=== PATIENT | female | born 1955 | race Hispanic/Latino ===

== ENCOUNTER 2020-11-30 06:25 | Day surgery (SDC) | payer OTHER ==
--- NOTE | 2020-11-27 16:33 | EKG ---
Test Date: 2020-11-27 Test Time: 09:16:48 Hazardous Waste Remover: AIDA MEASUREMENT RESULTS: Intervals: Rate: 83 [place]: 154 QRSD: 78 QT: 364 QTc: 427 [place]: P: 74 [place]: 154 QRS: 2 T: 33 INTERPRETIVE STATEMENTS: Normal sinus rhythm Normal ECG Compared to ECG 02/23/2015 23:13:31 T-wave abnormality no longer present Electronically Signed On 11-27-20 16:32:[address]
[2020-11-30] MEDS ORDERED: NA CHLORIDE 0.9% 1,000 ML ONE (07:07)
[2020-11-30] MEDS ORDERED: ROCURONIUM 50 MG/5 ML VIAL IV ONE (07:29)
[2020-11-30] MEDS ORDERED: FENTANYL CITR 100 MCG/2 ML ONE (07:29)
[2020-11-30] MEDS ORDERED: MIDAZOLAM HCL 2 MG/2 ML INJ ONE (07:29)
[2020-11-30] MEDS ORDERED: LIDOCAINE 2% MPF 5 ML VIAL ONE (07:29)
[2020-11-30] MEDS ORDERED: dexAMETHasone 10 MG/ML VIAL ONE (07:29)
[2020-11-30] MEDS ORDERED: propofoL 200 MG/20 ML VIAL IV ONE (07:29)
[2020-11-30] MEDS ORDERED: ONDANSETRON 4 MG/2 ML VIAL ONE (07:30)
--- NOTE | 2020-11-30 08:07 | P.BOP ---
Preoperative diagnosis: chronic maxillary sinusitis, mucus recirculation Postoperative diagnosis: same Primary procedure: right maxillary antrostomy Wellness Ambassador: NONE,NONE Estimated blood loss: 5ml Specimen: right sinus Findings: very thick mucus recirculation Anesthesia: General Complications: None Implants: Xerogel Fluids & blood products: crystalloid 600ml Transferred to: Recovery Room Condition: Good
[2020-11-30] MEDS ORDERED: GLYCOPYRROLATE 0.2 MG/ML SYR ONE (08:15)
[2020-11-30] MEDS ORDERED: NEOSTIGMINE 1 MG/ML -5 ML ONE (08:15)
[2020-11-30] MEDS ORDERED: OXYMETAZOLINE HCL 0.05% 15ML NAS ONE (08:40)
[2020-11-30] MEDS ORDERED: NA CHLORIDE 0.9% 500 ML ONE (08:40)
[2020-11-30] MEDS ORDERED: MEPERIDINE HCL 25 MG/ML SYR ONE (08:50)
[2020-11-30] MEDS ORDERED: ACETAMINOPHEN 325 MG TABLET ONE (09:35)
[2020-11-30 09:45] VITALS: BP 147/56; TEMP 97; O2SAT 93
--- NOTE | 2020-11-30 19:32 | OP ---
Date of Procedure: 11/30/2020 Surgeon: Jacquelyn Christianson MD Preoperative Diagnosis: Chronic maxillary sinusitis, postnasal drainage with mucus recirculation. Postoperative Diagnoses: Chronic maxillary sinusitis, postnasal drainage with mucus recirculation. Procedure Performed: Nasal endoscopy with right maxillary antrostomy. Surgical Findings: Thick mucus noted to recirculate within the middle meatus which was white to clear in color after revision of the maxillary antrostomy. On the anterior superior edge of the antrostomy, there was an area of pulsation submucosally and additional resection was deferred due to concern for risk of brisk bleeding. Description Of Procedure: The patient was brought to the operating room. She was placed under general anesthesia via oral endotracheal tube. The head of bed was turned 90 degrees. The nasal hairs were trimmed and the nose was packed with Afrin-soaked pledgets. After removal, a 30-degree endoscope was used to perform a nasal endoscopy on the right side. The middle meatus was noted to have a previously created surgical antrostomy with thick white mucus recirculating around a tissue band. A curved suction was used to remove this mucus which was very thick like the consistency of rubber cement. After suctioning, a 70-degree endoscope was used to visualize the region. A-90 degree Blakesley was used to remove the mucosa between the natural and created ostium. Afrin-soaked pledgets were applied. After removal, the nasal cavity was thoroughly irrigated with saline and the area was re-examined. I had a small concern that the clot covered area may be obscuring the true natural ostium but on careful inspection, this anterior-superior portion of the antrostomy was noted to have submucosal pulsation suggesting a moderate arterial vessel underlying and due to this finding, the decision was made to forego further resection. The area was thoroughly suctioned and the middle meatus was packed with a Xerogel dissolvable sinus packing which was then saturated with saline. The nasopharynx was thoroughly suctioned. The procedure was concluded. All pledget counts were reported to me as correct. The patient was then returned to care of anesthesia for awakening extubation in the operating room. Disposition: The patient will be discharged home later today in the care of her family and is instructed to use salt water irrigations 3 to 4 times a day until followup visit. LAVERNE/KUSH Voice ID: [id number] Report ID: [id number] KO
== END 2020-11-30 09:30 | disposition home or self-care (01) ==
LOC: OR 06:25
PROVIDERS: ATTEND Otolaryngology
PROC: 099Q8ZZ Drainage of Right Maxillary Sinus, Via Natural or Artificial Opening Endoscopic (ICD-10-PCS; principal; 2020-11-30 07:30)
DX: J32.0 Chronic maxillary sinusitis (principal); R03.0 Elevated blood-pressure reading, without diagnosis of hypertension; F10.99 Alcohol use, unspecified with unspecified alcohol-induced disorder; Z20.822 Contact with and (suspected) exposure to COVID-19; Z53.09 Procedure and treatment not carried out because of other contraindication
CPT/HCPCS: 93005; 82947 ×2; 31256; U0002; J2704; J2250; J3010; J1100; J2175; J2710; J7040; J7030; J2405

== ENCOUNTER 2021-02-07 15:28 | Emergency (ER) | payer OTHER ==
--- OUTSIDE RECORDS SUMMARY | 2021-02-07 15:31 | XMS REPORT | Continuity of Care Document ---
:[address] [facility] t Address [address] [place] [address] Care Team Providers Name Role Phone Alcon Pérez MD Attending Clinician Problems This patient has no known problems. Allergies, Adverse Reactions, Alerts This patient has no known allergies or adverse reactions. Medications This patient has no known medications. Procedures This patient has no known procedures. Encounters Start End Encounter Admission Attending Care Care Encounter Source Date/Time Date/Time Type Type Clinicians Facility Department ID 2020-04-09 2020-04-09 Telephone WALDO Pérez [id number] 00:00:00 00:00:00 Jamie Mcrae [id number] Suni [id number] Kellee [id number] nal 092 Building Results This patient has no known results.
[2021-02-07] MEDS ORDERED: METOCLOPRAMIDE 10 MG/2mL INJ ONE (17:39)
[2021-02-07] MEDS ORDERED: MORPHINE 4 MG/ML SYR ONE (17:40)
[2021-02-07] MEDS ORDERED: LORazepam 2 MG/ML VIAL ONE (17:40)
[2021-02-07] MEDS ORDERED: NA CHLORIDE 0.9% 500 ML ONE ×2 (17:40→20:34)
[2021-02-07] MEDS ORDERED: DIPHENHYDRAMINE 50 MG/ML VIAL ONE (17:40)
--- NOTE | 2021-02-07 18:18 | RAD REPORT ---
EXAM DESCRIPTION: CT - Stone Protocol - 02/07/2021 5:40 pm CLINICAL HISTORY: ABD PAIN COMPARISON: Abdomen Pelvis Wo Contrast dated 02/06/2021 TECHNIQUE: Axial [address] imaging of the abdomen and pelvis was performed without IV contrast. No IV contrast was given because of allergy, abnormal renal function, patient refusal or physician re quest. No oral contrast administered. All CT scans are performed using dose optimization technique as appropriate and may include automated exposure control or mA/KV adjustment according to patient size. FINDINGS: No suspicious findings in the lung bases. Mild diffuse fatty infiltration of the liver noted with no focal lesion. Pronounced atrophy of the pa ncreatic parenchyma noted. No pancreatic mass lesions seen. Spleen is unremarkable. Cholecystectomy c lips are present. No biliary tree dilatation. Duodenal diverticulum is present. No hydronephrosis or suspicious renal mass. No significant adrenal finding. Isodense renal masses an d pyelonephritis cannot be excluded in the absence of IV contrast. Urinary bladder is fully contracte d. Uterus and ovaries show no acute or suspicious findings. A 2.6 centimeter persistent ovarian or pa raovarian low-density mass left adnexa again noted. No dilated bowel loops or bowel wall thickening. Left-sided colonic diverticulosis without diverticul itis. No free air, free fluid or inflammatory stranding. No hernia, mass or bulky lymphadenopathy. No suspicious bony findings. Right pelvis surgical change noted. Neurostimulator wires in place with battery pack in the left flank fatty tissues. IMPRESSION: Non-contrast enhanced CT abdomen and pelvis imaging show no acute or emergent finding. Nonacute findings detailed in the body of the report. Full assessment is limited is the absence of IV contrast.
[2021-02-07 19:09] LABS: Absolute Lymphocytes (CBC) 1.8 K/uL (0.7-4.9); Basophils % 0.4 % (0-1.3); Hematocrit 37.8 % (36.0-45.0); Lymphocytes % 25.4 % (15.3-44.8); MPV 8.6 fL (7.6-11.3); RBC Red Blood Cell Count 4.53 M/uL (3.86-4.86)
[2021-02-07 19:24] LABS: ALT/SGPT 26 U/L (12-78); AST/SGOT 19 U/L (15-37); Albumin 3.5 g/dL (3.4-5.0); Alkaline Phosphatase 112 U/L (45-117); BUN Blood Urea Nitrogen 16 mg/dL (7-18); Bicarbonate 25 mmol/L (21-32); Bilirubin Direct 0.2 mg/dL (0-0.2); Bilirubin Total 0.5 mg/dL (0.2-1.0); Glucose Level 106 mg/dL (74-106); Lipase 54 U/L (73-393); Potassium 3.6 mmol/L (3.5-5.1); Protein, Total 6.9 g/dL (6.4-8.2); Sodium Level 139 mmol/L (136-145)
--- NOTE | 2021-02-07 20:41 | EDPHYS ---
Physician Documentation [facility] Name: Tina Elizalde Age: 65 yrs Sex: Female : 1955 Arrival Date: 02/07/2021 Time: 15:31 Bed 15 Private MD: Wilfrido Miller ED Physician Tom Saravia HPI: 02/07 17:10 This 65 yrs old Female presents to ER via Wheelchair with complaints of Chest jmm Pain, Back Pain, Abdominal Pain, Diarrhea. 17:10 The patient presents with abdominal pain. Onset: The symptoms/episode began/occurred jmm gradually. The symptoms do not radiate. Associated signs and symptoms: Pertinent positives: diarrhea. The symptoms are described as achy. Modifying factors: The symptoms are alleviated by nothing, the symptoms are aggravated by nothing. This is a 65 year old female with a history of DM, HTN, pancreatitis, that presents to the ED with complaints of lower abdominal pain, bloody diarrhea. Sent by GI due to intractable pain. Symptoms have been chronic but worsened over the past week. Recent colonoscopy in December. . Historical: - Allergies: 16:00 TETRACYCLINES; jd3 16:00 Bactrim; jd3 16:00 Solu-Medrol; jd3 16:00 Iodine and Iodide Containing Products; jd3 - PMHx: 16:00 Diabetes - IDDM; Hypertension; Pancreatitis; heart problems; jd3 - PSHx: 16:00 Tonsillectomy; Cholecystectomy; back; jd3 - Immunization history:: Adult Immunizations up to date. - Social history:: Smoking status: Patient denies any tobacco usage or history of. ROS: 17:10 Constitutional: Negative for fever, chills, and weight loss, Cardiovascular: Negative jmm for chest pain, palpitations, and edema, Respiratory: Negative for shortness of breath, cough, wheezing, and pleuritic chest pain. 17:10 Abdomen/GI: Positive for abdominal pain. 17:10 All other systems are negative. Exam: 17:10 Head/Face: atraumatic. Eyes: EOMI, no conjunctival erythema appreciated ENT: Moist jmm Mucus Membranes Neck: Trachea midline, Supple Chest/axilla: Normal chest wall appearance and motion. Cardiovascular: Regular rate and rhythm. No edema appreciated Respiratory: Normal respirations, no respiratory distress appreciated 17:10 Back: Normal ROM Skin: General appearance color normal MS/ Extremity: Moves all extremities, no obvious deformities appreciated, no edema noted to the lower extremities Neuro: Awake and alert, normal gait Psych: Behavior is normal, Mood is normal, Patient is cooperative and pleasant 17:10 Constitutional: The patient appears alert, awake, anxious, uncomfortable. 17:10 Abdomen/GI: Inspection: abdomen appears normal, Bowel sounds: normal, Palpation: soft, moderate abdominal tenderness, in the suprapubic area, right lower quadrant and left lower quadrant. Vital Signs: 16:00 BP 120 / 91; Pulse 89; Resp 17 S; Temp 97.5(TE); Pulse Ox 98% on R/A; Weight 63.5 kg jd3 (R); Height 5 ft. 1 in. (154.94 cm) (R); Pain 9/10; 20:15 BP 140 / 67; Pulse 83; Resp 16; Pulse Ox 98% on R/A; jb4 20:45 BP 125 / 53; Pulse 83; Resp 18; Pulse Ox 97% on R/A; jb4 16:00 Body Mass Index 26.45 (63.50 kg, 154.94 cm) jd3 MDM: 17:10 Patient medically screened. [facility] 20:25 Data reviewed: vital signs, nurses notes. ED course: NARX SCORE = 110. [facility] 20:37 Counseling: I had a detailed discussion with the patient and/or guardian regarding: the [facility] historical points, exam findings, and any diagnostic results supporting the discharge/admit diagnosis, lab results, radiology results, the need for outpatient follow up, to return to the emergency department if symptoms worsen or persist or if there are any questions or concerns that arise at home. ED course: Pain relieved in the ED. Will follow up with Dr. Rousseau tomorrow for reevaluation. Patient is otherwise given strict return precautions. Patient/familty understood and agrees with the plan of care. . 02/07 17:12 Order name: Basic Metabolic Panel; Complete Time: 19:29 [facility] 02/07 17:12 Order name: CBC with Diff; Complete Time: :29 [facility] 02/07 17:12 Order name: Hepatic Function; Complete Time: :29 [facility] 02/07 17:12 Order name: Lipase; Complete Time: :29 [facility] 02/07 17:12 Order name: CT Stone Protocol; Complete Time: 18:19 [facility] 02/07 17:25 Order name: Troponin (emerg Dept Use Only); Complete Time: 19:33 [facility] 02/07 17:12 Order name: IV Saline Lock; Complete Time: 18:49 [facility] 02/07 17:12 Order name: Labs collected and sent; Complete Time: 18:49 [facility] 02/07 17:25 Order name: EKG - Nurse/Tech; Complete Time: 18:48 [facility] Administered Medications: 18:47 Drug: NS 0.9% 500 ml Route: IV; Rate: bolus; Site: right wrist; tr6 18:48 Drug: Ativan (LORazepam) 1 mg Route: IVP; Site: right wrist; tr6 18:48 Drug: diphenhydrAMINE 12.5 mg Route: IVP; Site: right wrist; tr6 18:48 Drug: Reglan (metoCLOPramide) 10 mg Route: IVP; Site: right wrist; tr6 18:49 Drug: morphine 4 mg Route: IVP; Site: right wrist; tr6 20:18 Drug: NS 0.9% 500 ml Route: IV; Rate: bolus; Site: right wrist; jb4 20:45 Follow up: Response: No adverse reaction; IV Status: Completed infusion; IV Intake: jb4 500ml Disposition: 02/07/21 20:40 Discharged to Home. Impression: Lower abdominal pain, unspecified. - Condition is Stable. - Discharge Instructions: Abdominal Pain, Adult. - Prescriptions for Zofran 4 mg Oral tablet - take 1 tablet by ORAL route 4 times per day; 20 tablet. Bentyl 20 mg Oral Tablet - take 2 tablet by ORAL route every 6 hours As needed; 40 tablet. Cipro 500 mg Oral Tablet - take 1 tablet by ORAL route every 12 hours for 10 days; 20 tablet. Flagyl 500 mg Oral Tablet - take 1 tablet by ORAL route every 6 hours for 10 days; 40 tablet. Tylenol- Codeine #3 300-30 mg Oral Tablet - take 1 tablet by ORAL route every 4-6 hours As needed; 12 tablet. - Medication Reconciliation Form, Thank You Letter, Antibiotic Education, Prescription Opioid Use form. - Follow up: Trey Rousseau MD; When: 1 - 2 days; Reason: Recheck today's complaints, Continuance of care, Re-evaluation by your physician. Signatures: Dispatcher [employer] EDMarcell Mosqueda PA PA jmm Bryson, James, RN RN jb4 Zaid Velarde RN RN jd3 Annmarie Traore RN RN tr6 Corrections: (The following items were deleted from the chart) 21:11 17:12 Urine Dipstick-Ancillary ordered. cristy munguia 21:13 20:40 02/07/2021 20:40 Discharged to Home. Impression: Lower abdominal pain, jb4 unspecified. Condition is Stable. Forms are Medication Reconciliation Form, Thank You Letter, Antibiotic Education, Prescription Opioid Use. Follow up: Trey Rousseau; When: 1 - 2 days; Reason: Recheck today's complaints, Continuance of care, Re-evaluation by your physician. cristy
--- NOTE | 2021-02-07 20:41 | ER ---
Nurse's Notes [facility] Name: Tina Elizalde Age: 65 yrs Sex: Female : 1955 Arrival Date: 02/07/2021 Time: 15:31 Bed 15 Private MD: Wilfrido Miller Diagnosis: Lower abdominal pain, unspecified Presentation: 02/07 15:57 Chief complaint: Patient states: "I am having some chest pain and diarrhea and nausea jd3 and vomiting.". Coronavirus screen: At this time, the client does not indicate any symptoms associated with coronavirus-19. Ebola Screen: Patient negative for fever greater than or equal to 101.5 degrees Fahrenheit, and additional compatible Ebola Virus Disease symptoms. Initial Sepsis Screen: Does the patient meet any 2 criteria? No. Patient's initial sepsis screen is negative. Does the patient have a suspected source of infection? No. Patient's initial sepsis screen is negative. Risk Assessment: Do you want to hurt yourself or someone else? Patient reports no desire to harm self or others. Onset of symptoms was February 07, 2021. 15:57 Method Of Arrival: Wheelchair jd3 15:57 Acuity: ALETHEA 2 jd3 Historical: - Allergies: 16:00 TETRACYCLINES; jd3 16:00 Bactrim; jd3 16:00 Solu-Medrol; jd3 16:00 Iodine and Iodide Containing Products; jd3 - PMHx: 16:00 Diabetes - IDDM; Hypertension; Pancreatitis; heart problems; jd3 - PSHx: 16:00 Tonsillectomy; Cholecystectomy; back; jd3 - Immunization history:: Adult Immunizations up to date. - Social history:: Smoking status: Patient denies any tobacco usage or history of. Screenin:57 Abuse screen: Denies threats or abuse. Denies injuries from another. Nutritional tr6 screening: No deficits noted. Tuberculosis screening: No symptoms or risk factors identified. Fall Risk None identified. Assessment: 16:54 General: Appears distressed, uncomfortable, Behavior is crying. Pain: Complains of pain tr6 in c/o "lower abdominal pain radiating to pelvis and down b/l legs". Pain: Neuro: No deficits noted. Cardiovascular: No deficits noted. Respiratory: No deficits noted. GI: Abdomen is distended, Reports bloody stool. : No deficits noted. EENT: No deficits noted. Derm: No deficits noted. Musculoskeletal: No deficits noted. 17:36 Reassessment: pt transferred to AR via wheelchair. tr6 20:00 Reassessment: Patient appears in no apparent distress at this time. Patient and/or jb4 family updated on plan of care and expected duration. Pain level reassessed. Patient is alert, oriented x 3, equal unlabored respirations, skin warm/dry/pink. 21:00 Reassessment: Patient appears in no apparent distress at this time. Patient and/or jb4 family updated on plan of care and expected duration. Pain level reassessed. Patient is alert, oriented x 3, equal unlabored respirations, skin warm/dry/pink. Vital Signs: 16:00 BP 120 / 91; Pulse 89; Resp 17 S; Temp 97.5(TE); Pulse Ox 98% on R/A; Weight 63.5 kg j (R); Height 5 ft. 1 in. (154.94 cm) (R); Pain 9/10; 20:15 BP 140 / 67; Pulse 83; Resp 16; Pulse Ox 98% on R/A; jb4 20:45 BP 125 / 53; Pulse 83; Resp 18; Pulse Ox 97% on R/A; jb4 16:00 Body Mass Index 26.45 (63.50 kg, 154.94 cm) [facility] ED Course: 15:31 Patient arrived in ED. mr 15:31 Wilfrido Miller MD is Private Physician. mr 15:57 Triage completed. jd3 16:00 Arm band placed on. jd3 16:01 EKG completed in triage. Results shown to MD. jd3 16:48 Annmarie Traore, RN is Primary Nurse. tr6 16:49 Marcell Mcneil PA is PHCP. [facility] 16:49 Tom Saravia MD is Attending Physician. [facility] 16:57 Patient has correct armband on for positive identification. Bed in low position. Call tr6 light in reach. Side rails up X 1. city auditor on. Pulse ox on. NIBP on. Door closed. Noise minimized. Visitors limited. Lights dimmed. Moved to private room. Warm blanket given. Diet: Patient is NPO. 16:57 No provider procedures requiring assistance completed. Patient maintains SpO2 tr6 saturation greater than 95% on room air. 17:40 CT Stone Protocol In Process Unspecified. EDMS 18:48 EKG done, by ED staff, reviewed by Marcell ROBERTS. mh5 18:49 Inserted saline lock: 22 gauge in right wrist, using aseptic technique. tr6 20:40 Trey Rousseau MD is Referral Physician. jmm 21:12 IV discontinued, intact, bleeding controlled, No redness/swelling at site. Pressure jb4 dressing applied. Administered Medications: 18:47 Drug: NS 0.9% 500 ml Route: IV; Rate: bolus; Site: right wrist; tr6 18:48 Drug: Ativan (LORazepam) 1 mg Route: IVP; Site: right wrist; tr6 18:48 Drug: diphenhydrAMINE 12.5 mg Route: IVP; Site: right wrist; tr6 18:48 Drug: Reglan (metoCLOPramide) 10 mg Route: IVP; Site: right wrist; tr6 18:49 Drug: morphine 4 mg Route: IVP; Site: right wrist; tr6 20:18 Drug: NS 0.9% 500 ml Route: IV; Rate: bolus; Site: right wrist; jb4 20:45 Follow up: Response: No adverse reaction; IV Status: Completed infusion; IV Intake: jb4 500ml Intake: 20:45 IV: 500ml; Total: 500ml. jb4 Outcome: 20:40 Discharge ordered by . jmm 21:12 Discharged to home via wheelchair, with family. jb4 21:12 Condition: stable 21:12 Discharge instructions given to patient, family, Instructed on discharge instructions, follow up and referral plans. medication usage, Demonstrated understanding of instructions, follow-up care, medications, Prescriptions given X 5 21:13 Patient left the ED. jb4 Signatures: Dispatcher [employer] EDMS Marcell Mcneil PA PA jmm Rivera, Mary mr Bryson, James RN RN Rachel Gandhi Zaid Hernandez RN RN jd3 Annmarie Traore RN RN tr6
[2021-02-07 21:33] VITALS: TEMP 97.5
[2021-02-07 21:36] VITALS: BP 125/53; O2SAT 97
--- NOTE | 2021-02-08 15:57 | EKG ---
Test Date: 2021-02-07 Test Time: 18:58:09 Wind Up Operator: MAI MEASUREMENT RESULTS: Intervals: Rate: 85 HI: 182 QRSD: 76 QT: 376 QTc: 447 [place]: P: 70 HI: 182 QRS: -1 T: 13 INTERPRETIVE STATEMENTS: Normal sinus rhythm Possible Anterior infarct, age undetermined Abnormal ECG Compared to ECG 02/07/2021 16:05:25 No significant changes Electronically Signed On 02-08-21 15:56:[address]
--- NOTE | 2021-02-08 15:58 | EKG ---
Test Date: 2021-02-07 Test Time: 16:05:25 Web Applications Developer: HUANG MEASUREMENT RESULTS: Intervals: Rate: 85 DC: 164 QRSD: 74 QT: 370 QTc: 440 [place]: P: 77 DC: 164 QRS: -1 T: 35 INTERPRETIVE STATEMENTS: Normal sinus rhythm Possible Anterior infarct, age undetermined Abnormal ECG Compared to ECG 11/27/2020 09:16:48 Myocardial infarct finding now present Electronically Signed On 02-08-21 15:56:[address]
== END 2021-02-07 21:13 | disposition home or self-care (01) ==
LOC: ER 15:28
DX: R10.30 Lower abdominal pain, unspecified (principal); E11.9 Type 2 diabetes mellitus without complications; I10 Essential (primary) hypertension; Z88.1 Allergy status to other antibiotic agents; Z88.8 Allergy status to other drugs, medicaments and biological substances; Z91.048 Other nonmedicinal substance allergy status
CPT/HCPCS: 93005 ×2; 85025; 80048; 36415; 80076; 84484; 83690; 76377; 74176; J2765; J1200; J7040 ×2

== ENCOUNTER 2022-02-19 06:28 | Day surgery (SDC) | payer OTHER ==
[2022-02-18 09:39] LABS: Absolute Lymphocytes (CBC) 1.8 K/uL (0.7-4.9); Hematocrit 35.2 % (36.0-45.0); Lymphocytes % 26.1 % (15.3-44.8); MCV 84.5 fL (80-100); MPV 8.2 fL (7.6-11.3); RBC Red Blood Cell Count 4.17 M/uL (3.86-4.86)
--- NOTE | 2022-02-18 09:54 | RAD REPORT ---
EXAM DESCRIPTION: RAD - Chest Pa And Lat (2 Views) - 02/18/2022 9:34 am CLINICAL HISTORY: Pre op pending mass removal COMPARISON: Portable 02/22/2015 TECHNIQUE: Frontal and lateral views of the chest were obtained. FINDINGS: The lungs are clear of an acute process. Interstitial pattern is not substantially differe nt from prior imaging. Heart size is normal and central vasculature is within normal limits. No pl eural effusion or pneumothorax seen. No acute bony finding noted. No aortic abnormality. IMPRESSION: No acute cardiopulmonary process. No significant change from comparison study.
[2022-02-18 10:03] LABS: Potassium 3.8 mmol/L (3.5-5.1)
[2022-02-18 10:07] LABS: SARS-CoV-2 Antigen Rapid Res Negative (Negative)
--- NOTE | 2022-02-18 12:46 | EKG ---
Test Date: 2022-02-18 Test Time: 09:08:05 Sewing Supervisor: AIDA MEASUREMENT RESULTS: Intervals: Rate: 79 [place]: 162 QRSD: 78 QT: 368 QTc: 421 [place]: P: 47 [place]: 162 QRS: 4 T: 13 INTERPRETIVE STATEMENTS: Normal sinus rhythm Normal ECG Compared to ECG 02/07/2021 18:58:09 Myocardial infarct finding no longer present Electronically Signed On 02-18-22 12:46:21 CDT by Demarco Carter
[2022-02-19] MEDS ORDERED: NA CHLORIDE 0.9% 1,000 ML ONE (06:55)
[2022-02-19] MEDS ORDERED: FENTANYL CITR 100 MCG/2 ML ONE (07:12)
[2022-02-19] MEDS ORDERED: LIDOCAINE 1% MPF 5 ML VIAL ONE (07:12)
[2022-02-19] MEDS ORDERED: propofoL 200 MG/20 ML VIAL IV ONE (07:12)
[2022-02-19] MEDS ORDERED: ONDANSETRON 4 MG/2 ML VIAL ONE ×2 (07:38→09:48)
[2022-02-19] MEDS ORDERED: ONDANSETRON 4 MG/2 ML VIAL IV ONE (07:40)
[2022-02-19] MEDS: CEFAZOLIN SODIUM 1 GM/VIAL ONE ×2 (08:10→08:35)
[2022-02-19] MEDS ORDERED: NS 0.9% VIAL 10 ML ONE ×2 (08:16→08:44)
[2022-02-19] MEDS ORDERED: KETOROLAC 30 MG/ML INJ ONE (08:31)
[2022-02-19] MEDS ORDERED: EPHEDRINE SULF 50 MG/ML VIAL ONE (08:44)
--- NOTE | 2022-02-19 09:23 | P.BOP ---
Preoperative diagnosis: Right buttock deep tender subQ mass Postoperative diagnosis: same Primary procedure: Excisional biopsy Right buttock deep tender subQ mass 4x4cm Estimated blood loss: <10cc Specimen: mass Findings: mass Anesthesia: General Complications: None Drain(s): RYAN drain Transferred to: Recovery Room Condition: Good
[2022-02-19] MEDS: MORPHINE 4 MG/ML SYR ONE ×4 (09:35→09:56)
[2022-02-19] MEDS: PROMETHAZINE INJ 25 MG/ML AMP ONE ×2 (10:01→10:08)
[2022-02-19 12:23] VITALS: BP 172/76; TEMP 98; O2SAT 99
--- NOTE | 2022-02-19 13:05 | OP ---
Date of Procedure: 02/19/2022 Surgeon: Livan Logan MD Preoperative Diagnosis: Right buttock deep tender subcutaneous mass. Postoperative Diagnosis: Right buttock deep tender subcutaneous mass. Procedure: Excisional biopsy right buttock deep tender subcutaneous mass 4 x 4 cm. Estimated Blood Loss: Less than 10 mL. Finding: Mass. Anesthesia: General plus local. Indication: This is the case of a 66-year-old patient, who comes to us with a tender right buttock m ass. The area is getting bigger. She wants that excised. The benefits, alternatives, and risks of excision fully explained, which include, but not limited to infection, bleeding, damage to adjacent s tructures, anesthesia complication, DC, even . She also understands this may not relieve any sy mptoms. She might need more than one surgical intervention. She understood and signed a consent. Procedure In Detail: The patient was brought to the operating room, placed in supine position. Anes thesia was done without complication. The patient was placed in lateral decubitus position with prop er protection. The area of concern was marked previously by me and the patient in the holding room. So, after prepping that area, we made an incision right in that region. We left the local anestheti c for the end since we do not want to just disturb the anatomy. Once incision was made, we noticed t he deep mass inside. We have to go deep at least 2 to 3 cm deep and then we found this mass near the muscle on the buttock region. The mass had to be completely excised leaving a cavity behind. The a danielito was irrigated. Hemostasis was obtained. This is promptly seroma because of the location and the size of it, so I proceeded to leave a RYAN drain in that area exiting through another site, secured th at in place with 3-0 nylon. The area was irrigated. Then, we proceeded to close this in layers; bryan p layers with 3-0 chromic and 3-0 chromic and then stitched outside with 3-0 nylon and sterile dressi ngs on top. Hemostasis and irrigation were obtained before closure, also local anesthetic. The carson ent tolerated the procedure well. The patient was sent to recovery in stable condition. DARIO/KUSH Voice ID: [id number] Report ID: [id number]
--- NOTE | 2022-02-19 13:05 | DS ---
Date of Discharge: 02/19/2022 Diagnosis: Right buttock tender subcutaneous mass. Procedure: Excisional biopsy of right buttock deep tender subcutaneous mass. Disposition: Home. Activity: As tolerated. No heavy lifting. Plan: Follow up in my office in 1 week. Call for appointment at [phone]. The patient J P drain and record the output every 24 hours. Medications: See orders. DARIO/KUSH Voice ID: [id number] Report ID: [id number]
== END 2022-02-19 11:17 | disposition home or self-care (01) ==
LOC: OR 06:28
PROVIDERS: ATTEND Surgery
PROC: 0JB90ZZ Excision of Buttock Subcutaneous Tissue and Fascia, Open Approach (ICD-10-PCS; principal; 2022-02-19 08:30)
DX: D17.1 Benign lipomatous neoplasm of skin and subcutaneous tissue of trunk (principal); Z20.822 Contact with and (suspected) exposure to COVID-19
CPT/HCPCS: 93005; 85025; 80048; 36415; 82947 ×2; 88304; 71046; 87811; 11404; J2704; J2550; J3010; J7030; J2405 ×3; J0690; 88305

== ENCOUNTER 2023-11-30 11:06 | Emergency (ER) | payer OTHER ==
--- OUTSIDE RECORDS SUMMARY | 2023-11-30 11:10 | XMS REPORT | Continuity of Care Document ---
Author Name Unknown Address [address] [facility] [address] [place] [address] [facility] thconnect Address [address] [facility] [address] [place] [address] Care Team Providers Care Install And Repair Technician Name Role Phone Wilfrido Miller Primary Care Physician [phone] SHERRI LOPEZ Attending Clinician Unavailable Lab, Ang - Db Attending Clinician Unavailable Sherri Lopez MD Attending Clinician [phone] TRINI TRIMBLE Attending Clinician Unavailable Geovani CULLEN, Renee Attending Clinician [phone] DO MALONE Attending Clinician Unavailable DO MALONE Attending Clinician Unavailable [email or web address]_Kadiyala_S Attending Clinician Unavaila ble Doctor Unassigned, Eleele Attending Clinician U RENEE Camarena Attending Clinician Unavailable SANYA Attending Clinician Unavailable JAMIE PÉREZ Attending Clinician Unavail able JAMIE PÉREZ Attending Clinician Unavail able GERARDO KAT Attending Clinician Unavailable MONICA LEON Attending Clinician Unavailable Therapy, Adc Covid Infusion Attending Clinician Unavailable Monica Leon MD Attending Clinician [phone] Jamie Pérez MD Attending Clinician [phone] ERIKA GREY Attending Clinician Unavaila miguel Pob, [facility] Main Attending Clinician Unavailmiles mishra Rai, MD, Erika Rascon Attending Clinician + [phone] OLIVIA STEVENS Attending Clinician Unavailable RHEA CRUZ Attending Clinician Unavailab cade JEFFRIES, ENTER NAME IN NOTES Attending Clinician U MARISOL Aviles Attending Clinician Unavailable Demarco Carter Attending Clinician Unavailable MIREYA WEAVER Attending Clinician Unavail able CLARICE JENKINS Attending Clinician Unavailable TAMMIE LOPEZ Attending Clinician Unavail able JORDYN SAMPSON Attending Clinician Unavailab AZAEL Shelton Attending Clinician Unavailable JENNIFER DIGGS Attending Clinician Unavailable SUPRIYA MICHEL Attending Clinician Unavailable KACI PARRISH Attending Clinician Unavailable LEAH COLUNGA Attending Clinician Unavailable ARIANA DIAZ Attending Clinician Unavail able TAYA BONILLA Attending Clinician Unavailab TRINI Chapman Admitting Clinician Unavailable GC_GCBZW_Kadiyala_S Admitting Clinician Unavaila miguel SEGUNDO Admitting Clinician Unavailable OLIVIA STEVENS Admitting Clinician Unavailable Demarco Carter Admitting Clinician Unavailable MIREYA WEAVER Admitting Clinician Unavail able JORDYN SAMPSON Admitting Clinician Unavailab SUPRIYA Jean Admitting Clinician Unavailable JOE CHI Admitting Clinician Unavailable UMM COLMENARESURRABColin Admitting Clinician Unavailable Payers Payer Name Policy Type Policy Number Effective Date Expirati on Date Source Problems Condition Name Condition Details Condition Category Status Onset Date Resolution Date Last Treatment Date Treating Clinician Comments Source No known active problems No known active problems Disease [facility] Allergies, Adverse Reactions, Alerts Allergy Name Allergy Type Status Severity Reaction(s) Onset Date Inactive Date Treating Clinician Comments Source Tetracyc line Propensi ty to adverse reaction s Active Unknown - See comments 04-11 00:00: 00 Gets pancreati tis [facility] DECONGES T DRUG Active Palpitations 04-11 00:00: 00 [facility] ETODOLAC DRUG INGREDI Active Swelling 04-11 00:00: 00 [facility] SOLU-MED ROL MIX-O- AL DRUG Active Palpitations 04-11 00:00: 00 [facility] TETRACYC LINE DRUG INGREDI Active Unknown-Cmnt 04-11 00:00: 00 [facility] Deconges t Propensi ty to adverse reaction s Active Palpitations 04-11 00:00: 00 [facility] Etodolac Propensi ty to adverse reaction s Active Swelling 04-11 00:00: 00 [facility] Solu-Med rol Mix-O-Vi al Propensi ty to adverse reaction s Active Palpitations 04-11 00:00: 00 [facility] NO KNOWN ALLERGIE S Drug Class Active [facility] Social History Social Habit Start Date Stop Date Quantity Comments Source [facility] of Social function 2023-07-22 00:00:00 2023-07-22 00:00:00 [facility] Exposure to SARS-CoV-2 (event) 2022-04-06 00:00:00 2022-04-16 10:38:00 Not sure [facility] Sex Assigned At 1955 00:00:00 1955 00:00:00 [facility] Smoking Status Start Date Stop Date Source Tobacco smoking consumption unknown [facility] Medications Ordered Medication Name Filled Medication Name Start Date Stop Date Current Medication? Ordering Clinician Indication Dosage Frequency Signature (SIG) Comments Components Source empaglifloz in (JARDIANCE) 25 mg Tab tablet 11-29 00:00: 00 Yes [id number] 25mg Take 1 tablet by mouth in the morning. [facility] metformin ER 750 mg 24 hr tablet 11-29 00:00: 00 Yes [id number] 750mg Take 1 tablet by mouth in the morning and 1 tablet in the evening. [facility] metoprolol succinate XL 25 mg 24 hr tablet 11-17 00:00: 00 Yes Take 1 tablet every day by oral route. [facility] METFORMIN ER 750 mg 24 hr tablet 10-07 00:00: 00 11-29 00:00 :00 No [id number] 750mg TAKE 1 TABLET BY MOUTH DAILY WITH BREAKFAST [facility] empaglifloz in (JARDIANCE) 25 mg Tab 2022-08 00:00: 00 11-29 00:00 :00 No [id number] 25mg Take 1 tablet by mouth in the morning. [facility] empaglifloz in (JARDIANCE) 10 mg 2022-08 00:00: 00 07-22 00:00 :00 No [id number] 10mg TAKE 1 TABLET BY MOUTH IN THE MORNING [facility] pantoprazol e 40 mg EC tablet 01-20 08:51: 48 Yes 40mg Take 1 tablet by mouth in the morning and 1 tablet in the evening. [facility] ranolazine 500 mg 12 hr tablet 01-20 08:51: 48 Yes ranolazine ER 500 mg tablet,ext ended release,12 hr TAKE 1 TABLET BY MOUTH TWICE DAILY [facility] metformin ER 750 mg 24 hr tablet 01-20 00:00: 00 10-07 00:00 :00 No [id number] 750mg Take 1 tablet by mouth daily with breakfast. [facility] empaglifloz in 10 mg 01-20 00:00: 00 07-06 00:00 :00 No [id number] 10mg Take 1 tablet by mouth in the morning. [facility] cyclobenzap rine 10 mg tablet 511 00:00: 00 Yes [facility] pantoprazol e 40 mg EC tablet 04-16 10:58: 15 Yes 40mg Take 40 mg by mouth 2 (two) times daily. [facility] pravastatin 40 mg tablet 04-16 10:58: 15 Yes 40mg Take 40 mg by mouth at bedtime. [facility] diphenhydrA MINE 50 mg capsule 04-16 10:58: 15 Yes 50mg Take 50 mg by mouth at bedtime. [facility] metformin ER 750 mg 24 hr tablet 04-16 00:00: 00 01-20 00:00 :00 No [id number] 750mg Take 1 tablet by mouth daily with breakfast. [facility] busPIRone 5 mg tablet 12-20 00:00: 00 Yes 5mg Take 5 mg by mouth. [facility] pantoprazol e 40 mg EC tablet 03-02 14:51: 48 Yes 40mg Take 40 mg by mouth 2 (two) times daily. [facility] pravastatin 40 mg tablet 03-02 14:51: 48 Yes 40mg Take 40 mg by mouth at bedtime. [facility] diphenhydrA MINE 50 mg capsule 03-02 14:51: 48 Yes 50mg Take 50 mg by mouth at bedtime. [facility] pantoprazol e 40 mg EC tablet 03-02 09:51: 48 Yes 40mg Take 40 mg by mouth 2 (two) times daily. [facility] pravastatin 40 mg tablet 03-02 09:51: 48 Yes 40mg Take 40 mg by mouth at bedtime. [facility] diphenhydrA MINE 50 mg capsule 03-02 09:51: 48 Yes 50mg Take 50 mg by mouth at bedtime. [facility] famotidine 40 mg tablet 4-22 00:00: 00 Yes 40mg Take 40 mg by mouth daily. [facility] cetirizine 10 mg tablet 3-13 00:00: 00 Yes 10mg Take 10 mg by mouth. [facility] escitalopra m oxalate 20 mg tablet 09-27 00:00: 00 Yes 10mg Take 10 mg by mouth at bedtime. [facility] metFORMIN 500 mg tablet 2018-08 00:00: 00 04-16 00:00 :00 No 500mg Take 500 mg by mouth 2 (two) times daily. [facility] Vital Signs Vital Name Observation Time Observation Value Comments S niesha Systolic blood pressure 2023-11-30 14:35:00 129 mm[Hg] [facility] Diastolic blood pressure 2023-11-30 14:35:00 81 mm[Hg] [facility] Heart rate 2023-11-30 14:35:00 81 [facility] 2023-11-30 14:35:00 154.9 cm [facility] Body weight 2023-11-30 14:35:00 61.054 kg [facility] BMI 2023-11-30 14:35:00 25.43 kg/m2 [facility] Oxygen saturation in Arterial blood by Pulse oximetry 2023-11-30 14:35:00 98 /min [facility] Systolic blood pressure 2023-07-22 15:21:00 139 mm[Hg] [facility] Diastolic blood pressure 2023-07-22 15:21:00 63 mm[Hg] [facility] Heart rate 2023-07-22 15:21:00 85 /min Unive [facility] Body height 2023-07-22 15:21:00 154.9 cm [facility] Body weight 2023-07-22 15:21:00 60.51 kg [facility] BMI 2023-07-22 15:21:00 25.21 kg/m2 [facility] Oxygen saturation in Arterial blood by Pulse oximetry 2023-07-22 15:21:00 97 /min [facility] Systolic blood pressure 2023-01-20 13:38:00 153 mm[Hg] [facility] Diastolic blood pressure 2023-01-20 13:38:00 78 mm[Hg] [facility] Heart rate 2023-01-20 13:38:00 80 /min [facility] 2023-01-20 13:38:00 154.9 cm [facility] weight 2023-01-20 13:38:00 64.819 kg [facility] BMI 2023-01-20 13:38:00 27.00 kg/m2 [facility] Systolic blood pressure 2022-04-16 16:03:00 144 mm[Hg] [facility] Diastolic blood pressure 2022-04-16 16:03:00 77 mm[Hg] [facility] Heart rate 2022-04-16 16:02:00 65 /min [facility] Body height 2022-04-16 16:02:00 154.9 cm Univ [facility] Body weight 2022-04-16 16:02:00 61.1 kg Univ [facility] BMI 2022-04-16 16:02:00 25.45 kg/m2 [facility] Oxygen saturation in Arterial blood by Pulse oximetry 2022-04-16 16:02:00 96 /min [facility] Systolic blood pressure 2021-04-11 22:12:00 144 mm[Hg] [facility] Diastolic blood pressure 2021-04-11 22:12:00 54 mm[Hg] [facility] Heart rate 2021-04-11 22:12:00 95 /min Unive [facility] Body temperature 2021-04-11 22:12:00 36.28 Sammie [facility] Respiratory rate 2021-04-11 22:12:00 20 /min [facility] Oxygen saturation in Arterial blood by Pulse oximetry 2021-04-11 22:12:00 97 /min [facility] Body height 2021-04-11 20:49:00 154.9 cm [facility] Body weight 2021-04-11 20:49:00 67.132 kg Univ [facility] BMI 2021-04-11 20:49:00 27.96 kg/m2 [facility] BMI 2020-03-02 14:51:00 27.85 kg/m2 [facility] Oxygen saturation in Arterial blood by Pulse oximetry 2020-03-02 14:51:00 97 /min [facility] Systolic blood pressure 2020-03-02 14:51:00 125 mm[Hg] [facility] Diastolic blood pressure 2020-03-02 14:51:00 64 mm[Hg] [facility] Heart rate 2020-03-02 14:51:00 84 /min Unive [facility] Respiratory rate 2020-03-02 14:51:00 18 /min [facility] Body height 2020-03-02 14:51:00 154.9 cm [facility] Body weight 2020-03-02 14:51:00 66.86 kg [facility] Systolic blood pressure 2019-12-20 15:11:00 131 mm[Hg] [facility] Diastolic blood pressure 2019-12-20 15:11:00 65 mm[Hg] [facility] Heart rate 2019-12-20 15:11:00 78 /min Unive [facility] Body temperature 2019-12-20 15:11:00 36.61 Sammie [facility] Respiratory rate 2019-12-20 15:11:00 16 /min [facility] Body height 2019-12-20 15:11:00 154.9 cm [facility] Body weight 2019-12-20 15:11:00 65.091 kg [facility] BMI 2019-12-20 15:11:00 27.11 kg/m2 [facility] Procedures Procedure Date / Time Performed Performing Clinician Source POCT HEMOGLOBIN A1C TEST 2023-11-30 14:37:00 Juan Jose Lopez [facility] POCT HEMOGLOBIN A1C TEST 2023-07-22 15:32:00 Do Malone [facility] DME/SUPPLY JUSTIFICATION 2023-02-03 05:01:00 Doc tor Unassigned, Eleele [facility] POCT HEMOGLOBIN A1C TEST 2023-01-20 13:48:00 Estiven Stringer [facility] PATIENT FINANCIAL POLICY 2023-01-20 13:25:25 Doctor Unassigned, Eleele [facility] POCT HEMOGLOBIN A1C TEST 2022-04-16 16:04:00 Estiven Stringer [facility] ASSIGNMENT OF BENEFITS 2022-04-16 15:38:44 Docto r Unassigned, Eleele [facility] REFERRAL- REQUEST/RESPONSE 2022-02-07 05:01:00 Doctor Unassigned, Eleele [facility] CONSENT/REFUSAL FOR DIAGNOSIS AND TREATMENT 2021-04-11 05:01:00 Doctor Unassigned, Eleele [facility] CALCIUM 2019-12-20 16:20:00 Jamie Pérez [facility] CREATINE KINASE 2019-12-20 16:20:00 Jamie Péerz [facility] MAGNESIUM 2019-12-20 16:20:00 Jamie Pérez [facility] VITAMIN B12, LEVEL 2019-12-20 16:20:00 Jamie Pérez [facility] REFERRAL- REQUEST/RESPONSE 2019-10-14 06:01:00 Doctor Unassigned, Eleele [facility] Plan of Care Planned Activity Planned Date Details Comments Source Encounters Start Date/Time End Date/Time Encounter Type Admission Type Attending [facility] Care Facility Care Department Encounter ID Source 2023-11-30 11:30:00 2023-11-30 11:45:00 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 Worker Visit Lab, Ang - Db Sherri Lopez [facility] 1.2.840.114 350.1.13.10 4.2.7.2.686 [id number] [facility] 2023-11-30 11:30:00 2023-11-30 11:30:00 Outpatient R SHERRI LOPEZ [facility] [id number] [facility] 2023-11-30 10:00:00 2023-11-30 10:28:54 Office Visit Sherri Lopez [facility] 1.2.840.114 350.1.13.10 4.2.7.2.686 [id number] [facility] 2023-11-18 23:29:00 2023-11-19 19:15:00 observatio n alexa [facility] [id number] [facility] [id number] 2023-11-18 23:29:00 2023-11-19 19:15:00 Inpatient ER TRINI TRIMBLE [facility] [id number] [facility] 2023-10-06 00:00:00 2023-10-06 00:00:00 Refill Geovani [facility] [id number] 350.1.13.10 4.2.7.2.686 [id number] [facility] 2023-07-22 09:30:00 2023-07-22 09:58:24 Outpatient R FAISAL LEI [facility] [id number] [facility] 2023-07-22 09:30:00 2023-07-22 09:58:24 Office Visit Faisal [facility] 1.2.840.114 350.1.13.10 4.2.7.2.686 [id number] [facility] 2023-07-06 00:00:00 2023-07-06 00:00:00 Telephone Geovani [facility] 1.2.840.114 350.1.13.10 4.2.7.2.686 [id number] [facility] 2023-06-13 00:00:00 2023-06-13 00:00:00 Outpatient GC_GCBZW_Ka diyala_S PRIV [facility] [id number] [facility] 2023-02-06 00:00:00 2023-02-06 00:00:00 Telephone Geovani [facility] ANTELMO?[facility] 1.2840.114 350.1.13.10 4.2.7.2.686 [id number] [facility] 2023-02-03 00:00:00 2023-02-03 00:00:00 Orders Only Doctor Unassigned, Eleele [facility] 1.2840.114 350.1.13.10 4.2.7.2.686 [id number] [facility] 2023-02-02 00:00:00 2023-02-02 00:00:00 Telephone Faisal Do [facility] ANTELMO?[facility] 1.2840.114 350.1.13.10 4.2.7.2.686 [id number] [facility] 2023-01-27 00:00:00 2023-01-27 00:00:00 Telephone Stringer [facility] ANTELMO?[facility] 1.840.114 350.1.13.10 4.2.7.2.686 [id number] [facility] 2023-01-27 00:00:00 2023-01-27 00:00:00 Telephone Geovani [facility] ANTELMO?[facility] 1.840.114 350.1.13.10 4.2.7.2.686 [id number] [facility] 2023-01-20 09:30:00 2023-01-20 09:45:00 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 Worker Visit Lab, Tato Stringer [facility] 1.2840.114 350.1.13.10 4.2.7.2.686 [id number] [facility] 2023-01-20 08:30:00 2023-01-20 09:21:40 Outpatient R STRINGER, [facility] [id number] [facility] 2023-01-20 08:30:00 2023-01-20 09:21:40 Office Visit Geovani [facility] ANTELMO?[facility] 1.2.840.114 350.1.13.10 4.2.7.2.686 [id number] [facility] 2023-01-20 00:00:00 2023-01-20 00:00:00 Orders Only Doctor Unassigned, Eleele [facility] 1.2.840.114 350.1.13.10 4.2.7.2.686 [id number] [facility] 2023-01-10 00:00:00 2023-01-10 00:00:00 Refill Geovani [facility] ANTELMO?[facility] 1.2.840.114 350.1.13.10 4.2.7.2.686 [id number] [facility] 2022-10-21 10:00:00 2022-10-21 10:00:00 Outpatient Lissy GEOVANI [facility] [id number] [facility] 2022-09-26 00:00:00 2022-09-26 00:00:00 Outpatient FER[place]ON[place] [id number] [facility] 2022-08-25 00:00:00 2022-08-25 00:00:00 Outpatient FERGUSON_JO HN [facility] [id number] [facility] 2022-07-15 09:00:00 2022-07-15 09:00:00 Outpatient JAMIE GREENE HOWARD [facility] [id number] [facility] 2022-07-01 09:00:00 2022-07-01 09:00:00 Outpatient JAMIE GREENE HOWARD [facility] [id number] [facility] 2022-04-16 10:30:00 2022-04-16 11:54:55 Outpatient R GEOVANI [facility] [id number] [facility] 2022-04-16 10:30:00 2022-04-16 11:54:55 Office Visit [facility] 1.2.840.114 350.1.13.10 4.2.7.2.686 [id number] [facility] 2022-04-16 00:00:00 2022-04-16 00:00:00 Orders Only Doctor Unassigned, Eleele [facility] 1.2.840.114 350.1.13.10 4.2.7.2.686 [id number] [facility] 2022-02-07 00:00:00 2022-02-07 00:00:00 Telephone Geovani [facility] 1.2.840.114 350.1.13.10 4.2.7.2.686 [id number] [facility] 2022-02-07 00:00:00 2022-02-07 00:00:00 Orders Only Doctor Unassigned, Eleele [facility] 1.2.840.114 350.1.13.10 4.2.7.2.686 [id number] [facility] 2021-10-22 10:29:00 2021-10-22 10:29:00 Outpatient CHOCO [facility] [id number] [facility] 2021-04-11 15:30:00 2021-04-11 15:30:00 Outpatient MONICA PIZANO [facility] [id number] [facility] 2021-04-11 14:16:53 2021-04-11 15:16:53 Nurse Visit Therapy, Adc Covid Infusion Monica Leon A [facility] 1.114 350.1.13.10 4.2.7.2.686 [id number] [facility] 2021-04-11 00:00:00 2021-04-11 00:00:00 Orders Only Doctor Unassigned, Eleele [facility] 1.20.114 350.1.13.10 4.2.7.2.686 [id number] [facility] 2020-05-29 09:20:00 2020-05-29 09:20:00 Outpatient JAMIE GREENE HOWARD [facility] [id number] [facility] 2020-05-07 09:20:00 2020-05-07 09:20:00 Outpatient JAMIE GREENE HOWARD [facility] [id number] [facility] 2020-04-24 10:40:00 2020-04-24 10:40:00 Outpatient JAMIE GREENE HOWARD [facility] [id number] [facility] 2020-04-09 00:00:00 2020-04-09 00:00:00 [facility] 1.84.114 350.1.13.10 4.2.7.2.686 [id number] 2020-04-09 00:00:00 2020-04-09 00:00:00 Telephone Jamie Pérez [facility] 1..114 350.1.13.10 4.2.7.2.686 [id number] [facility] 2020-03-02 09:32:12 2020-03-02 12:45:11 Office Visit Jamie Pérez [facility] 1.84.114 350.1.13.10 4.2.7.2.686 [id number] [facility] 2020-03-02 09:40:00 2020-03-02 09:40:00 Outpatient JAMIE GREENE SILVERIOJAMIE [facility] [id number] [facility] 2020-02-27 14:00:00 2020-02-27 14:00:00 Outpatient ERIKA Yuan RAI [facility] [id number] [facility] 2020-02-24 10:00:00 2020-02-24 10:00:00 Outpatient PEMA Yuan RAIHANT [facility] [id number] [facility] 2019-12-20 11:36:00 2019-12-20 11:51:00 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 Worker Visit Pob, Adc Lab Main Jamie [facility] 1.84.114 350.1.13.10 4.2.7.2.686 [id number] [facility] 2019-12-20 09:58:25 2019-12-20 10:38:25 Office Visit Jamie Pérez [facility] Building 1.114 350.1.13.10 4.2.7.2.686 [id number] [facility] 2019-12-20 10:00:00 2019-12-20 10:00:00 Outpatient JAMIE GREENEOCHEJAMIE [facility] [id number] [facility] 2019-12-13 00:00:00 2019-12-13 00:00:00 Telephone Erika Grey [facility] 1.114 350.1.13.10 4.2.7.2.686 [id number] [facility] 2019-10-14 00:00:00 2019-10-14 00:00:00 Orders Only Doctor Unassigned, Eleele [facility] 1.114 350.1.13.10 4.2.7.2.686 [id number] [facility] 2018-12-09 12:44:00 2018-12-09 12:44:00 Outpatient GERARDO ARANDA [facility] [id number] [facility] 2016-08-05 10:40:00 2016-08-05 10:40:00 Outpatient GERARDO ARANDA [facility] [id number] [facility] 2016-07-25 11:33:00 2016-07-25 11:33:00 Outpatient GERARDO ARANDA [facility] [id number] [facility] 2014-10-09 15:42:00 2014-10-11 13:40:00 Inpatient ER GLENROY STEVENSMIE [facility] [id number] [facility] 2014-05-24 12:14:00 2014-05-24 12:14:00 Outpatient GERARDO ARANDA [facility] [id number] [facility] 2014-05-18 09:53:00 2014-05-18 13:01:00 Emergency ER RHEA CRUZ [facility] [id number] [facility] 2014-01-05 13:12:00 2014-01-06 15:05:00 Inpatient ER OLIVIA STEVENS [facility] [id number] [facility] 2013-11-14 09:23:00 2013-11-14 09:23:00 Outpatient COLLETTE SÁNCHEZ [facility] [id number] [facility] 2013-10-14 10:03:00 2013-10-14 10:03:00 Outpatient GERARDO ARANDA [facility] [id number] [facility] 2013-08-31 09:59:00 2013-08-31 09:59:00 Outpatient GERARDO ARANDA [facility] [id number] [facility] 2013-02-21 10:59:00 2013-02-21 10:59:00 Outpatient MARISOL LACEY [facility] [id number] [facility] 2012-08-16 11:40:00 2012-08-21 14:23:00 Inpatient Demarco Chacon [facility] [id number] [facility] 2012-03-11 09:02:00 2012-03-11 09:02:00 Outpatient LITA LACEYRY [facility] [id number] [facility] 2011-07-14 04:51:00 2011-07-14 06:30:00 Emergency ER RHEA CRUZ [facility] [id number] [facility] 2010-11-21 08:15:00 2010-11-21 08:15:00 Outpatient CHOCO JUAN MARISOL [facility] [id number] [facility] 2010-11-01 10:46:00 2010-11-01 14:05:00 Emergency ER RHEA CRUZ [facility] [id number] [facility] 2009-05-25 12:15:00 2009-05-28 12:53:00 Inpatient BRITANY KRAFTBRITTANY [facility] [id number] [facility] 2008-06-27 13:39:00 2008-06-27 13:39:00 Outpatient GERARDO ARANDA [facility] [id number] [facility] 2007-09-09 15:14:00 2007-09-09 17:00:00 Emergency ER GREGORY CLARICE [facility] [id number] [facility] 2007-09-01 09:32:00 2007-09-01 09:32:00 Outpatient TAMMIE CAMILO [facility] [id number] [facility] 2007-08-20 13:59:00 2007-08-22 14:44:00 Inpatient JORDYN BEARD [facility] [id number] [facility] 2006-12-30 10:32:00 2006-12-30 10:32:00 Outpatient TAMMIE CAMILO [facility] [id number] [facility] 2006-09-22 10:45:00 2006-09-22 10:45:00 Outpatient GERARDO ARANDA [facility] [id number] [facility] 2006-06-01 14:23:00 2006-06-01 14:23:00 Outpatient GERARDO ARANDA [facility] [id number] [facility] 2005-07-25 08:00:00 2005-07-25 08:00:00 Outpatient UMM REYNOLDSGENET [facility] [id number] [facility] 2004-12-20 09:06:00 2004-12-20 09:06:00 Outpatient CHOCO COLMENARES AZAEL [facility] [id number] [facility] 2004-11-26 15:46:00 2004-11-26 15:46:00 Outpatient UMM REYNOLDSGENET [facility] [id number] [facility] 2004-09-06 09:51:00 2004-09-06 13:00:00 Emergency ER RHEA CRUZ [facility] [id number] [facility] 2004-04-23 13:17:00 2004-04-23 18:40:00 Emergency ER JENNIFER DIGGS [facility] [id number] [facility] 2004-01-30 20:06:00 2004-01-31 13:50:00 Inpatient ER SUPRIYA MICHEL [facility] [id number] [facility] 2003-09-04 02:05:00 2003-09-05 16:40:00 Inpatient ER KACI PARRISH [facility] [id number] [facility] 2001-02-05 07:00:00 2001-02-05 07:00:00 Outpatient EL LEAH COLUNGA [facility] [id number] [facility] 2001-01-04 00:09:00 2001-01-04 03:30:00 Emergency ER ARIANA DIAZ [facility] [id number] [facility] 2000-12-13 21:04:00 2000-12-19 12:15:00 Inpatient ER AZAEL COLMENARES [facility] [id number] [facility] 1999-12-07 20:32:00 1999-12-07 22:55:00 Emergency ER TAYA BONILLA [facility] [id number] [facility] Results Test Description Test Time Test Comments Results Result Co mments Source [facility] Hemoglobin A1C [id number] 14:37:00* Test Item Value Reference Range Interpretation Comme [facility] POCT HBA1C (test code = 4548-4) 7.7 % 4-6 A Lab Interpretation (test cod e = 54170-8) Abnormal [facility] HEMOGLOBIN A1C [id number] 15:33:00* Test Item Value Reference Range Interpretation Comme [facility] POCT HBA1C (test code = 4548-4) 7.9 % 4-6 A Lab Interpretation (test cod e = 97571-1) Abnormal [facility] HEMOGLOBIN A1C [id number] 15:33:00* Test Item Value Reference Range Interpretation Comme [facility] POCT HBA1C (test code = 4548-4) 7.9 % 4-6 A Lab Interpretation (test cod e = 84373-7) Abnormal [facility] HEMOGLOBIN A1C [id number] 13:48:00* Test Item Value Reference Range Interpretation Comme [facility] POCT HBA1C (test code = 4548-4) 9.1 % 4-6 A Lab Interpretation (test cod e = 18015-5) Abnormal [facility] HEMOGLOBIN A1C [id number] 13:48:00* Test Item Value Reference Range Interpretation Comme nts POCT HBA1C (test code = 4548-4) 9.1 % 4-6 A Lab Interpretation (test cod e = 97625-5) Abnormal [facility] HEMOGLOBIN A1C [id number] 16:04:00* Test Item Value Reference Range Interpretation Comme nts POCT HBA1C (test code = 4548-4) 6.4 % 4-6 A Lab Interpretation (test cod e = 17155-2) Abnormal [facility] HEMOGLOBIN A1C [id number] 16:04:00* Test Item Value Reference Range Interpretation Comme [facility] POCT HBA1C (test code = 4548-4) 6.4 % 4-6 A Lab Interpretation (test cod e = 74484-1) [facility] [id number] 22:17:00* Test Item Value Reference Range Interpretation Comme nts VIT B12 (test code = 3044862585) 589 pg/mL 240-930 WAYLON (test code = WAYLON) Biotin has been reported to cause a positive bias, interpret results relative to patient's use of biotin. Lab Interpretation (test code = 62049-0) [facility], [id number] 22:17:00* Test Item Value Reference Range Interpretation Comme nts VIT B12 (test code = 4058321228) 589 pg/mL 240-930 WAYLON (test code = WAYLON) Biotin has been reported to cause a positive bias, interpret results relative to patient's use of biotin. Lab Interpretation (test code = 92026-2) [facility] 18:50:00* Test Item Value Reference Range Interpretation Comme nts CALCIUM (test code = 9429422313) 10.4 mg/dL 8.6-10.6 Lab Interpretation (test cod e = 67530-4) [facility] 18:50:00* Test Item Value Reference Range Interpretation Comme nts MAGNESIUM (test code = 2465394827) 1.9 mg/dL 1.7-2.4 Lab Interpretation (test cod e = 38585-8) [facility] 18:50:00* Test Item Value Reference Range Interpretation Comme nts CALCIUM (test code = 4392954785) 10.4 mg/dL 8.6-10.6 Lab Interpretation (test cod e = 88848-7) [facility] 18:50:00* Test Item Value Reference Range Interpretation Comme nts MAGNESIUM (test code = 6591554031) 1.9 mg/dL 1.7-2.4 Lab Interpretation (test cod e = 17101-2) [facility] [id number] 18:49:00* Test Item Value Reference Range Interpretation Comme nts CK (test code = 8245644676) 34 U/L 33-194 Lab Interpretation (test cod e = 39171-4) [facility] [id number] 18:49:00* Test Item Value Reference Range Interpretation Comme nts CK (test code = 5497243907) 34 U/L 33-194 Lab Interpretation (test cod e = 01638-7) Normal [facility] Notes Date/Time Note Provider Source 2023-11-30 11:30:00 nPv221qiF5BaAMrpl+gu NW+/cMKSbmDYaoEo+rgFBx xa20ESrIfrASufdFlu3m988162-57-08N20:30:00F ormatting of this note is different from the original.Images from the original note were not included.Venipuncture collection performed by clean technique on the left hand. Total of 3 attempts were made. Slight pressure and a bandage/dressing were applied to the site(s). The patient experienced no complications. The following specimens were processed according to instructions and sent to [facility] laboratories per lab order on 11/30/2023:LT BLUESST 1REDLAV 1PPTDK GREEN (LiHep)DK GREEN (SodH)GRAYDK BLUE (K2)DK BLUE (S)ACDBlood CultureNIPT/NTDPatient has been identified by and name and was provided with cup, antiseptic towelette, and clean catch instructions. 1 urine specimen(s) sent.Unpreserved 1Urine CultureAptima tubeOther urine 73206-0Dyxhc DfbbLK2211-26-21Z73:48:23Nurse NoteTXT1.2.840.225190.1.13.104.2.7.2.73964 9|[id number] for patient ndnp01129-0Emvsu NoteLNNARRATIVEFormatted C-CDA narrative text[address] [id number] IFNSBFXHLRZPHODS9671-61-41N22:48:231.2.840 .905047.1.72.3.15|1.2.840.373529.1.13.104. 2.7.2.727879_[id number] [facility] 2023-10-07 10:14:37 g88e4PPPFv4PAAhUzwS0 SlW0QIjvqN//PvU43RtIl9 X6S/DX6CL19l4q9OOvLX5n5084-52-79E28:14:37F ormatting of this note might be different from the original.BAIRON 07/22/2023NOV 4continue metformin at current dose.Lizzy Valdivia MA 10/07/2023 10:21 AM 79711-2Ybtbvhwai encounter FrpaIP9761-23-21G49:21:55Telephone encounter NoteTXT1.2.840.111114.1.13.104.2.7.2.15159 9|[id number] for patient efot88064-3NxfqVNUJPQPAVHZVgewdzkbo C-CDA narrative text[id number] FSRECZAYJQGQZROT8454-23-54Z40:21:551.2.840 .582332.1.72.3.15|1.2.840.558792.1.13.104. 2.7.2.727879_[id number] [facility]"
[2023-11-30] MEDS ORDERED: MORPHINE 4 MG/ML SYR ONE (11:28)
[2023-11-30] MEDS ORDERED: ONDANSETRON 4 MG/2 ML VIAL ONE (11:56)
[2023-11-30 12:07] LABS: Absolute Basophils 0.1 K/uL (0-0.5); Absolute Eosinophils 0.1 K/uL (0-0.5); Absolute Lymphocytes (CBC) 2.7 K/uL (0.7-4.9); Absolute Monocytes 0.5 K/uL (0.1-1.3); Basophils % 0.8 % (0-1.3); Hematocrit 38.9 % (36.0-45.0); Hemoglobin 12.4 g/dL (12.0-15.0); Lymphocytes % 31.8 % (15.3-44.8); MCH 26.3 pg (27.0-35.0); MCHC 31.8 g/dL (32.0-36.0); MCV 82.8 fL (80-100); MPV 8.3 fL (7.6-11.3); Monocytes % 6.6 % (3.3-12.3); Neutrophils % 59.8 % (41.7-73.7); Nucleated Red Blood Cells % 0.1 % (0-0); Platelets 365 thou/uL (152-406); Red Cell Distribution Width 15.4 % (12.1-15.2)
--- NOTE | 2023-11-30 12:13 | RAD REPORT ---
EXAM DESCRIPTION: Mirella Single View11/30/2023 11:42 am CLINICAL HISTORY: Chest pain COMPARISON: 2021 FINDINGS: The lungs appear clear of acute infiltrate. The heart is normal size. Neurostimulator dev ice in place IMPRESSION: No acute abnormalities displayed
[2023-11-30 12:21] LABS: Anion Gap 9.1 mEq/L (5.0-15.0); Potassium 4.1 mEq/L (3.5-5.1); Troponin High Sensitivity 3.1 pg/mL (<58.9)
--- NOTE | 2023-11-30 12:34 | ER ---
Nurse's Notes [facility] Name: Tina Elizalde Age: 68 yrs Sex: Female : 1955 Arrival Date: 11/30/2023 Time: 11:06 Bed 3 Private MD: Diagnosis: Chest pain, unspecified Presentation: 11/29 11:12 Chief complaint: Patient states: CP that radiates into back and L arm for 2 days. ll1 Coronavirus screen: Client denies travel out of the [place] in the last 14 days. At this time, the client does not indicate any symptoms associated with coronavirus-19. Ebola Screen: Patient denies travel to an Ebola-affected area in the 21 days before illness onset. Initial Sepsis Screen: Does the patient meet any 2 criteria? No. Patient's initial sepsis screen is negative. Does the patient have a suspected source of infection? No. Patient's initial sepsis screen is negative. Risk Assessment: Do you want to hurt yourself or someone else? Patient reports no desire to harm self or others. Onset of symptoms was November 29, 2023. 11:12 Method Of Arrival: Wheelchair ll1 11:12 Acuity: ALETHEA 3 ll1 Triage Assessment: 11:13 General: Appears uncomfortable, Behavior is calm, cooperative, appropriate for age. ll1 Pain: Complains of pain in chest Pain radiates to back and left arm. Cardiovascular: Reports chest pain. Historical: - Allergies: 11:12 Bactrim; ll1 11:12 Iodine and Iodide Containing Products; ll1 11:12 Solu-Medrol; ll1 11:12 TETRACYCLINES; ll1 - PMHx: 11:12 Diabetes - IDDM; heart problems; Hypertension; Pancreatitis; ll1 - Immunization history:: Adult Immunizations up to date. - Infectious Disease History:: Denies. - Social history:: Smoking status: Patient denies any tobacco usage or history of. Screenin:33 [facility] ED Fall Risk Assessment (Adult) History of falling in the last 3 months, ld1 including since admission No falls in past 3 months (0 pts). Abuse screen: Denies threats or abuse. Denies injuries from another. Nutritional screening: No deficits noted. Tuberculosis screening: No symptoms or risk factors identified. Assessment: 11:15 Reassessment: Patient and/or family updated on plan of care and expected duration. Pain rs5 level reassessed. Patient is alert, oriented x 3, equal unlabored respirations, skin warm/dry/pink. 12:33 General: Appears in no apparent distress. comfortable, Behavior is calm, cooperative, ld1 appropriate for age. Pain: Complains of pain in back, chest and abdomen Pain does not radiate. Pain currently is 8 out of 10 on a pain scale. Quality of pain is described as throbbing, Pain began gradually, Is continuous. Neuro: Level of Consciousness is awake, alert, obeys commands, Oriented to person, place, time, situation. Cardiovascular: Capillary refill < 3 seconds Patient's skin is warm and dry. Respiratory: Airway is patent Respiratory effort is even, unlabored. GI: Abdomen is flat, non-distended. : No signs and/or symptoms were reported regarding the genitourinary system. Vital Signs: 11:12 BP 132 / 66; Pulse 77; Resp 15; Temp 97.8; Pulse Ox 97% on R/A; Weight 60.78 kg; Height ll1 5 ft. 1 in. ; Pain 10/10; 12:32 BP 138 / 55; Pulse 72; Resp 18; Pulse Ox 97% on R/A; ld1 11:12 Body Mass Index 25.32 (60.78 kg, 154.94 cm) ll1 11:12 Pain Scale: Adult ll1 ED Course: 11:07 Patient arrived in ED. im 11:07 Hector Cote MD is Attending Physician. ec2 11:12 Arm band placed on Patient placed in an exam room, on a stretcher. ll1 11:13 Triage completed. ll1 11:44 XRAY Chest (1 view) In Process Unspecified. EDMS 11:50 Inserted saline lock: 20 gauge in left upper arm, using aseptic technique. Blood nj1 collected. Ultrasound guided. Catheter tip well visualized within vasculature during placement. 12:01 Christiano Chang, EDUARDO is Primary Nurse. rs5 12:33 Patient has correct armband on for positive identification. Placed in gown. Bed in low ld1 position. Call light in reach. Side rails up X2. Pulse ox on. NIBP on. Door closed. Noise minimized. Warm blanket given. 12:33 No provider procedures requiring assistance completed. Oxygen administration via nasal ld1 cannula. 12:47 IV discontinued, intact, bleeding controlled, No redness/swelling at site. ld1 Administered Medications: 11:50 Drug: morphine IVP or IV 4 mg IVP once over 4 mins Route: IVP; Infused Over: 4 mins; rs5 Site: left antecubital; 12:05 Follow up: Response: No adverse reaction rs5 12:02 Drug: Ondansetron IVP 4 mg IVP once; over 2 minutes Route: IVP; Site: left antecubital; rs5 12:05 Follow up: Response: No adverse reaction rs5 Medication: 12:47 VIS not applicable for this client. ld1 Outcome: 12:33 Discharge ordered by . ec2 12:47 Discharged to home via wheelchair, with family, ld1 12:47 Condition: stable 12:47 Discharge instructions given to patient, family, Instructed on discharge instructions, follow up and referral plans. Demonstrated understanding of instructions, follow-up care, 12:47 Patient left the ED. ld1 Signatures: Dispatcher [employer] Davi Chester RN RN ll1 Shirin Schmid RN RN ld1 Christiano Chang RN RN rs5 Lila Maher RN RN nj1 Kristin Bowens Edwin, MD MD ec2
--- NOTE | 2023-11-30 12:34 | EDPHYS ---
Physician Documentation [facility] Name: Tina Elizalde Age: 68 yrs Sex: Female : 1955 Arrival Date: 11/30/2023 Time: 11:06 Bed 3 Private MD: ED Physician Hector Cote HPI: 11/29 11:16 This 68 yrs old Female presents to ER via Wheelchair with complaints of Chest ec2 Pain, Back Pain. 11:16 Patient arrives today for evaluation of left-sided chest pain. Patient reports she been ec2 having constant pain since yesterday. Patient reports that the pain is worse with movement in the area. Patient reports no difficulty breathing, states that she is also having back pain. Has been seen for this in the past, was told that she has a strained muscle. 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 Patient reports otherwise no new concerns. She reports that she has also been prescribed muscle relaxer which improved her pain prior to arrival.. Historical: - Allergies: 11:12 Bactrim; ll1 11:12 Iodine and Iodide Containing Products; ll1 11:12 Solu-Medrol; ll1 11:12 TETRACYCLINES; ll1 - PMHx: 11:12 Diabetes - IDDM; heart problems; Hypertension; Pancreatitis; ll1 - Immunization history:: Adult Immunizations up to date. - Infectious Disease History:: Denies. - Social history:: Smoking status: Patient denies any tobacco usage or history of. ROS: 11:16 Constitutional: as per hpi ec2 Exam: 11:16 Constitutional: GEN: NAD Head: atraumatic Eyes: EOMI Ears: External ears are ec2 normal. CV: regular rate LUNGS: no respiratory distress ABD: non-distended SKIN: no evidence of rashes MSK: no evidence of trauma, reproducible chest wall TTP, no deformities or crepitus. NEURO: moves all extremities equally Vital Signs: 11:12 BP 132 / 66; Pulse 77; Resp 15; Temp 97.8; Pulse Ox 97% on R/A; Weight 60.78 kg; Height ll1 5 ft. 1 in. ; Pain 10/10; 12:32 BP 138 / 55; Pulse 72; Resp 18; Pulse Ox 97% on R/A; ld1 11:12 Body Mass Index 25.32 (60.78 kg, 154.94 cm) ll1 11:12 Pain Scale: Adult ll1 MDM: 11:16 Data reviewed: vital signs. ED course: Patient arrives today for fevers or chest pain. ec2 Examination remarkable for reproducible chest wall TTP with no deformities or crepitus. Will obtain lab work, EKG, chest x-ray and give the patient morphine for pain control. Considering ACS, doubt PE or dissection additionally considering costochondritis.. 11:17 Patient medically screened. ec2 11:24 ED course: EKG independently reviewed and interpreted by me, shows normal sinus rhythm, ec2 rate of 74, no acute ST segment elevations, nonconcerning intervals.. 12:15 ED course: CBC is reassuring. Chest x-ray shows no acute intrathoracic process. . ec2 12:24 ED course: Lab work including metabolic profile and troponin are within normal ranges. ec2 Given the duration of symptoms ongoing for 1 day, will defer repeat troponin. Suspect muscle skeletal pain causing her symptoms and will have her follow-up primary care doctor. Return precautions given.. 11/29 11:08 Order name: Basic Metabolic Panel; Complete Time: 12:24 ec2 11/29 11:08 Order name: CBC with Diff; Complete Time: 12:15 ec2 11/29 11:08 Order name: NT PRO-BNP; Complete Time: 12:24 ec2 11/29 11:08 Order name: Troponin HS; Complete Time: 12:24 ec2 11/29 11:08 Order name: XRAY Chest (1 view); Complete Time: 12:15 ec2 11/29 11:08 Order name: EKG; Complete Time: 11:08 ec2 11/29 11:08 Order name: Cardiac monitoring; Complete Time: 11:26 ec2 11/29 11:08 Order name: EKG - Nurse/Tech; Complete Time: 11:26 ec2 11/29 11:08 Order name: IV Saline Lock; Complete Time: 12:25 ec2 11/29 11:08 Order name: Labs collected and sent; Complete Time: 12:25 ec2 11/29 11:08 Order name: O2 Per Protocol; Complete Time: 11:13 ec2 11/29 11:08 Order name: O2 Sat Monitoring; Complete Time: 11:13 ec2 Administered Medications: 11:50 Drug: morphine IVP or IV 4 mg IVP once over 4 mins Route: IVP; Infused Over: 4 mins; rs5 Site: left antecubital; 12:05 Follow up: Response: No adverse reaction rs5 12:02 Drug: Ondansetron IVP 4 mg IVP once; over 2 minutes Route: IVP; Site: left antecubital; rs5 12:05 Follow up: Response: No adverse reaction rs5 Disposition Summary: 11/30/23 12:33 Discharge Ordered Notes: Location: Home ec2 Problem: an ongoing problem ec2 Symptoms: have improved ec2 Condition: Stable ec2 Diagnosis - Chest pain, unspecified ec2 Followup: ec2 - With: Private Physician - When: - Reason: Re-evaluation by your physician Discharge Instructions: - Discharge Summary Sheet ec2 - Costochondritis, Usvw-xr-Dmzu ec2 Forms: - Medication Reconciliation Form ec2 - Thank You Letter ec2 - Antibiotic Education ec2 - Prescription Opioid Use ec2 - Patient Portal Instructions ec2 - Leadership Thank You Letter ec2 Signatures: Dispatcher [employer] Davi Chester RN RN ll1 Shirin Schmid RN RN ld1 Christiano Chang RN RN rs5 Hector Cote MD MD ec2 Corrections: (The following items were deleted from the chart) 11:17 11:16 Patient arrives today for evaluation of left-sided chest pain. Patient reports ec2 she been having constant pain since yesterday. Patient reports that the pain is worse with movement in the area. Patient reports no difficulty breathing, states that she is also having back pain. Has been seen for this in the past, was told that she has a strained muscle. 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 Patient reports otherwise no new concerns.. ec2
[2023-11-30 14:02] VITALS: BP 138/55; TEMP 97.8; O2SAT 97
== END 2023-11-30 12:47 | disposition home or self-care (01) ==
LOC: ER 11:06
DX: R07.9 Chest pain, unspecified (principal); I10 Essential (primary) hypertension; E11.9 Type 2 diabetes mellitus without complications; Z88.1 Allergy status to other antibiotic agents; Z88.8 Allergy status to other drugs, medicaments and biological substances; Z91.048 Other nonmedicinal substance allergy status
CPT/HCPCS: 93005; 85025; 80048; 36415; 84484; 83880; 71045; 96375; 96374; 99285; J2405

== ENCOUNTER 2024-02-19 16:26 | Emergency (ER) | payer OTHER ==
--- OUTSIDE RECORDS SUMMARY | 2024-02-19 16:31 | XMS REPORT | Continuity of Care Document ---
Author Name Unknown Address [address] [facility] [address] [place] [address] [facility] thconnect Address [address] [facility] [address] [place] [address] Care Team Providers Care Paraplanner Name Role Phone Wilfrido Miller Primary Care Physician SHERRI LOPEZ Attending Clinician Unavailable GERARDO KAT Attending Clinician Unavailable MOE WILLIAMSON Attending Clinician Unavailable MOE WILLIAMSON Attending Clinician Unavailable Sherri Lopez MD Attending Clinician Jamie Pérez MD Attending Clinician JAMIE PÉREZ Attending Clinician Unavail able JAMIE PÉREZ Attending Clinician Unavail able Lab, Ang - Db Attending Clinician Unavailable ATILIO, NAFEESA Attending Clinician Unavailable Renee Olivo MD Attending Clinician [phone] FAISAL, LEI Attending Clinician Unavailable FAISALDO Vázquez Attending Clinician Unavailable [email or web address]_S Attending Clinician Unavaila ble Doctor Unassigned, [place] Attending Clinician U RENEE Camarena Attending Clinician Unavailable SANYA Attending Clinician Unavailable MONICA LEON Attending Clinician Unavailable Therapy, [facility] Attending Clinician Unavailable Monica Leon MD Attending Clinician [phone] ERIKA GREY Attending Clinician Unavaila pepito Pob, [facility] Attending Clinician UnavailErika chavez Rai, MD Attending Clinician [phone] OLIVIA STEVENS Attending Clinician Unavailable RHEA CRUZ Attending Clinician Unavailab le OTHER, ENTER NAME IN NOTES Attending Clinician U MARISOL Aviles Attending Clinician Unavailable Demarco Carter Attending Clinician Unavailable MIREYA WEAVER Attending Clinician Unavail able CLARICE JENKINS Attending Clinician Unavailable TAMMIE LOPEZ Attending Clinician UnavailJORDYN Fan Attending Clinician Unavailab AZAEL Shelton Attending Clinician Unavailable JENNIFER DIGGS Attending Clinician Unavailable SUPRIYA MICHEL Attending Clinician Unavailable KACI PARRISH Attending Clinician Unavailable LEAH COLUNGA Attending Clinician Unavailable ARIANA DIAZ Attending Clinician Unavail able TAYA BONILLA Attending Clinician Unavailab TRINI Chapman Admitting Clinician Unavailable [email or web address]_S Admitting Clinician Unavaila pepito SEGUNDO Admitting Clinician Unavailable OLIVIA STEVENS Admitting Clinician Unavailable Demarco Carter Admitting Clinician Unavailable MIREYA WEAVER Admitting Clinician Unavail able JORDYN SAMPSON Admitting Clinician Unavailab SUPRIYA Jean Admitting Clinician Unavailable JOE CHI Admitting Clinician Unavailable AZAEL COLMENARES Admitting Clinician Unavailable Payers Payer Name Policy Type Policy Number Effective Date Expirati on Date Source MEDICARE PART A \\T\\ B [id number] 2005 00:00:00 [place] [id number] 2018 00:00:00 Problems Condition Name Condition Details Condition Category Status Onset Date Resolution Date Last Treatment Date Treating Clinician Comments Source Swollen abdomen Swollen Abdomen Problem Active 02-06 00:00: 00 [facility] Pelvic mass Pelvic Mass Problem Active 02-06 00:00: 00 [facility] Pelvic swelling Pelvic Swelling Problem Active 02-06 00:00: 00 [facility] Mass of abdominal cavity structure Mass of Abdominal Cavity Structure Problem Active 02-06 00:00: 00 [facility] Pelvic and perineal pain Pelvic and Perineal Pain Problem Active 02-06 00:00: 00 [facility] Subacute and chronic vaginitis Subacute and Chronic Vaginitis Problem Active 02-06 00:00: 00 [facility] No known active problems No known active problems Disease [facility] Allergies, Adverse Reactions, Alerts Allergy Name Allergy Type Status Severity Reaction(s) Onset Date Inactive Date Treating Clinician Comments Source Solu-Med rol Mix-O-Vi al Propensi ty to adverse reaction s Active Palpitations 04-11 00:00: 00 [facility] Tetracyc line Propensi ty to adverse reaction s Active Unknown - See comments 04-11 00:00: 00 Gets pancreati tis [facility] DECONGES T DRUG Active Palpitations 8 00:00: 00 [facility] ETODOLAC DRUG INGREDI Active Swelling 8 00:00: 00 [facility] SOLU-MED ROL MIX-O- AL DRUG Active Palpitations 8 00:00: 00 [facility] TETRACYC LINE DRUG INGREDI Active Unknown-Cmnt 8 00:00: 00 [facility] Deconges t Propensi ty to adverse reaction s Active Palpitations 0 8 00:00: 00 [facility] Etodolac Propensi ty to adverse reaction s Active Swelling 04-11 00:00: 00 [facility] Solu-med rol (Pf) Allergy to substanc e Active [facility] Tetracyc line Allergy to substanc e Active [facility] NO KNOWN ALLERGIE S Drug Class Active [facility] Bactrim Ds Allergy to substanc e Active [facility] Epinephr ine Allergy to substanc e Active [facility] IODINE Allergy to substanc e Active Hives [facility] Piroxica m Allergy to substanc e Active [facility] Social History Social Habit Start Date Stop Date Quantity Comments Source [facility] Tobacco use and exposure 2023-12-11 00:00:00 2023-12-11 00:00:00 Smokeless tobacco non-user [facility] History of Social function 2023-07-22 00:00:00 2023-07-22 00:00:00 [facility] Exposure to SARS-CoV-2 (event) 2022-04-06 00:00:00 2022-04-16 10:38:00 Not sure [facility] Sex assigned at 1955 00:00:00 1955 00:00:00 [facility] Smoking Status Start Date Stop Date Source Never smoked tobacco [facility] Tobacco smoking consumption unknown [facility] Medications Ordered Medication Name Filled Medication Name Start Date Stop Date Current Medication? Ordering Clinician Indication Dosage Frequency Signature (SIG) Comments Components Source Blood-Gluco se Meter (ACCU-CHEK GUIDE GLUCOSE METER) [facility] 02-08 00:00: 00 Yes [id number] Use as directed [facility] lancets 33 gauge [facility] 02-08 00:00: 00 Yes [id number] Use as directed [facility] blood sugar diagnostic (ACCU-CHEK GUIDE TEST STRIPS) strip 02-08 00:00: 00 Yes [id number] Use as directed [facility] empaglifloz in (JARDIANCE) 25 mg Tab tablet 4-15 00:00: 00 Yes [id number] 25mg Take 1 tablet by mouth in the morning. [facility] empaglifloz in (JARDIANCE) 10 mg 2022-08 00:00: 00 07-22 00:00 :00 No [id number] 10mg TAKE 1 TABLET BY MOUTH IN THE MORNING [facility] pantoprazol e 40 mg EC tablet 01-20 08:51: 48 Yes 40mg Take 1 tablet by mouth in the morning and 1 tablet in the evening. [facility] empaglifloz in 10 mg 01-20 00:00: 00 07-06 00:00 :00 No [id number] 10mg Take 1 tablet by mouth in the morning. [facility] pantoprazol e 40 mg EC tablet 04-16 10:58: 15 Yes 40mg Take 40 mg by mouth 2 (two) times daily. [facility] diphenhydrA MINE 50 mg capsule 04-16 10:58: 15 Yes 50mg Take 50 mg by mouth at bedtime. [facility] pantoprazol e 40 mg EC tablet 03-02 14:51: 48 12-10 00:00 :00 No 40mg Take 1 tablet by mouth in the morning and 1 tablet in the evening. [facility] diphenhydrA MINE 50 mg capsule 03-02 14:51: 48 12-10 00:00 :00 No 50mg Take 1 capsule by mouth at bedtime. [facility] pantoprazol e 40 mg EC tablet 03-02 09:51: 48 Yes 40mg Take 40 mg by mouth 2 (two) times daily. [facility] diphenhydrA MINE 50 mg capsule 03-02 09:51: 48 Yes 50mg Take 50 mg by mouth at bedtime. [facility] famotidine 40 mg tablet 22 00:00: 00 Yes 40mg Take 1 tablet by mouth in the morning and 1 tablet in the evening. [facility] cetirizine 10 mg tablet 3-13 00:00: 00 Yes 10mg Take 1 tablet by mouth. [facility] metFORMIN 500 mg tablet 2018-08 00:00: 00 04-16 00:00 :00 No 500mg Take 500 mg by mouth 2 (two) times daily. [facility] buspirone 5 mg tablet TAKE 1 TABLET BY MOUTH EVERY MORNING AND 1 TABLET BY MOUTH EVERY EVENING buspirone 5 mg tablet TAKE 1 TABLET BY MOUTH EVERY MORNING AND 1 TABLET BY MOUTH EVERY EVENING No buspirone 5 mg tablet TAKE 1 TABLET BY MOUTH EVERY MORNING AND 1 TABLET BY MOUTH EVERY EVENING [facility] cetirizine 10 mg capsule Take by oral route. cetirizine 10 mg capsule Take by oral route. No cetirizine 10 mg capsule Take by oral route. [facility] cyclobenzap rine 10 mg tablet-TENS unit-TENS unit electrode pads cyclobenzap rine 10 mg tablet-TENS unit-TENS unit electrode pads No cyclobenza bridget 10 mg tablet-TEN S unit-TENS unit electrode pads [facility] Diflucan 150 mg tablet Take 1 tablet every 72 hours by oral route for 3 days. Diflucan 150 mg tablet Take 1 tablet every 72 hours by oral route for 3 days. No 1 Diflucan 150 mg tablet Take 1 tablet every 72 hours by oral route for 3 days. [facility] escitalopra m 20 mg tablet escitalopra m 20 mg tablet No escitalopr am 20 mg tablet [facility] famotidine 20 mg tablet TAKE 2 TABLETS BY MOUTH DAILY famotidine 20 mg tablet TAKE 2 TABLETS BY MOUTH DAILY No famotidine 20 mg tablet TAKE 2 TABLETS BY MOUTH DAILY [facility] Jardiance 25 mg tablet TAKE 1 TABLET BY MOUTH IN THE MORNING Jardiance 25 mg tablet TAKE 1 TABLET BY MOUTH IN THE MORNING No Jardiance 25 mg tablet TAKE 1 TABLET BY MOUTH IN THE MORNING [facility] metformin ER 750 mg tablet,exte nded release 24 hr TAKE 1 TABLET BY MOUTH IN THE MORNING AND IN THE EVENING metformin ER 750 mg tablet,exte nded release 24 hr TAKE 1 TABLET BY MOUTH IN THE MORNING AND IN THE EVENING No metformin ER 750 mg tablet,ext ended release 24 hr TAKE 1 TABLET BY MOUTH IN THE MORNING AND IN THE EVENING [facility] metoprolol succinate ER 25 mg tablet,exte nded release 24 hr TAKE 1 TABLET BY MOUTH EVERY DAY metoprolol succinate ER 25 mg tablet,exte nded release 24 hr TAKE 1 TABLET BY MOUTH EVERY DAY No metoprolol succinate ER 25 mg tablet,ext ended release 24 hr TAKE 1 TABLET BY MOUTH EVERY DAY [facility] nystatin 100,000 unit/gram topical cream APPLY TO THE AFFECTED AREA(S) BY TOPICAL ROUTE 2 TIMES PER DAY nystatin 100,000 unit/gram topical cream APPLY TO THE AFFECTED AREA(S) BY TOPICAL ROUTE 2 TIMES PER DAY No nystatin 100,000 unit/gram topical cream APPLY TO THE AFFECTED AREA(S) BY TOPICAL ROUTE 2 TIMES PER DAY [facility] omeprazole 40 mg capsule,del ayed release TAKE 1 CAPSULE BY MOUTH IN THE MORNING omeprazole 40 mg capsule,del ayed release TAKE 1 CAPSULE BY MOUTH IN THE MORNING No omeprazole 40 mg capsule,de layed release TAKE 1 CAPSULE BY MOUTH IN THE MORNING [facility] pravastatin 40 mg tablet TAKE 1 TABLET BY MOUTH EVERY DAY pravastatin 40 mg tablet TAKE 1 TABLET BY MOUTH EVERY DAY No pravastati n 40 mg tablet TAKE 1 TABLET BY MOUTH EVERY DAY [facility] ranolazine ER 500 mg tablet,exte nded release,12 hr TAKE 1 TABLET BY MOUTH TWICE DAILY ranolazine ER 500 mg tablet,exte nded release,12 hr TAKE 1 TABLET BY MOUTH TWICE DAILY No ranolazine ER 500 mg tablet,ext ended release,12 hr TAKE 1 TABLET BY MOUTH TWICE DAILY [facility] Vital Signs Vital Name Observation Time Observation Value Comments S ource Body Weight 2024-02-08 00:00:00 134.4 [lb_av] [facility] BP Systolic 2024-02-08 00:00:00 122 mm[Hg] [facility] BP Diastolic 2024-02-08 00:00:00 59 mm[Hg] [facility] Systolic blood pressure 2023-12-11 13:06:00 132 mm[Hg] [place] [facility] Diastolic blood pressure 2023-12-11 13:06:00 65 mm[Hg] [facility] Heart rate 2023-12-11 13:06:00 83 /min [facility] Respiratory rate 2023-12-11 13:06:00 18 /min [facility] Body height 2023-12-11 13:06:00 154.9 cm [facility] Body weight 2023-12-11 13:06:00 59.693 kg [facility] BMI 2023-12-11 13:06:00 24.87 kg/m2 [facility] Systolic blood pressure 2023-11-30 14:35:00 129 mm[Hg] [facility] Diastolic blood pressure 2023-11-30 14:35:00 81 mm[Hg] [facility] Heart rate 2023-11-30 14:35:00 81 /min [facility] Body height 2023-11-30 14:35:00 154.9 cm [facility] Body weight 2023-11-30 14:35:00 61.054 kg [facility] BMI 2023-11-30 14:35:00 25.43 kg/m2 [facility] Oxygen saturation in Arterial blood by Pulse oximetry 2023-11-30 14:35:00 98 /min [facility] Systolic blood pressure 2023-07-22 15:21:00 139 mm[Hg] [facility] Diastolic blood pressure 2023-07-22 15:21:00 63 mm[Hg] [facility] Heart rate 2023-07-22 15:21:00 85 /min [facility] Body height 2023-07-22 15:21:00 154.9 cm [facility] Body weight 2023-07-22 15:21:00 60.51 kg [facility] BMI 2023-07-22 15:21:00 25.21 kg/m2 [facility] saturation in Arterial blood by Pulse oximetry 2023-07-22 15:21:00 97 /min [facility] Systolic blood pressure 2023-01-20 13:38:00 153 mm[Hg] [facility] Diastolic blood pressure 2023-01-20 13:38:00 78 mm[Hg] [facility] Heart rate 2023-01-20 13:38:00 80 /min [facility] Body height 2023-01-20 13:38:00 154.9 cm [facility] Body weight 2023-01-20 13:38:00 64.819 kg [facility] BMI 2023-01-20 13:38:00 27.00 kg/m2 [facility] Systolic blood pressure 2022-04-16 16:03:00 144 mm[Hg] [facility] Diastolic blood pressure 2022-04-16 16:03:00 77 mm[Hg] [facility] Heart rate 2022-04-16 16:02:00 65 /min Un[facility] Body height 2022-04-16 16:02:00 154.9 cm [facility] Body weight 2022-04-16 16:02:00 61.1 kg [facility] BMI 2022-04-16 16:02:00 25.45 kg/m2 [facility] Oxygen saturation in Arterial blood by Pulse oximetry 2022-04-16 16:02:00 96 /min [facility] Systolic blood pressure 2021-04-11 22:12:00 144 mm[Hg] [facility] Diastolic blood pressure 2021-04-11 22:12:00 54 mm[Hg] [facility] Heart rate 2021-04-11 22:12:00 95 /[facility] Body temperature 2021-04-11 22:12:00 36.28 Sammie [facility] Respiratory rate 2021-04-11 22:12:00 20 /min [facility] Oxygen saturation in Arterial blood by Pulse oximetry 2021-04-11 22:12:00 97 /min [facility] Body height 2021-04-11 20:49:00 154.9 cm [facility] Body weight 2021-04-11 20:49:00 67.132 kg [facility] BMI 2021-04-11 20:49:00 27.96 kg/m2 [facility] BMI 2020-03-02 14:51:00 27.85 kg/m2 [facility] Oxygen saturation in Arterial blood by Pulse oximetry 2020-03-02 14:51:00 97 /min [facility] Systolic blood pressure 2020-03-02 14:51:00 125 mm[Hg] [facility] Diastolic blood pressure 2020-03-02 14:51:00 64 mm[Hg] [place] [facility] Heart rate 2020-03-02 14:51:00 84 /min Un[facility] Respiratory rate 2020-03-02 14:51:00 18 /min [facility] Body height 2020-03-02 14:51:00 154.9 cm [facility] Body weight 2020-03-02 14:51:00 66.86 kg [facility] Systolic blood pressure 2019-12-20 15:11:00 131 mm[Hg] [place] [facility] Diastolic blood pressure 2019-12-20 15:11:00 65 mm[Hg] [place] [facility] Heart rate 2019-12-20 15:11:00 78 /min [facility] Body temperature 2019-12-20 15:11:00 36.61 Sammie [facility] Respiratory rate 2019-12-20 15:11:00 16 /min [facility] Body height 2019-12-20 15:11:00 154.9 cm [facility] Body weight 2019-12-20 15:11:00 65.091 kg [facility] BMI 2019-12-20 15:11:00 27.11 kg/m2 [facility] Procedures Procedure Date / Time Performed Performing Clinician Source XR SPINE THORACIC 3 VW 2023-12-11 14:28:01 Grady Pérez [facility] POCT HEMOGLOBIN A1C TEST 2023-11-30 14:37:00 Juan Jose Lopez [facility] POCT HEMOGLOBIN A1C TEST 2023-07-22 15:32:00 Do Malone [facility] DME/SUPPLY JUSTIFICATION 2023-02-03 05:01:00 Erick huerta Unassigned, [place] [facility] POCT HEMOGLOBIN A1C TEST 2023-01-20 13:48:00 Estiven Olivo [facility] PATIENT FINANCIAL POLICY 2023-01-20 13:25:25 Doctor Unassigned, [place] [facility] POCT HEMOGLOBIN A1C TEST 2022-04-16 16:04:00 Estiven Olivo [facility] ASSIGNMENT OF BENEFITS 2022-04-16 15:38:44 Docto r Unassigned, [place] [facility] REFERRAL- REQUEST/RESPONSE 2022-02-07 05:01:00 Doctor Unassigned, [place] [facility] CONSENT/REFUSAL FOR DIAGNOSIS AND TREATMENT 2021-04-11 05:01:00 Doctor Unassigned, [place] [facility] CALCIUM 2019-12-20 16:20:00 Jamie Pérez [facility] CREATINE KINASE 2019-12-20 16:20:00 Jamie Pérez ne [facility] MAGNESIUM 2019-12-20 16:20:00 Jamie Pérez [facility] VITAMIN B12, LEVEL 2019-12-20 16:20:00 Jamie Pérez [facility] REFERRAL- REQUEST/RESPONSE 2019-10-14 06:01:00 Doctor Unassigned, [place] [facility] Encounters Start Date/Time End Date/Time Encounter Type Admission Type Attending [facility] Care Facility Care Department Encounter ID Source 2024-02-17 11:08:00 2024-02-17 11:08:00 Outpatient [facility] [id number] [facility] 2024-02-10 09:30:00 2024-02-10 09:30:00 Outpatient [place] [id number] [facility] 2024-02-06 00:00:00 2024-02-09 14:54:04 Telephone Sherri Lopez [facility] [id number] [id number] [id number] [facility] 2024-02-08 00:00:00 2024-02-08 00:00:00 ALEJANDRA Thakur: [address], [facility] [address], [place] [address] , Ph. Count includes the [facility] - [email or web address]_La lisa Edwards* [id number] [facility] 2023-12-02 00:00:00 2024-01-02 18:04:39 Patient Secure Msg Sherri Lopez [facility] [id number] 350.1.13.10 4.2.7.2.686 [id number] [facility] 2023-12-11 09:12:47 2023-12-11 23:59:00 Hospital Encounter [facility] 1.114 350.1.13.10 4.2.7.2.686 [id number] [facility] 2023-12-11 08:20:00 2023-12-11 11:50:39 Outpatient Lissy SILVERIO [place] [id number] [facility] 2023-12-11 08:20:00 2023-12-11 11:50:39 [facility] 1.114 350.1.13.10 4.2.7.2.686 [id number] [facility] 2023-12-11 00:00:00 2023-12-11 00:00:00 Telephone Jamie Pérez [facility] 1.84.114 350.1.13.10 4.2.7.2.686 [id number] [facility] 2023-12-02 10:10:00 2023-12-02 10:10:00 Outpatient DANELLE GERARDO KAT [facility] [id number] [facility] 2023-11-30 11:30:00 2023-11-30 11:45:00 Flare Man Visit Lab, Sherri Victor [facility] 1.84.114 350.1.13.10 4.2.7.2.686 [id number] [facility] 2023-11-30 11:30:00 2023-11-30 11:30:00 Outpatient R SHERRI LOPEZ [place] [id number] [facility] 2023-11-30 10:00:00 2023-11-30 10:28:54 Office Visit Sher[facility]as[facility] [id number] 350.1.13.10 4.2.7.2.686 [id number] [facility] 2023-11-18 23:29:00 2023-11-19 19:15:[address] [facility] [id number] [facility] [id number] 2023-11-18 23:29:00 2023-11-19 19:15:00 Inpatient ER ATILIO LENAROSMERY [facility] MED [id number] [facility] 2023-10-06 00:00:00 2023-10-06 00:00:00 Refill [facility]ani [facility] [id number] 350.1.13.10 4.2.7.2.686 [id number] [facility] 2023-07-22 09:30:00 2023-07-22 09:58:24 Outpatient R DO MALONE YU [place] [id number] [facility] 2023-07-22 09:30:00 2023-07-22 09:58:24 Office Visit Do Malone [facility] [id number] 350.1.13.10 4.2.7.2.686 [id number] [facility] 2023-07-06 00:00:00 2023-07-06 00:00:00 Telephone Geovani [facility] [id number] 350.1.13.10 4.2.7.2.686 [id number] [facility] 2023-06-13 00:00:00 2023-06-13 00:00:00 Outpatient GC_GCBZW_Ka diyala_S [facility] [id number] [facility] 2023-02-06 00:00:00 2023-02-06 00:00:00 Telephone Olivo [facility] [id number] 350.1.13.10 4.2.7.2.686 [id number] [facility] 2023-02-03 00:00:00 2023-02-03 00:00:00 Orders Only Doctor Unassigned, [place] [facility] [id number] 350.1.13.10 4.2.7.2.686 [id number] [facility] 2023-02-02 00:00:00 2023-02-02 00:00:00 Telephone Do Malone [facility] [id number] 350.1.13.10 4.2.7.2.686 [id number] [facility] 2023-01-27 00:00:00 2023-01-27 00:00:00 [facility] 1.2840.114 350.1.13.10 4.2.7.2.686 [id number] [facility] 2023-01-27 00:00:00 2023-01-27 00:00:00 Telephone Geovani [facility]ELMO?[facility] [id number] 350.1.13.10 4.2.7.2.686 [id number] [facility] 2023-01-20 09:30:00 2023-01-20 09:45:00 Flare Man Visit Lab, Ang - Db Geovani [facility] 1..840.114 350.1.13.10 4.2.7.2.686 [id number] [facility] 2023-01-20 08:30:00 2023-01-20 09:21:40 Outpatient R GEOVANI [facility] [id number] [facility] 2023-01-20 08:30:00 2023-01-20 09:21:40 Office Visit Geovani [facility] [id number] 350.1.13.10 4.2.7.2.686 [id number] [facility] 2023-01-20 00:00:00 2023-01-20 00:00:00 Orders Only Doctor Unassigned, [place] [facility] 1..840.114 350.1.13.10 4.2.7.2.686 [id number] [id number] [facility] 2023-01-10 00:00:00 2023-01-10 00:00:00 Refill [facility] [place] 1..840.114 350.1.13.10 4.2.7.2.686 [id number] [facility] 2022-10-21 10:00:00 2022-10-21 10:00:00 Outpatient R [facility] [id number] [facility] 2022-09-26 00:00:00 2022-09-26 00:00:00 Outpatient FERGUSON_NIKOLAS MCDOWELL [facility] [id number] Kathe [facility] 2022-08-25 00:00:00 2022-08-25 00:00:00 Outpatient FERGUSON_JO HN MEHOP [facility] [id number] Osmanysierra tucsonlissy [facility] 2022-07-15 09:00:00 2022-07-15 09:00:00 Outpatient JAMIE GREENE [facility] [place] [id number] [facility] 2022-07-01 09:00:00 2022-07-01 09:00:00 Outpatient JAMIE GREENE [facility] [place] [id number] [facility] 2022-04-16 10:30:00 2022-04-16 11:54:55 Outpatient R [facility]OVANI [facility] [id number] [facility] 2022-04-16 10:30:00 2022-04-16 11:54:55 Office Visit [facility] [place] 1..840.114 350.1.13.10 4.2.7.2.686 [id number] [facility] 2022-04-16 00:00:00 2022-04-16 00:00:00 Orders Only Doctor Unassigned, [place] [address].840.114 350.1.13.10 4.2.7.2.686 [id number] [facility] 2022-02-07 00:00:00 2022-02-07 00:00:00 Telephone [facility] [place] [place] [address]..840.114 350.1.13.10 4.2.7.2.686 [id number] [facility] 2022-02-07 00:00:00 2022-02-07 00:00:00 Orders Only Doctor Unassigned, [place] [address]..840.114 350.1.13.10 4.2.7.2.686 [id number] [id number] [facility] 2021-10-22 10:29:00 2021-10-22 10:29:00 Outpatient GERARDO ARANDA [facility] [id number] [facility] 2021-04-11 15:30:00 2021-04-11 15:30:00 Outpatient MONICA [place] [id number] [facility] 2021-04-11 14:16:53 2021-04-11 15:16:53 Nurse Visit Therapy, Adc Covid [facility] 1.840.114 350.1.13.10 4.2.7.2.686 [id number] [facility] 2021-04-11 00:00:00 2021-04-11 00:00:00 Orders Only Doctor Unassigned, [place] [facility] 1.840.114 350.1.13.10 4.2.7.2.686 [id number] [id number] [facility] 2020-05-29 09:20:00 2020-05-29 09:20:00 Outpatient JAMIE GREEEN [facility] [place] [id number] [facility] 2020-05-07 09:20:00 2020-05-07 09:20:00 Outpatient JAMIE GREENE [facility] [place] [id number] [facility] 2020-04-24 10:40:00 2020-04-24 10:40:00 Outpatient JAMIE [facility] [place] [id number] [facility] 2020-04-09 00:00:00 2020-04-09 00:00:00 Telephone Jamie Pérez [facility] 1.840.114 350.1.13.10 4.2.7.2.686 [id number] [facility] 2020-04-09 00:00:00 2020-04-09 00:00:00 Telephone Jamie Pérez [facility] 1.2.840.114 350.1.13.10 4.2.7.2.686 [id number] 2020-03-02 09:32:12 2020-03-02 12:45:11 Office Visit Jamie [facility]rez [facility] 1.2.840.114 350.1.13.10 4.2.7.2.686 [id number] [facility] 2020-03-02 09:40:00 2020-03-02 09:40:00 Outpatient Lissy JAMIE PÉREZ [facility] [place] [id number] [facility] 2020-02-27 14:00:00 2020-02-27 14:00:00 Outpatient [facility] [id number] [facility] 2020-02-24 10:00:00 2020-02-24 10:00:00 Outpatient PEMA [facility] [id number] [facility] 2019-12-20 11:36:00 2019-12-20 11:51:00 Flare Man Visit Michaela, [facility] Jamie Pérez [facility] 1.2.840.114 350.1.13.10 4.2.7.2.686 [id number] [facility] 2019-12-20 09:58:25 2019-12-20 10:38:25 Office Visit Jamie Pérez [facility] 1.2.840.114 350.1.13.10 4.2.7.2.686 [id number] [facility] 2019-12-20 10:00:00 2019-12-20 10:00:00 Outpatient Lissy JAMIE PÉREZ [facility] [place] [id number] [facility] 2019-12-13 00:00:00 2019-12-13 00:00:00 Telephone Erika Grey [facility] 1.2.840.114 350.1.13.10 4.2.7.2.686 [id number] [facility] 2019-10-14 00:00:00 2019-10-14 00:00:00 Orders Only Doctor Unassigned, [place] [facility] 1.2.840.114 350.1.13.10 4.2.7.2.686 [id number] [facility] 2018-12-09 12:44:00 2018-12-09 12:44:00 Outpatient CHOCO NORTHGERARDO WELLS [facility] [id number] [facility] 2016-08-05 10:40:00 2016-08-05 10:40:00 Outpatient CHOCO KATGERARDO [facility] [id number] [facility] 2016-07-25 11:33:00 2016-07-25 11:33:00 Outpatient CHOCO KATGERARDO [facility] [id number] [facility] 2014-10-09 15:42:00 2014-10-11 13:40:00 Inpatient ER OLIVIA STEVENS [facility] MED [id number] [facility] 2014-05-24 12:14:00 2014-05-24 12:14:00 Outpatient CHOCO KATGERARDO [facility] [id number] [facility] 2014-05-18 09:53:00 2014-05-18 13:01:00 Emergency ER RHEA CRUZ [facility] [id number] [facility] 2014-01-05 13:12:00 2014-01-06 15:05:00 Inpatient ER OLIVIA STEVENS [facility] MED [id number] [facility] 2013-11-14 09:23:00 2013-11-14 09:23:00 Outpatient COLLETTE SÁNCHEZ [facility] [id number] [facility] 2013-10-14 10:03:00 2013-10-14 10:03:00 Outpatient GERARDO ARANDA [facility] [id number] [facility] 2013-08-31 09:59:00 2013-08-31 09:59:00 Outpatient GERARDO ARANDA [facility] [id number] [facility] 2013-02-21 10:59:00 2013-02-21 10:59:00 Outpatient MARISOL LACEY [facility] [id number] [facility] 2012-08-16 11:40:00 2012-08-21 14:23:00 Inpatient CHOCO Demarco Carter [facility] MED [id number] [facility] 2012-03-11 09:02:00 2012-03-11 09:02:00 Outpatient MARISOL LACEY [facility] [id number] [facility] 2011-07-14 04:51:00 2011-07-14 06:30:00 Emergency ER RHEA CRUZ [facility] [id number] [facility] 2010-11-21 08:15:00 2010-11-21 08:15:00 Outpatient MARISOL LACEY [facility] [id number] [facility] 2010-11-01 10:46:00 2010-11-01 14:05:00 Emergency ER RHEA CRUZ [facility] [id number] [facility] 2009-05-25 12:15:00 2009-05-28 12:53:00 Inpatient MIREYA KRAFT [facility] MED [id number] [facility] 2008-06-27 13:39:00 2008-06-27 13:39:00 Outpatient EGRARDO ARANDA [facility] [id number] [facility] 2007-09-09 15:14:00 2007-09-09 17:00:00 Emergency ER CLARICE JENKINS [facility] [id number] [facility] 2007-09-01 09:32:00 2007-09-01 09:32:00 Outpatient TAMMIE CAMILO [facility] [id number] [facility] 2007-08-20 13:59:00 2007-08-22 14:44:00 Inpatient JORDYN BEARD [facility] [id number] [facility] 2006-12-30 10:32:00 2006-12-30 10:32:00 Outpatient TAMMIE CAMILO [facility] [id number] [facility] 2006-09-22 10:45:00 2006-09-22 10:45:00 Outpatient GERARDO ARANDA [facility] [id number] [facility] 2006-06-01 14:23:00 2006-06-01 14:23:00 Outpatient GERARDO ARANDA [facility] [id number] [facility] 2005-07-25 08:00:00 2005-07-25 08:00:00 Outpatient CHOCO ROSSTrudy AZAEL [facility] [id number] [facility] 2004-12-20 09:06:00 2004-12-20 09:06:00 Outpatient CHOCO AZAEL COLMENARES [facility] [id number] [facility] 2004-11-26 15:46:00 2004-11-26 15:46:00 Outpatient CHOCO NEELYAZAEL PERDOMO [facility] [id number] [facility] 2004-09-06 09:51:00 2004-09-06 13:00:00 Emergency ER RHEA CRUZ [facility] [id number] [facility] 2004-04-23 13:17:00 2004-04-23 18:40:00 Emergency ER JENNIFER DIGGS [facility] [id number] [facility] 2004-01-30 20:06:00 2004-01-31 13:50:00 Inpatient ER SUPRIYA MICHEL [facility] [id number] [facility] 2003-09-04 02:05:00 2003-09-05 16:40:00 Inpatient ER KACI PARRISH [facility] [id number] [facility] 2001-02-05 07:00:00 2001-02-05 07:00:00 Outpatient LEAH CARLSON [facility] [id number] [facility] 2001-01-04 00:09:00 2001-01-04 03:30:00 Emergency ER ARIANA DIAZ [facility] [id number] [facility] 2000-12-13 21:04:00 2000-12-19 12:15:00 Inpatient ER AZAEL COLMENARES [facility] [id number] [facility] 1999-12-07 20:32:00 1999-12-07 22:55:00 Emergency ER TAYA BONILLA [facility] [id number] [facility] Results Test Description Test Time Test Comments Results Resul t Comments Source XR THORACIC SPINE 3 VW 2023-12-11 18:45:31 EXAM: XR THORACIC SPINE 3 VW HISTORY: Pain look for compression. COMPARISON: None. [facility] Hemoglobin A1C [id number] 14:37:00* Test Item Value Reference Range Interpretation Comme [facility] POCT HBA1C (test code = 4548-4) 7.7 % 4-6 A Lab Interpretation (test cod e = 59281-4) Abnormal [facility] HEMOGLOBIN A1C [id number] 15:33:00* Test Item Value Reference Range Interpretation Comme [facility] POCT HBA1C (test code = 4548-4) 7.9 % 4-6 A Lab Interpretation (test cod e = 55166-8) Abnormal [facility] HEMOGLOBIN A1C [id number] 15:33:00* Test Item Value Reference Range Interpretation Comme nts POCT HBA1C (test code = 4548-4) 7.9 % 4-6 A Lab Interpretation (test cod e = 86322-5) Abnormal [facility] HEMOGLOBIN A1C [id number] 13:48:00* Test Item Value Reference Range Interpretation Comme nts POCT HBA1C (test code = 4548-4) 9.1 % 4-6 A Lab Interpretation (test cod e = 15183-2) Abnormal [facility] HEMOGLOBIN A1C [id number] 13:48:00* Test Item Value Reference Range Interpretation Comme nts POCT HBA1C (test code = 4548-4) 9.1 % 4-6 A Lab Interpretation (test cod e = 04955-2) Abnormal [facility] HEMOGLOBIN A1C [id number] 16:04:00* Test Item Value Reference Range Interpretation Comme nts POCT HBA1C (test code = 4548-4) 6.4 % 4-6 A Lab Interpretation (test cod e = 44573-0) Abnormal [facility] HEMOGLOBIN A1C [id number] 16:04:00* Test Item Value Reference Range Interpretation Comme nts POCT HBA1C (test code = 4548-4) 6.4 % 4-6 A Lab Interpretation (test cod e = 32687-3) [facility] [id number] 22:17:00* Test Item Value Reference Range Interpretation Comme nts VIT B12 (test code = 7182665559) 589 pg/mL 240-930 WAYLON (test code = WAYLON) Biotin has been reported to cause a positive bias, interpret results relative to patient's use of biotin. Lab Interpretation (test code = 00016-1) Normal [facility] B[facility], [id number] 22:17:00* Test Item Value Reference Range Interpretation Comme nts VIT B12 (test code = 7373186002) 589 pg/mL 240-930 WAYLON (test code = WAYLON) Biotin has been reported to cause a positive bias, interpret results relative to patient's use of biotin. Lab Interpretation (test code = 35780-9) [facility]2020-05-05 18:50:00* Test Item Value Reference Range Interpretation Comme nts CALCIUM (test code = 6879978044) 10.4 mg/dL 8.6-10.6 Lab Interpretation (test cod e = 21368-4) [facility]2020-05-05 18:50:00* Test Item Value Reference Range Interpretation Comme nts MAGNESIUM (test code = 8709990599) 1.9 mg/dL 1.7-2.4 Lab Interpretation (test cod e = 70107-9) [facility] 18:50:00* Test Item Value Reference Range Interpretation Comme nts CALCIUM (test code = 6469671327) 10.4 mg/dL 8.6-10.6 Lab Interpretation (test cod e = 01632-2) [facility] 18:50:00* Test Item Value Reference Range Interpretation Comme nts MAGNESIUM (test code = 0524781076) 1.9 mg/dL 1.7-2.4 Lab Interpretation (test cod e = 31085-7) Normal [facility] [id number] 18:49:00* Test Item Value Reference Range Interpretation Comme nts CK (test code = 3267832519) 34 U/L 33-194 Lab Interpretation (test cod e = 81752-6) [facility] JKEQHI3843[facility]-37 18:49:00* Test Item Value Reference Range Interpretation Comme nts CK (test code = 1060011257) 34 U/L 33-194 Lab Interpretation (test cod e = 71332-4) Normal [facility] Notes Date/Time Note Provider Source 2024-02-09 14:53:32 2412-13-46H78:53:32 Keshia Leon ProfessorDivision of Endocrinology 35512-4Frvacduzm encounter MsacDW5515-05-88Q82:54:04Telephone encounter NoteTXT1.2.840.131670.1.13.104.2.7.2 .867273|[id number] for patient lwrd81356-5MzcpQVAORSKMIPKPmakwrnmw C-CDA narrative textUT[address] Adams [id number] GSMMGYVQCYFBVCOFGIJHAS1770-87-62W72: 54:041.2.840.067328.1.72.3.15|1.2.84 0.025880.1.13.104.2.7.2.727879_21311 [id number] [facility] 2024-02-09 14:22:10 8806-55-68D52:22:10 Called to speak with patient. She confirms that she is currently using:- Glucocard Expression- Strips- LancetsWill send message to provider for new prescription and we may send to [facility] for assistance. 86577-5Ykbtxggdl encounter TupsZO0307-57-11Q99:26:56Telephone encounter NoteTXT1.2.840.408406.1.13.104.2.7.2 .202730|1309771809ZSUsqddcgqc for patient ikkq01384-0QjhjTBXICGQAUUTJzfsvcogc C-CDA narrative pttp201215251Kkyhwzo Gutierrez RNUT[address] [id number] MRFDVDJJZELDTAWZIWATUL2300-11-38E75: 26:561.2.840.144694.1.72.3.15|1.2.84 0.799748.1.13.104.2.7.2.727879_21310 [id number] Lizzy Amezcua RN [facility] 2024-02-06 16:43:09 9950-23-40W97:43:09 Tina Wells is a 68 year old femalePts current diabetic supplier is no longer in business, pt is asking for assistance with finding a new supplier because she is currently out of her diabetic supplies now.Please call pt back at [phone]. 44651-9Xxhsztogn encounter MlaxII4433-07-15S51:45:42Telephone encounter NoteTXT1.2.840.299690.1.13.104.2.7.2 .908950|4256830722WQOxbjhrmfw for patient xiup33333-7QzxwYUZJYNSLPFZXbwpddvkz C-CDA narrative dfuz601810534Ysvsvgi M [id number] JLVLUGEOODTZLZWYOTEGYR2696-17-21E36: 45:421.2.840.927466.1.72.3.15|1.2.84 0.737260.1.13.104.2.7.2.727879_21291 [id number] Blanca Gaitan [facility] 2023-12-11 11:44:28 6294-90-38A99:44:28 Pt came by [place] [facility] [place] provider request, stated she was unable to get [facility] records office was closed until Thursday, records placed in provider's box 50614-1Kntqgxrbm encounter NuinLL1230-16-36K22:46:43Telephone encounter NoteTXT1.2.840.829275.1.13.104.2.7.2 .533087|[id number] for patient zoqv78805-5JcfcZNEGKQXHWANAugdlhcjt C-CDA narrative dmxb238195812Wneogdx [id number] DWERPNXEPBTOYUTAPINCTS4444-50-09I46: 46:431.2.840.961484.1.72.3.15|1.2.84 0.223316.1.13.104.2.7.2.727879_20845 [id number] Alison Betancourt [facility] 2023-11-30 11:30:00 3200-32-94J31:30:00 Images from the original note were not included.Venipuncture collection performed by clean technique on the left hand. Total of 3 attempts were made. Slight pressure and a bandage/dressing were applied to the site(s). The patient experienced no complications. The following specimens were processed according to instructions and sent to [facility] laboratories per lab order on 11/30/2023:LT BLUESST 1REDLAV 1PPTDK GREEN (LiHep)DK GREEN (SodH)GRAYDK BLUE (K2)DK BLUE (S)ACDBlood CultureNIPT/NTDPatient has been identified by and name and was provided with cup, antiseptic towelette, and clean catch instructions. 1 urine specimen(s) sent.Unpreserved 1Urine CultureAptima tubeOther urine 73799-1Qwmsy GycqDT8115-06-87T28:48:23Nurse NoteTXT1.2.840.675679.1.13.104.2.7.2 .716369|[id number] for patient soob57999-6Kxeru NoteLNNARRATIVEFormatted C-CDA narrative text[address] Kxje[id number] QBPWCHCYTUFUUEAXKMUGIE4407-26-92B32: 48:231.2.840.367469.1.72.3.15|1.2.84 0.551405.1.13.104.2.7.2.727879_20744 [id number] [facility] 2023-10-07 10:14:37 7107-95-31R82:14:37 BAIRON 07/22/2023NOV 4continue metformin at current dose.Lizzy Valdivia MA 10/07/2023 10:21 AM 63563-5Ltvxfbmda encounter BitdON6656-63-93L39:21:55Telephone encounter NoteTXT1.2.840.226692.1.13.104.2.7.2 .835401|8930557388CKStpsxvgri for patient fywq85357-9IyqbNULZCKLFIVYCzqcgbfnf C-CDA narrative textUT[address] JcetWjple[id number] QACAOSBXFOSJIXOFKINCIG6057-51-50T29: 21:551.2.840.377784.1.72.3.15|1.2.84 0.738628.1.13.104.2.7.2.727879_20304 44036 [facility]"
--- NOTE | 2024-02-19 18:03 | RAD REPORT ---
EXAM DESCRIPTION: Mirella Single View02/19/2024 5:53 pm CLINICAL HISTORY: Chest pain COMPARISON: November 2023 FINDINGS: The lungs appear clear of acute infiltrate. The heart is normal size IMPRESSION: No acute abnormalities displayed
[2024-02-19] MEDS ORDERED: ONDANSETRON 4 MG/2 ML VIAL ONE ×2 (18:53→21:04)
[2024-02-19] MEDS ORDERED: MORPHINE 4 MG/ML SYR ONE (18:53)
[2024-02-19 19:08] LABS: Absolute Eosinophils 0.1 K/uL (0-0.5); Absolute Lymphocytes (CBC) 2.2 K/uL (0.7-4.9); Absolute Monocytes 0.5 K/uL (0.1-1.3); Absolute Neutrophil 4.1 K/uL (1.8-8.0); Basophils % 0.4 % (0-1.3); Eosinophils % 1.3 % (0-4.4); Hematocrit 37.4 % (36.0-45.0); Hemoglobin 11.8 g/dL (12.0-15.0); Lymphocytes % 31.7 % (15.3-44.8); MCH 26.5 pg (27.0-35.0); MCHC 31.5 g/dL (32.0-36.0); MCV 83.9 fL (80-100); MPV 8.4 fL (7.6-11.3); Monocytes % 7.7 % (3.3-12.3); Neutrophils % 58.9 % (41.7-73.7); Platelets 307 thou/uL (152-406); RBC Red Blood Cell Count 4.46 M/uL (3.86-4.86); Red Cell Distribution Width 15.1 % (12.1-15.2)
[2024-02-19 19:09] LABS: PT Prothrombin Time 11.1 SECONDS (9.4-12.5); Protime INR 1.01
[2024-02-19 19:27] LABS: ALT/SGPT 16 U/L (13-56); Albumin 3.5 g/dL (3.4-5.0); Albumin/Globulin Ratio 1.2 (1.1-1.8); Alkaline Phosphatase 88 U/L (45-117); BUN Blood Urea Nitrogen 20 mg/dL (7-18); Bicarbonate 26 mEq/L (21-32); Bilirubin Direct 0.2 mg/dL (0-0.2); Bilirubin Indirect, Calculated 0.3 mg/dL (0.2-0.8); Bilirubin Total 0.5 mg/dL (0.2-1.0); Glomerular Filtration Rate 87 ml/min (=/>90); Glucose Level 99 mg/dL (74-106); Magnesium 1.6 mg/dL (1.6-2.4); NT PRO-BNP 144 pg/mL (<125); Protein, Total 6.5 g/dL (6.4-8.2); Sodium Level 138 mEq/L (136-145)
[2024-02-19 19:28] LABS: AST/SGOT < 10 U/L (15-37)
[2024-02-19] MEDS ORDERED: DIPHENHYDRAMINE 50 MG/ML VIAL ONE (19:42)
[2024-02-19] MEDS ORDERED: FAMOTIDINE 20 MG/2 ML VIAL IV ONE (19:42)
--- NOTE | 2024-02-19 20:13 | RAD REPORT ---
EXAM DESCRIPTION: CT - Angio Aorta For Dissection - 02/19/2024 7:54 pm CLINICAL HISTORY: . Chest and abd pain COMPARISON: 2020 CT abdomen TECHNIQUE: Computed tomography angiography of the chest, abdomen pelvis were obtained. 100 cc Isovue 370 was administered intravenously. Coronal and sagittal reconstruction were performed. MIP 3D reconstruction was performed All CT scans are performed using dose optimization technique as appropriate and may include automated exposure control or mA/KV adjustment according to patient size. FINDINGS: An aortic dissection is not seen. An aortic aneurysm is not displayed. Mild narrowing of the celiac artery. SMA and VAZQUEZ are patent Small duodenal diverticulum A lung consolidation is not present. A pericardial effusion is not seen. A pleural effusion is not no robin. The liver,spleen, pancreas,adrenals and kidneys demonstrate no significant abnormality. There no evidence diverticulitis. Normal appendix. Neurostimulator device in place No adnexal mass Ankylosing spondylitis sacroiliac joints. Right pelvic screw Small umbilical hernia IMPRESSION: Negative for an aortic dissection.
[2024-02-19] MEDS ORDERED: NA CHLORIDE 0.9% 500 ML ONE (21:12)
[2024-02-19] MEDS ORDERED: KETOROLAC 30 MG/ML INJ ONE (21:25)
[2024-02-20 00:38] LABS: Specific Gravity > 1.030 (1.005-1.030); Sqamous Epithelial <5 /HPF (None Seen); Urine Bacteria None Seen /HPF (<20); Urine Bilirubin NEGATIVE (Negative); Urine Blood Negative (Negative); Urine Clarity Clear (Clear); Urine Color Yellow (Yellow); Urine Culture Reflex Order NOT NEEDED; Urine Glucose 4+ (Over) (Negative); Urine Ketones 1+ (Negative); Urine Micro Reflex YN NO BILL MICROSCOPIC; Urine Mucus 1+ /HPF (None Seen); Urine Nitrite NEGATIVE (Negative); Urine Protein TRACE (Negative); Urine RBC <5 /HPF (None Seen); Urine Urobilinogen Normal (Normal); Urine WBC <5 /HPF (<5); Urine pH 5.5 (5.0-7.0)
[2024-02-20] MEDS ORDERED: HYDROMORPHONE HCL 2 MG/ML inj ONE (00:45)
[2024-02-20] MEDS ORDERED: METOCLOPRAMIDE 10 MG/2mL INJ ONE (00:52)
--- NOTE | 2024-02-20 01:37 | ER ---
Nurse's Notes [facility] Name: Tina Elizalde Age: 68 yrs Sex: Female : 1955 Arrival Date: 02/19/2024 Time: 16:26 Bed 16 Private MD: Diagnosis: Chest pain, unspecified;Lower abdominal pain, unspecified;Nausea with vomiting, unspecified Presentation: 02/18 16:40 Chief complaint: Patient states: CP, abdominal pain with nausea for 2 weeks. Went to [address] machine is broke, so she came here. Coronavirus screen: Client denies travel out of the [place] in the last 14 days. At this time, the client does not indicate any symptoms associated with coronavirus-19. Ebola Screen: Patient denies travel to an Ebola-affected area in the 21 days before illness onset. Initial Sepsis Screen: Does the patient meet any 2 criteria? No. Patient's initial sepsis screen is negative. Does the patient have a suspected source of infection? No. Patient's initial sepsis screen is negative. Risk Assessment: Do you want to hurt yourself or someone else? Patient reports no desire to harm self or others. Onset of symptoms was February 05, 2024. 16:40 Method Of Arrival: Ambulatory [facility] 16:40 Acuity: ALETHEA 3 [facility] Triage Assessment: 16:40 General: Appears uncomfortable, ill, Behavior is calm, cooperative, appropriate for [facility] age. General: Reports feeling ill for fatigue for. Pain: Complains of pain in chest and abdomen Quality of pain is described as aching. Cardiovascular: Reports chest pain, nausea. GI: Reports lower abdominal pain, upper abdominal pain, nausea. Historical: - Allergies: 16:38 Iodine and Iodide Containing Products; ll1 16:38 Bactrim; ll1 16:38 TETRACYCLINES; ll1 16:38 Solu-Medrol; ll1 18:53 artificial sweetners; cm10 - PMHx: 16:38 Diabetes - IDDM; heart problems; Hypertension; Pancreatitis; MVP (Pancreatitis); ll1 - PSHx: 16:38 R SI joint (Pancreatitis); C5-C6 fused, L4-L5 fused, stimulator R hip (Pancreatitis); ll1 - Immunization history:: Adult Immunizations up to date. - Infectious Disease History:: Denies. - Social history:: Smoking status: Patient denies any tobacco usage or history of. Screenin:[facility] ED Fall Risk Assessment (Adult) History of falling in the last 3 months, cm10 including since admission No falls in past 3 months (0 pts) Confusion or Disorientation No (0 pts) Intoxicated or Sedated No (0 pts) Impaired Gait No (0 pts) Mobility Assist Device Used No (0 pt) Altered Elimination No (0 pt) Score/Fall Risk Level 0 - 2 = Low Risk Oriented to surroundings, Maintained a safe environment, Hourly rounding (assess needs \T\ fall precautionary measures) done. Abuse screen: Denies threats or abuse. Denies injuries from another. Nutritional screening: No deficits noted. Tuberculosis screening: No symptoms or risk factors identified. Assessment: 19:04 General: Appears in no apparent distress. comfortable, Behavior is calm, cooperative. jb4 Pain: Complains of pain in chest. Pain: Pain does not radiate. Pain currently is 9 out of 10 on a pain scale. Quality of pain is described as dull. Neuro: Level of Consciousness is awake, alert, obeys commands, Oriented to person, place, time, situation. Cardiovascular: Patient's skin is warm and dry. Respiratory: Airway is patent Respiratory effort is even, unlabored, Respiratory pattern is regular, symmetrical. GI: Reports lower abdominal pain. Derm: Skin is intact, Skin is pink, warm \T\ dry. Musculoskeletal: Circulation, motion, and sensation intact. Range of motion: intact in all extremities. 20:00 Reassessment: Patient appears in no apparent distress at this time. Patient and/or jb4 family updated on plan of care and expected duration. Pain level reassessed. Patient is alert, oriented x 3, equal unlabored respirations, skin warm/dry/pink. 21:00 Reassessment: Patient appears in no apparent distress at this time. Patient and/or jb4 family updated on plan of care and expected duration. Pain level reassessed. Patient is alert, oriented x 3, equal unlabored respirations, skin warm/dry/pink. 22:00 Reassessment: Patient appears in no apparent distress at this time. Patient and/or jb4 family updated on plan of care and expected duration. Pain level reassessed. Patient is alert, oriented x 3, equal unlabored respirations, skin warm/dry/pink. 23:00 Reassessment: Patient appears in no apparent distress at this time. Patient and/or jb4 family updated on plan of care and expected duration. Pain level reassessed. Patient is alert, oriented x 3, equal unlabored respirations, skin warm/dry/pink. 02/19 00:00 Reassessment: Patient appears in no apparent distress at this time. Patient and/or jb4 family updated on plan of care and expected duration. Pain level reassessed. Patient is alert, oriented x 3, equal unlabored respirations, skin warm/dry/pink. 02:50 Reassessment: Patient appears in no apparent distress at this time. Patient and/or jb4 family updated on plan of care and expected duration. Pain level reassessed. Patient is alert, oriented x 3, equal unlabored respirations, skin warm/dry/pink. Patient states feeling better. Vital Signs: 02/18 16:40 BP 162 / 62; Pulse 78; Resp 17; Temp 97.6; Pulse Ox 97% on R/A; Weight 59.87 kg; Height ll1 5 ft. 1 in. ; Pain 8/10; 19:30 BP 153 / 59; Pulse 73; Resp 16; Pulse Ox 97% on R/A; jb4 21:15 BP 148 / 60; Pulse 70; Resp 16; Pulse Ox 95% on R/A; jb4 22:30 BP 131 / 62; Pulse 68; Resp 16; Pulse Ox 96% on R/A; jb4 23:30 BP 150 / 69; Pulse 69; Resp 16; Pulse Ox 95% on R/A; jb4 02/19 00:30 BP 145 / 64; Pulse 71; Resp 17; Pulse Ox 97% ; jb4 02/18 16:40 Body Mass Index 24.94 (59.87 kg, 154.94 cm) ll1 02/18 16:40 Pain Scale: Adult ll1 ED Course: 02/18 16:28 Patient arrived in ED. mg5 16:29 Kaiden Hope PA is PHCP. cp 16:29 Michoacano Negrete MD is Attending Physician. cp 16:36 Arm band placed on right wrist. EKG completed in triage. Results shown to MD. ll1 16:41 Triage completed. ll1 17:55 XRAY Chest (1 view) In Process Unspecified. EDMS 18:29 Langhorst, Mohini, RN is Primary Nurse. al5 18:50 Basic Metabolic Panel Sent. cm10 18:50 CBC with Diff Sent. cm10 18:50 LFT's Sent. cm10 18:51 Magnesium Sent. cm10 18:51 NT PRO-BNP Sent. cm10 18:51 PT-INR Sent. cm10 18:51 Troponin HS Sent. cm10 18:51 Accessed ,peripheral vein via ultrasound, utilizing static ultrasound technique Blood cm10 collected. Clean \T\ dry. Dressing intact. Good blood return. Flushes easily. 20G right upper arm. Missed attempt(s): 20 gauge in right antecubital area. Bleeding controlled, band aid applied, catheter tip intact. 18:52 Patient has correct armband on for positive identification. Placed in gown. Bed in low cm10 position. Call light in reach. Side rails up X2. Provided Education on: ER process and procedures.. Client placed on continuous cardiac and pulse oximetry monitoring. NIBP monitoring applied. classroom monitor on. Door closed. Warm blanket given. Pillow given. 19:04 No provider procedures requiring assistance completed. O2 via RA. jb4 19:54 CT Aorta for Dissection In Process Unspecified. EDMS 21:29 Ezequiel Mendoza, RN is Primary Nurse. jb4 07 02:50 IV discontinued, intact, bleeding controlled, No redness/swelling at site. Pressure jb4 dressing applied. Administered Medications: 02/18 19:02 Drug: morphine IVP or IV 4 mg IVP once over 4 mins Route: IVP; Infused Over: 4 mins; al5 Site: left antecubital; 19:02 Drug: Ondansetron IVP 4 mg IVP once; over 2 minutes Route: IVP; Site: left antecubital; al5 19:48 Drug: Famotidine IVP 20 mg IVP once; dilute with 10 mL 0.9% NaCl; give over 2 minutes jb4 Route: IVP; Site: left antecubital; 19:48 Drug: diphenhydrAMINE IVP 25 mg IVP once Route: IVP; Site: left antecubital; jb4 21:10 Drug: Ondansetron IVP 4 mg IVP once; over 2 minutes Route: IVP; Site: left antecubital; jb4 21:24 CANCELLED (Physician Discretion): morphineor iv 4 mg IVP once over 4 mins cp 21:29 Drug: NS 0.9% IV 500 ml IV at 500 ml/hr continuous Route: IV; Rate: 500 ml/hr; Site: jb4 left antecubital; 21:29 Drug: Ketorolac IVP 15 mg IVP once Route: IVP; Site: left antecubital; jb4 02/19 00:48 Drug: HYDROmorphone IVP 1 mg IVP once Route: IVP; Site: left antecubital; jb4 01:00 Drug: metoCLOPramide IVP 10 mg IVP once; over 1 to 2 minutes Route: IVP; Site: left jb4 antecubital; Medication: 02/18 18:52 VIS not applicable for this client. cm10 Outcome: 02/19 01:36 Discharge ordered by MD. cp 02:50 Discharged to home ambulatory, jb4 02:50 Condition: stable 02:50 Discharge instructions given to patient, family, Instructed on discharge instructions, follow up and referral plans. medication usage, Demonstrated understanding of instructions, follow-up care, medications, Prescriptions given X 1, 02:51 Patient left the ED. jb4 Signatures: Dispatcher [employer] EDMS Kaiden Hope PA PA cp Ezequiel Mendoza RN RN jb4 Davi Chairez RN RN ll1 Perri Logan RN RN cm10 Siria Oliva mg5 Mohini Chávez RN RN al5
--- NOTE | 2024-02-20 01:37 | EDPHYS ---
Physician Documentation [facility] Name: Tina Elizalde Age: 68 yrs Sex: Female : 1955 Arrival Date: 02/19/2024 Time: 16:26 Bed 16 Private MD: ED Physician Michoacano Negrete HPI: 02/18 16:40 This 68 yrs old Female presents to ER via Ambulatory with complaints of Chest cp Pain. 16:40 The patient or guardian reports chest pain that is located primarily in the anterior cp chest wall. Onset: today. The patient presents with abdominal pain in the lower abdomen. Onset: The symptoms/episode began/occurred 2 week(s) ago. 16:40 The pain does not radiate. Associated signs and symptoms: Pertinent positives: nausea cp and vomiting, Pertinent negatives: diarrhea, fever, hematuria, vomiting blood. Historical: - Allergies: 16:38 Iodine and Iodide Containing Products; ll1 16:38 Bactrim; ll1 16:38 TETRACYCLINES; ll1 16:38 Solu-Medrol; ll1 18:53 artificial sweetners; cm10 - PMHx: 16:38 Diabetes - IDDM; heart problems; Hypertension; Pancreatitis; MVP (Pancreatitis); ll1 - PSHx: 16:38 R SI joint (Pancreatitis); C5-C6 fused, L4-L5 fused, stimulator R hip (Pancreatitis); ll1 - Immunization history:: Adult Immunizations up to date. - Infectious Disease History:: Denies. - Social history:: Smoking status: Patient denies any tobacco usage or history of. ROS: 16:45 Constitutional: Negative for body aches, chills, fever, poor PO intake, cp 16:45 Eyes: Negative for injury, pain, redness, and discharge, cp 16:45 ENT: Negative for drainage from ear(s), ear pain, sore throat, difficulty swallowing, difficulty handling secretions, 16:45 Cardiovascular: Positive for chest pain, Negative for edema, palpitations, 16:45 Respiratory: Negative for cough, shortness of breath, wheezing, 16:45 Abdomen/GI: Positive for abdominal pain, nausea and vomiting, Negative for diarrhea, constipation, black/tarry stool, rectal bleeding, 16:45 : Positive for urinary symptoms, pelvic pain, Negative for vaginal bleeding, 16:45 Neuro: Negative for altered mental status, dizziness, headache, numbness, weakness, 16:45 All other systems are negative, Exam: 16:42 ECG was reviewed by the Attending Physician. cp 16:50 Constitutional: The patient appears in no acute distress, alert, awake, cp non-diaphoretic, non-toxic, well developed, well nourished, uncomfortable, 16:50 Head/Face: Normocephalic, atraumatic. cp 16:50 Eyes: Periorbital structures: appear normal, Conjunctiva: normal, no exudate, no injection, Sclera: no appreciated abnormality, Lids and lashes: appear normal, bilaterally, 16:50 ENT: External ear(s): are unremarkable, Nose: is normal, Mouth: Lips: moist, Oral mucosa: pink and intact, moist, Posterior pharynx: Airway: no evidence of obstruction, patent, 16:50 Chest/axilla: Inspection: normal, 16:50 Cardiovascular: Rate: normal, Rhythm: regular, Edema: is not appreciated, JVD: is not appreciated, 16:50 Respiratory: the patient does not display signs of respiratory distress, Respirations: normal, no use of accessory muscles, no retractions, labored breathing, is not present, Breath sounds: are clear throughout, no decreased breath sounds, no stridor, no wheezing, 16:50 Abdomen/GI: Inspection: abdomen appears normal, Bowel sounds: active, all quadrants, Palpation: abdomen is soft and non-tender, in all quadrants, 16:50 Back: CVA tenderness, is absent, 16:50 : Pelvic Exam: External exam: is normal, 16:50 Skin: cellulitis, is not appreciated, no rash present. 16:50 Neuro: Orientation: to person, place \T\ time. Mentation: is normal, Motor: moves all fours, Sensation: is normal, Vital Signs: 16:40 BP 162 / 62; Pulse 78; Resp 17; Temp 97.6; Pulse Ox 97% on R/A; Weight 59.87 kg; Height ll1 5 ft. 1 in. ; Pain 8/10; 19:30 BP 153 / 59; Pulse 73; Resp 16; Pulse Ox 97% on R/A; jb4 21:15 BP 148 / 60; Pulse 70; Resp 16; Pulse Ox 95% on R/A; jb4 22:30 BP 131 / 62; Pulse 68; Resp 16; Pulse Ox 96% on R/A; 4 23:30 BP 150 / 69; Pulse 69; Resp 16; Pulse Ox 95% on R/A; 4 07 00:30 BP 145 / 64; Pulse 71; Resp 17; Pulse Ox 97% ; 4 02/18 16:40 Body Mass Index 24.94 (59.87 kg, 154.94 cm) ll1 02/18 16:40 Pain Scale: Adult ll1 MDM: 02/18 16:29 Patient medically screened. 02/19 01:35 Data reviewed: vital signs, nurses notes, lab test result(s), EKG, radiologic studies, CT scan, plain films. 01:35 I considered the following discharge prescriptions or medication management in the emergency department Medications were administered in the Emergency Department. See MAR. Independent interpretation of the following test(s) in the Emergency Department EKG: See my EKG interpretation above. 02/18 16:38 Order name: Basic Metabolic Panel; Complete Time: 19:57 02/18 21:05 Interpretation: Normal except: CL 108; BUN 20; GFR 87. 02/18 16:38 Order name: CBC with Diff; Complete Time: 19:57 02/18 16:38 Order name: LFT's; Complete Time: 19:57 02/18 16:38 Order name: Magnesium; Complete Time: 19:57 02/18 16:38 Order name: NT PRO-BNP; Complete Time: 19:57 02/18 16:38 Order name: PT-INR; Complete Time: 19:57 02/18 16:38 Order name: Troponin HS; Complete Time: 19:57 02/18 21:05 Order name: Troponin HS; Complete Time: 01:33 cp 02/18 23:13 Order name: Urinalysis W/Microscopic; Complete Time: 01:33 cp 02/19 01:33 Interpretation: Normal except: Urine SG > 1.030; UGLUC 4+ (Over); UKET 1+; UPROT TRACE. 02/18 16:38 Order name: XRAY Chest (1 view); Complete Time: 18:45 02/18 19:08 Order name: CT Aorta for Dissection; Complete Time: 21:03 02/18 16:38 Order name: EKG; Complete Time: 16:39 cp 02/18 16:38 Order name: Cardiac monitoring; Complete Time: 18:30 cp 02/18 16:38 Order name: EKG - Nurse/Tech; Complete Time: 18:30 cp 02/18 16:38 Order name: IV Saline Lock; Complete Time: 18:50 cp 02/18 16:38 Order name: Labs collected and sent; Complete Time: 18:50 cp 02/18 16:38 Order name: O2 Per Protocol; Complete Time: 18:30 cp 02/18 16:38 Order name: O2 Sat Monitoring; Complete Time: 18:30 cp 02/19 00:37 Order name: PO challenge; Complete Time: 01:10 cp EC/05 16:42 Rate is 81 beats/min. Rhythm is regular. GA interval is normal. QRS interval is normal. cp QT interval is normal. T waves are Inverted in lead aVR. Interpreted by me. Reviewed by me. Administered Medications: 19:02 Drug: morphine IVP or IV 4 mg IVP once over 4 mins Route: IVP; Infused Over: 4 mins; al5 Site: left antecubital; 19:02 Drug: Ondansetron IVP 4 mg IVP once; over 2 minutes Route: IVP; Site: left antecubital; al5 19:48 Drug: Famotidine IVP 20 mg IVP once; dilute with 10 mL 0.9% NaCl; give over 2 minutes jb4 Route: IVP; Site: left antecubital; 19:48 Drug: diphenhydrAMINE IVP 25 mg IVP once Route: IVP; Site: left antecubital; jb4 21:10 Drug: Ondansetron IVP 4 mg IVP once; over 2 minutes Route: IVP; Site: left antecubital; jb4 21:24 CANCELLED (Physician Discretion): morphineor iv 4 mg IVP once over 4 mins cp 21:29 Drug: NS 0.9% IV 500 ml IV at 500 ml/hr continuous Route: IV; Rate: 500 ml/hr; Site: jb4 left antecubital; 21:29 Drug: Ketorolac IVP 15 mg IVP once Route: IVP; Site: left antecubital; jb4 02/19 00:48 Drug: HYDROmorphone IVP 1 mg IVP once Route: IVP; Site: left antecubital; jb4 01:00 Drug: metoCLOPramide IVP 10 mg IVP once; over 1 to 2 minutes Route: IVP; Site: left jb4 antecubital; Disposition: 07:03 Co-signature as Attending Physician, Michoacano Negrete MD I reviewed the patient's care rn provided by the Advanced Practice Provider and agree with the diagnosis and treatment plan. Disposition Summary: 02/20/24 01:36 Discharge Ordered Notes: Location: Home cp Problem: new cp Symptoms: have improved cp Condition: Stable cp Diagnosis - Chest pain, unspecified cp - Lower abdominal pain, unspecified cp - Nausea with vomiting, unspecified cp Followup: cp - With: Private Physician - When: 2 - 3 days - Reason: Recheck today's complaints Discharge Instructions: - Discharge Summary Sheet cp - Abdominal Pain, Adult cp - Nonspecific Chest Pain, Adult cp - Nausea and Vomiting, Adult cp Forms: - Medication Reconciliation Form cp - Antibiotic Education cp - Prescription Opioid Use cp - Patient Portal Instructions cp - Leadership Thank You Letter cp Prescriptions: - dicyclomine 20 mg Oral tablet - take 1 tablet ORAL route 4 times per day; 30 tablet; Refills: 0, Product cp Selection Permitted Signatures: Dispatcher [employer] Michoacano Garcia MD MD rn Page, Corey, PA PA cp Ezequiel Mendoza RN RN jb4 Davi Chairez RN RN ll1 Perri Logan RN RN cm10 Mohini Chváez RN RN al5 Corrections: (The following items were deleted from the chart) 02/18 21:24 21:24 morphine IVP or IV 4 mg IVP once over 4 mins ordered. cp cp 02/20 01:36 02/18 16:45 : Positive for urinary symptoms, Negative for vaginal bleeding, cp cp
[2024-02-20 03:06] VITALS: BP 145/64; TEMP 97.6; O2SAT 97
--- NOTE | 2024-02-21 10:32 | EKG ---
Test Date: 2024-02-19 Test Time: 16:36:38 [employer]der [employer]: LML MEASUREMENT RESULTS: Intervals: Rate: 81 ME: 164 QRSD: 74 QT: 394 QTc: 457 [place]: P: 82 ME: 164 QRS: 24 T: 51 INTERPRETIVE STATEMENTS: Normal sinus rhythm Normal ECG Compared to ECG 11/30/2023 11:19:22 No significant changes Electronically Signed On 02-21-24 10:31:06 CDT by Calos Lynn
== END 2024-02-20 02:51 | disposition home or self-care (01) ==
LOC: ER 16:26
DX: R07.89 Other chest pain (principal); R10.30 Lower abdominal pain, unspecified; R11.2 Nausea with vomiting, unspecified
CPT/HCPCS: 93005; 85025; 81001; 80048; 36415; 83735; 85610; 80076; 84484 ×2; 83880; 71275; 74175; 71045; 96375; 96374; 99285; Q9967; J2765; J1200; J1170; J2405 ×2; J7040

== ENCOUNTER 2024-11-23 06:11 | Day surgery (SDC) | payer OTHER ==
[2024-11-21 09:22] LABS: Absolute Eosinophils 0.2 K/uL (0-0.5); Absolute Lymphocytes (CBC) 2.3 K/uL (0.7-4.9); Absolute Monocytes 0.8 K/uL (0.1-1.3); Absolute Neutrophil 7.2 K/uL (1.8-8.0); Basophils % 0.4 % (0-1.3); Eosinophils % 2.2 % (0-4.4); Hematocrit 41.7 % (36.0-45.0); Hemoglobin 13.8 g/dL (12.0-15.0); MCH 28.7 pg (27.0-35.0); MCHC 33.2 g/dL (32.0-36.0); MCV 86.3 fL (80-100); MPV 8.6 fL (7.6-11.3); Monocytes % 7.2 % (3.3-12.3); Neutrophils % 68.2 % (41.7-73.7); Nucleated Red Blood Cells % 0.1 % (0-0); Platelets 303 thou/uL (152-406); RBC Red Blood Cell Count 4.83 M/uL (3.86-4.86); Red Cell Distribution Width 14.1 % (12.1-15.2)
[2024-11-21 09:31] LABS: PT Prothrombin Time 9.5 SECONDS (10-13.0); PTT, Activated Partial Thromb 33.1 SECONDS (27.2-37.4); Protime INR 0.83
[2024-11-21 09:49] LABS: Anion Gap 9.9 mEq/L (5.0-15.0); Potassium 3.9 mEq/L (3.5-5.1)
--- NOTE | 2024-11-21 11:29 | EKG ---
Test Date: 2024-11-21 Test Time: 09:08:29 [employer]: ELIZABETH MEASUREMENT RESULTS: Intervals: Rate: 74 DC: 162 QRSD: 88 QT: 402 QTc: 446 [place]: P: 50 DC: 162 QRS: -1 T: 29 INTERPRETIVE STATEMENTS: Normal sinus rhythm Septal infarct, age undetermined Abnormal ECG Compared to ECG 02/19/2024 16:36:38 Myocardial infarct finding now present Electronically Signed On 11-21-24 11:28:10 CDT by Calos Lynn
[2024-11-23] MEDS ORDERED: LIDOCAINE 1% MPF 5 ML VIAL ONE (07:20)
[2024-11-23] MEDS ORDERED: propofoL 200 MG/20 ML VIAL IV ONE (07:20)
[2024-11-23] MEDS ORDERED: EPINEPHRINE 1 MG/ML VIAL ONE (07:32)
[2024-11-23] MEDS: ONDANSETRON 4 MG/2 ML VIAL ONE (07:37)
[2024-11-23] MEDS: NA CHLORIDE 0.9% 1,000 ML ONE (07:40)
[2024-11-23] MEDS ORDERED: SIMETHICONE 40 MG/ 0.6 ML ONE (08:17)
[2024-11-23] MEDS: FENTANYL CITR 100 MCG/2 ML ONE (08:26)
[2024-11-23] MEDS ORDERED: KETOROLAC 30 MG/ML INJ ONE (08:33)
[2024-11-23] MEDS: MORPHINE 4 MG/ML SYR ONE (08:40)
[2024-11-23 09:39] VITALS: O2SAT 100
[2024-11-23 09:41] VITALS: BP 160/80; TEMP 97.3
--- NOTE | 2024-11-24 11:50 | EKG ---
Test Date: 2024-11-23 Test Time: 08:57:06 Business Solutions Architect: SUNG MEASUREMENT RESULTS: Intervals: Rate: 84 GA: 172 QRSD: 80 QT: 388 QTc: 458 [place]: P: 74 GA: 172 QRS: 15 T: 46 INTERPRETIVE STATEMENTS: Normal sinus rhythm Normal ECG Compared to ECG 11/21/2024 09:08:29 Myocardial infarct finding no longer present Electronically Signed On 11-24-24 11:48:47 CDT by Calos Lynn
== END 2024-11-23 08:45 | disposition home or self-care (01) ==
LOC: OR 06:11
PROVIDERS: ATTEND Internal Medicine Gastroenterology
PROC: 0DB88ZX Excision of Small Intestine, Via Natural or Artificial Opening Endoscopic, Diagnostic (ICD-10-PCS; 2024-11-23)
PROC: 0DB78ZX Excision of Stomach, Pylorus, Via Natural or Artificial Opening Endoscopic, Diagnostic (ICD-10-PCS; 2024-11-23)
PROC: 0DB68ZX Excision of Stomach, Via Natural or Artificial Opening Endoscopic, Diagnostic (ICD-10-PCS; principal; 2024-11-23 07:30)
DX: K29.50 Unspecified chronic gastritis without bleeding (principal); R11.0 Nausea; R10.13 Epigastric pain; R10.11 Right upper quadrant pain; R10.12 Left upper quadrant pain; K59.1 Functional diarrhea; K21.9 Gastro-esophageal reflux disease without esophagitis; K44.9 Diaphragmatic hernia without obstruction or gangrene
CPT/HCPCS: 43239; 93005 ×2; 85025; 80048; 36415; 88312; 85610; 82947; 88305; 85730; J2704; J2003; J3010; J0171; J2405; J7030

== ENCOUNTER 2024-11-23 08:51 | Emergency (ER) | payer OTHER ==
--- OUTSIDE RECORDS SUMMARY | 2024-11-23 09:01 | XMS REPORT | Continuity of Care Document ---
Author Name Unknown Address [address] [facility] [place] [address] Organization [facility] [place] Address [address] [facility] [place] [address] Care Team Providers Care Gold Prospector Name Role Phone MD KASSADNRA REYNOLDS Primary Care Physician GERARDO KAT Attending Clinician Unavailable Salina Jasso Attending Clinician Unavaila RENEE Gil Attending Clinician Unavailable PARUL CAGLE Attending Clinician Unava ilrian Doctor Unassigned, Morven Attending Clinician U navailTRINI Kumar Attending Clinician Unavailable Parul Cagle MD Attending Clinician [phone] Jada CULLEN PhD, Aleksandar Baires Attending Clinician + Arnulfo Otero MD Attending Clinician [phone] LEVON CHAVEZ Attending Clinician Timmy Olivo MD, Renee Attending Clinician [phone] Lab, Ang - Db Attending Clinician Unavailable SHERRI LOPEZ Attending Clinician Unavailable Renee Olivo MD Attending Clinician [phone] GISELLE RAMOS Attending Clinician Unavailable NwaGiselle Lima Attending Clinician [phone] MOE WILLIAMSON Attending Clinician Unavailable MOE WILLIAMSON Attending Clinician Unavailable Sherri Lopez MD Attending Clinician [phone] Jamie Sawyer MD Attending Clinician [phone] JAMIE SAWYER Attending Clinician Unavail able JAMIE SAWYER Attending Clinician Unavail able Lab, Ang - Db Attending Clinician Unavailable FAISAL LEI Attending Clinician Unavailable FAISALDO Vázquez Attending Clinician Unavailable GC_GCBZW_Louisa_S Attending Clinician Unavaila pepito Doctor Unassigned, Morven Attending Clinician U navailable JESSICA_YASIR Attending Clinician Unavailable MONICA HOLGUIN Attending Clinician Unavailable Therapy, [facility] Covid Infusion Attending Clinician Unavailable Monica Holguin MD Attending Clinician [phone] ERIKA GREY Attending Clinician Unavaila ble Pob, [facility] Lab Main Attending Clinician UnavailErika chavez Rai, MD Attending Clinician + [phone] OLIVIA STEVENS Attending Clinician Unavailable UGORJI, CLEMENT C. Attending Clinician Unavailab le OTHER, ENTER NAME IN NOTES Attending Clinician U MARISOL Aviles Attending Clinician Unavailable Demarco Carter Attending Clinician Unavailable MIREYA WEAVER Attending Clinician Unavail able CLARICE JENKINS Attending Clinician Unavailable TAMMIE LOPEZ Attending Clinician UnavailJORDYN Fan Attending Clinician Unavailab cade COLMENARES ATAURRABB Attending Clinician Unavailable JENNIFER DIGGS Attending Clinician Unavailable SUPRIYA MICHEL Attending Clinician Unavailable KACI PARRISH Attending Clinician Unavailable RICK COLUNGA Attending Clinician Unavailable ARIANA DIAZ Attending Clinician Unavail able TAYA BONILLA Attending Clinician Unavailab Kassandra Pantoja Admitting Clinician Unavailable TRINI TRIMBLE Admitting Clinician Unavailable FARRAH_GCBZW_Louisa_Fran Admitting Clinician Unavaila pepito SEGUNDO Admitting Clinician Unavailable OLIVIA STEVENS Admitting Clinician Unavailable Demarco Carter Admitting Clinician Unavailable MIREYA WEAVER Admitting Clinician Unavail able JORDYN SAMPSON Admitting Clinician Unavailab SUPRIYA Jean Admitting Clinician Unavailable JOE CHI Admitting Clinician Unavailable DARRIAN, ATAURRABB Admitting Clinician Unavailable Payers Payer Name Policy Type Policy Number Effective Date Expirati on Date Source MEDICARE PART A \\T\\ B [id number] 2005 00:00:00 [place] [id number] 2018 00:00:00 Problems Condition Name Condition Details Condition Category Status Onset Date Resolution Date Last Treatment Date Treating Clinician Comments Source Type 2 diabetes mellitus without complicati on, unspecifie d whether termite treater insulin use Type 2 diabetes mellitus without complicati on, unspecifie d whether termite treater insulin use Disease Active 03-24 00:00: 00 [facility] Dyslipidem ia Dyslipidem ia Disease Active 03-24 00:00: 00 [facility] Female stress incontinen ce Female Stress Incontinen ce Problem Active 03-01 00:00: 00 [facility] Pain in pelvis Pain in Pelvis Problem Active 03-01 00:00: 00 [facility] Low back pain Low Back Pain Problem Active 2024-0 7-16 00:00: 00 [facility] Pruritus of vulva Pruritus of Vulva Problem Active 02-10 00:00: 00 [facility] Dysuria Dysuria Problem Active 02-10 00:00: 00 [facility] Cyst of left ovary Cyst of Left Ovary Problem Active 02-10 00:00: 00 [facility] Swollen abdomen Swollen Abdomen Problem Active 02-06 [...] Problem Active 02-06 00:00: 00 [facility] Bronchitis Problem [facility] Obstructiv e chronic bronchitis with exacerbati on Problem [facility] Chest pain Problem [facility] Chest tightness Problem [facility] Type 2 diabetes mellitus Problem [facility] Hyperlipid emia Problem [facility] Hypertensi on Problem [facility] Nausea Problem [facility] Pleurisy Problem [facility] No known active problems No known active problems Disease [facility] Allergies, Adverse Reactions, Alerts Allergy Name Allergy Type Status Severity Reaction(s) Onset Date Inactive Date Treating Clinician Comments Source Codeine ([id number]) Propensi ty to adverse reaction s Active Severe 2-12 00:00: 00 [facility] artifici al sweetene rs Allergy to substanc e Active Unknown 2-12 00:00: 00 [facility] Methylpr ednisolo ne ([id number]) Allergy to substanc e Active Unknown 4-03 00:00: 00 [facility] Solu-Med rol Mix-O-Vi al Propensi ty to adverse reaction s Active Palpitations 04-11 00:00: 00 [facility] Tetracyc line Propensi ty to adverse reaction s Active Unknown - See comments 04-11 00:00: 00 Gets pancreati tis [facility] DECONGES T DRUG Active Palpitations 04-11 00:00: 00 [facility] ETODOLAC DRUG INGREDI Active Swelling 04-11 00:00: 00 [facility] SOLU-MED ROL MIX-O- AL DRUG Active Palpitations 04-11 00:00: 00 [facility] TETRACYC LINE DRUG INGREDI Active Unknown-Cmnt 04-11 00:00: 00 [facility] Deconges t Propensi ty to adverse reaction s Active Palpitations 04-11 00:00: 00 [facility] Etodolac Propensi ty to adverse reaction s Active Swelling 04-11 00:00: 00 [facility] Sulfamet hoxazole w/Trimet hoprim ([id number]) Allergy to substanc e Active Unknown 2013-08 00:00: 00 [facility] Etodolac ([id number]) Allergy to substanc e Active Unknown 01-05 00:00: 00 [facility] Ephedrin e ([id number]) Allergy to substanc e Active Unknown 10-31 00:00: 00 [facility] NSAIDs Allergy to substanc e Active Unknown 10-31 00:00: 00 [facility] Sulfacet amide ([id number]) Allergy to substanc e Active Severe 2010-08 00:00: 00 [facility] Piroxica m ([id number]) Allergy to substanc e Active Severe 2010-08 00:00: 00 [facility] Tetracyc line ([id number]) Allergy to substanc e Active Severe 2010-08 00:00: 00 [facility] Trimetho prim ([id number]) Allergy to substanc e Active Severe 2010-08 00:00: 00 [facility] Contrast media Allergy to substanc e Active Severe 08-20 00:00: 00 [facility] TETRACYC LINE DA Active U RASH 2003-08 00:00: 00 [facility] BACTRIM DA Active U VOMITTING 2003-08 00:00: 00 [facility] FELDENE DA Active U 2003-08 00:00: 00 [facility] IODINE CONTRAST DA Active U RASH 2003-08 00:00: 00 [facility] IODINE TOPICAL DA Active U 2003-08 00:00: 00 [facility] LODINE DA Active U VOMITTING 2003-08 00:00: 00 [facility] No Known Food Allergie s DA Active U 2003-08 00:00: 00 [facility] No Known Other Allergie s DA Active U 2003-08 00:00: 00 [facility] Bactrim Ds Allergy to substanc e Active [facility] Epinephr ine Allergy to substanc e Active [facility] IODINE Allergy to substanc e Active Hives [facility] Solu-med rol (Pf) Allergy to substanc e Active [facility] Tetracyc line Allergy to substanc e Active [facility] NO KNOWN ALLERGIE S Drug Class Active [facility] Social History Social Habit Start Date Stop Date Quantity Comments Source History of tobacco use [facility] Sexual orientation U [facility] Tobacco use and exposure 2023-12-11 00:00:00 2023-12-11 00:00:00 Smokeless tobacco non-user [facility] History of Social function 2023-07-22 00:00:00 2023-07-22 00:00:00 [facility] Exposure to SARS-CoV-2 (event) 2022-04-06 00:00:00 2022-04-16 10:38:00 Not sure [facility] Sex assigned at 1955 00:00:00 1955 00:00:00 [facility] Smoking Status Start Date Stop Date Source Never smoked tobacco (finding) [facility] Tobacco smoking consumption unknown [facility] Medications Ordered Medication Name Filled Medication Name Start Date Stop Date Current Medication? Ordering Clinician Indication Dosage Frequency Signature (SIG) Comments Components Source Guaifenesin /Codeine Phos * (Cheratussi n Ac 100-10 Mg/5ML *) SYP Guaifenesin /Codeine Phos * (Cheratussi n Ac 100-10 Mg/5ML *) SYP 0 2- 13:30: 00 10-11 12:06 :00 No 5 [facility] Aspirin Aspirin 2-12 13:29: 00 Yes 81 [facility] Clopidogrel Bisulfate (Plavix 75 Mg) 75 Mg TAB Clopidogrel Bisulfate (Plavix 75 Mg) 75 Mg TAB 2-12 13:29: 00 Yes 75 [facility] Isosorbide Dinitrate (Isosorbide Mononitrate Er) 30 Mg Tablet ER 24HR Isosorbide Dinitrate (Isosorbide Mononitrate Er) 30 Mg Tablet ER 24HR 2-12 13:29: 00 Yes 30 [facility] Lidocaine (Lidoderm) 1 Ea Patch Lidocaine (Lidoderm) 1 Ea Patch 2-12 13:29: 00 Yes 1 [facility] Benzonatate (Tessalon *) 100 Mg CAP Benzonatate (Tessalon *) 100 Mg CAP 2-10 20:44: 00 Yes 1 [facility] Budesonide- Formoterol Fumarate (Breyna 160-4.5 Mcg/Act) 1 Aer Aerosol Budesonide- Formoterol Fumarate (Breyna 160-4.5 Mcg/Act) 1 Aer Aerosol 2024-0 2-10 20:44: 00 Yes 2 [facility] Glipizide (Glipizide Er 5 Mg) 5 Mg Tablet ER 24HR Glipizide (Glipizide Er 5 Mg) 5 Mg Tablet ER 24HR 2-10 20:44: 00 Yes [facility] benzonat[facility] 100 mg capsule 2- 00:00: 00 Yes [id number] 100mg Take 1 capsule by mouth every 8 (eight) hours as needed for Cough. [facility] predniSONE 50 mg tablet 2 00:00: 00 Yes [id number] 50mg Take 1 tablet by mouth in the morning. [facility] budesonide- formoteroL (BREYNA) 160-4.5 mcg/actuati on inhaler 09-21 00:00: 00 Yes [id number] 2{puff} Inhale 2 Puffs in the morning and 2 Puffs in the evening. [facility] famotidine 40 mg tablet 09-21 00:00: 00 10-06 05:59 :00 Yes [id number] 40mg Take 1 tablet by mouth in the morning and 1 tablet in the evening. Do all this for 14 days. [facility] Mometasone- Formoterol (DULERA) 200-5 mcg/actuati on inhaler 09-21 00:00: 00 09-21 00:00 :00 No [id number] 2{puff} Inhale 2 Puffs in the morning and 2 Puffs in the evening. [facility] ondansetron (ZOFRAN (PF)) injection 4 mg 09-19 19:15: 00 09-19 19:18 :00 No 4mg 4 mg, Slow IV Push, ONCE, 1 dose, On Thu09/19/24 at 1315, Administer over 2-5 Minutes, 2 mL [facility] ondansetron (ZOFRAN (PF)) injection 4 mg 09-19 17:45: 00 09-19 17:38 :00 No 4mg 4 mg, Slow IV Push, ONCE, 1 dose, On Thu09/19/24 at 1145, Administer over 2-5 Minutes, 2 mL [facility] dexamethaso ne sod phos PF injection 10 mg 09-19 17:15: 00 09-19 17:26 :00 No 10mg 10 mg, Slow IV Push, ONCE, 1 dose, On Thu09/19/24 at 1115, 1 mL [facility] ipratropium -albuteroL (DUONEB) 0.5 mg-3 mg(2.5 mg base)/3 mL nebulizer solution 3 mL 09-19 16:45: 00 09-20 04:44 :00 No [id number] 3mL [facility] ipratropium (ATROVENT) 0.02 % nebulizer solution 0.5 mg 09-19 06:00: 00 09-21 22:23 :00 No [id number] .5mg 0.5 mg, Inhalation , ONCE, 1 dose, On Thu09/19/24 at 0000, Routine [facility] albuterol (PROVENTIL) 2.5 mg /3 mL (0.083 %) nebulizer solution 1.25 mg 09-19 06:00: 00 09-21 22:21 :00 No [id number] 1.25mg 1.25 mg, Inhalation , ONCE, 1 dose, On Thu09/19/24 at 0000, Routine [facility] furosemide 20 mg tablet 09-19 00:00: 00 09-27 05:59 :00 No [id number] 20mg Take 1 tablet by mouth every morning for 7 days. [facility] budesonide- formoteroL (BREYNA) 160-4.5 mcg/actuati on inhaler 09-19 00:00: 00 09-21 00:00 :00 No [id number] 2{puff} Inhale 2 Puffs in the morning and 2 Puffs in the evening. [facility] empaglifloz in (JARDIANCE) 25 mg Tab tablet 2023-08 00:00: 00 Yes [id number] 25mg Take 1 tablet by mouth every morning. [facility] glipiZIDE XL 5 mg 24 hr tablet 2023-08-17 00:00: 00 Yes [id number] 5mg Take 1 tablet by mouth daily with breakfast. [facility] JARDIANCE 25 mg Tab tablet 2023-08 2- 00:00: 00 08-02 00:00 :00 No [id number] 25mg TAKE 1 TABLET BY MOUTH IN THE MORNING [facility] glipiZIDE XL 5 mg 24 hr tablet 2023-08- 00:00: 00 08-02 00:00 :00 No [id number] 5mg Take 1 tablet by mouth daily with breakfast. [facility] glipiZIDE XL 5 mg 24 hr tablet 03-24 00:00: 00 06-23 00:00 :00 No [id number] 5mg Take 1 tablet by mouth daily with breakfast. [facility] Blood-Gluco se Meter (ACCU-CHEK GUIDE GLUCOSE METER) [facility]: 00 Yes [id number] Use as directed [facility] lancets 33 gauge Misc 0 6-25 00:00: 00 Yes [id number] Use as directed [facility] blood sugar diagnostic (ACCU-CHEK GUIDE TEST STRIPS) strip 6-25 00:00: 00 Yes [id number] Use as directed [facility] empaglifloz in (JARDIANCE) 25 mg Tab tablet 4-15 00:00: 00 07-18 00:00 :00 No [id number] 25mg Take 1 tablet by mouth in the morning. [facility] metformin ER 750 mg 24 hr tablet 4-15 00:00: 00 03-24 00:00 :00 No [id number] 750mg Take 1 tablet by mouth in the morning and 1 tablet in the evening. [facility] Empaglifloz in (Jardiance) 25 Mg TAB Empaglifloz in (Jardiance) 25 Mg TAB 2023-0 4-04 00:45: 00 Yes 1 [facility] Nitroglycer in (Nitrostat 0.4 Mg *) 0.4 Mg Tab Sublingual Nitroglycer in (Nitrostat 0.4 Mg *) 0.4 Mg Tab Sublingual 11-18 00:45: 00 Yes .4 [facility] Amoxicillin /Clavulanat e Potassium (Augmentin *) 875 Mg TAB Amoxicillin /Clavulanat e Potassium (Augmentin *) 875 Mg TAB 11-18 00:38: 25 11-17 23:38 :00 No 1 [facility] METFORMIN ER 750 mg 24 hr tablet 10-07 00:00: 00 Yes [id number] 750mg TAKE 1 TABLET BY MOUTH DAILY WITH BREAKFAST [facility] empaglifloz in (JARDIANCE) 25 mg Tab 2022-08 00:00: 00 11-29 00:00 :00 No [id number] 25mg Take 1 tablet by mouth in the morning. [facility] empaglifloz in (JARDIANCE) 10 mg 2022-08 00:00: 00 07-22 00:00 :00 No [id number] 10mg TAKE 1 TABLET BY MOUTH IN THE MORNING [facility] pantoprazol e 40 mg EC tablet 01-20 08:51: 48 Yes 40mg Take 1 tablet by mouth in the morning and 1 tablet in the evening. [facility] metformin ER 750 mg 24 hr tablet 01-20 00:00: 00 10-07 00:00 :00 No [id number] 750mg Take 1 tablet by mouth daily with breakfast. [facility] empaglifloz in 10 mg 01-20 00:00: 00 07-06 00:00 :00 No [id number] 10mg Take 1 tablet by mouth in the morning. [facility] pantoprazol e 40 mg EC tablet 04-16 10:58: 15 Yes 40mg Take 40 mg by mouth 2 (two) times daily. [facility] diphenhydrA MINE 50 mg capsule 04-16 10:58: 15 Yes 50mg Take 50 mg by mouth at bedtime. [facility] metformin ER 750 mg 24 hr tablet 04-16 00:00: 00 01-20 00:00 :00 No [id number] 750mg Take 1 tablet by mouth daily with breakfast. [facility] pantoprazol e 40 mg EC tablet 03-02 14:51: 48 12-10 00:00 :00 No 40mg Take 1 tablet by mouth in the morning and 1 tablet in the evening. [facility] diphenhydrA MINE 50 mg capsule 03-02 14:51: 48 12-10 00:00 :00 No 50mg Take 1 capsule by mouth at bedtime. [facility] pantoprazol e 40 mg EC tablet 03-02 09:51: 48 Yes 40mg Take 40 mg by mouth 2 (two) times daily. [facility] diphenhydrA MINE 50 mg capsule 03-02 09:51: 48 Yes 50mg Take 50 mg by mouth at bedtime. [facility] famotidine 40 mg tablet 22 00:00: 00 Yes 40mg Take 1 tablet by mouth in the morning and 1 tablet in the evening. [facility] cetirizine 10 mg tablet 3-13 00:00: 00 Yes 10mg Take 1 tablet by mouth. [facility] metFORMIN 500 mg tablet 2018-08 00:00: 00 04-16 00:00 :00 No 500mg Take 500 mg by mouth 2 (two) times daily. [facility] Guaifenesin /Dextrometh orphan Guaifenesin /Dextrometh orphan 10-11 12:06: 00 11-17 23:38 :00 [facility] Amitriptyli ne Hcl (Elavil *) 25 Mg TAB Amitriptyli ne Hcl (Elavil *) 25 Mg TAB 2 14:35: 00 11-17 23:45 :[address] [facility] Ondansetron Hcl (Zofran *) 4 Mg TAB Ondansetron Hcl (Zofran *) 4 Mg TAB 01-06 12:48: 00 10-09 18:21 :00 No 4 [facility] Escitalopra m Oxalate (Lexapro 10 Mg*) 10 Mg TAB Escitalopra m Oxalate (Lexapro 10 Mg*) 10 Mg TAB 01-05 11:47: 00 Yes 20 [facility] Metoprolol Succinate (Toprol Xl *) 25 Mg TAB Metoprolol Succinate (Toprol Xl *) 25 Mg TAB 01-05 11:47: 00 Yes 25 [facility] Ipratropium -Albuterol (Ipratropiu m [place]/Alb ut 0.5-2.5 (3) Mg/3ML) 1 [facility] Ipratropium -Albuterol (Ipratropiu m [place]/Alb ut 0.5-2.5 (3) Mg/3ML) 1 [facility] 01-05 11:47: 00 11-17 23:45 :00 No [facility] Nitroglycer in (Nitroglyce rin Transdermal 0.4 Mg/Hr *) 0.4 Mg/ DIS Nitroglycer in (Nitroglyce rin Transdermal 0.4 Mg/Hr *) 0.4 Mg/ DIS 01-05 11:47: 00 11-17 23:45 :00 No 1 [facility] Cetirizine Hcl (Zyrtec Allergy) 10 Mg TAB Cetirizine Hcl (Zyrtec Allergy) 10 Mg TAB 10-20 04:11: 33 Yes [facility] buspirone 5 mg tablet TAKE 1 TABLET BY MOUTH EVERY MORNING AND 1 TABLET BY MOUTH EVERY EVENING buspirone 5 mg tablet TAKE 1 TABLET BY MOUTH EVERY MORNING AND 1 TABLET BY MOUTH EVERY EVENING No buspirone 5 mg tablet TAKE 1 TABLET BY MOUTH EVERY MORNING AND 1 TABLET BY MOUTH EVERY EVENING [facility] cetirizine 10 mg capsule Take by oral route. cetirizine 10 mg capsule Take by oral route. No cetirizine 10 mg capsule Take by oral route. [facility] cyclobenzap rine 10 mg tablet-TENS unit-TENS unit electrode pads cyclobenzap rine 10 mg tablet-TENS unit-TENS unit electrode pads No cyclobenza bridget 10 mg tablet-TEN S unit-TENS unit electrode pads [facility] escitalopra m 20 mg tablet escitalopra m 20 mg tablet No escitalopr am 20 mg tablet [facility] famotidine 20 mg tablet TAKE 2 TABLETS BY MOUTH DAILY famotidine 20 mg tablet TAKE 2 TABLETS BY MOUTH DAILY No famotidine 20 mg tablet TAKE 2 TABLETS BY MOUTH DAILY [facility] metoprolol succinate ER 25 mg tablet,exte nded release 24 hr TAKE 1 TABLET BY MOUTH EVERY DAY metoprolol succinate ER 25 mg tablet,exte nded release 24 hr TAKE 1 TABLET BY MOUTH EVERY DAY No metoprolol succinate ER 25 mg tablet,ext ended release 24 hr TAKE 1 TABLET BY MOUTH EVERY DAY [facility] nystatin 100,000 unit/gram topical cream APPLY TO THE AFFECTED AREA TWICE DAILY nystatin 100,000 unit/gram topical cream APPLY TO THE AFFECTED AREA TWICE DAILY No nystatin 100,000 unit/gram topical cream APPLY TO THE AFFECTED AREA TWICE DAILY [facility] omeprazole 40 mg capsule,del ayed release TAKE 1 CAPSULE BY MOUTH IN THE MORNING omeprazole 40 mg capsule,del ayed release TAKE 1 CAPSULE BY MOUTH IN THE MORNING No omeprazole 40 mg capsule,de layed release TAKE 1 CAPSULE BY MOUTH IN THE MORNING [facility] pravastatin 40 mg tablet TAKE 1 TABLET BY MOUTH EVERY DAY pravastatin 40 mg tablet TAKE 1 TABLET BY MOUTH EVERY DAY No pravastati n 40 mg tablet TAKE 1 TABLET BY MOUTH EVERY DAY [facility] ranolazine ER 500 mg tablet,exte nded release,12 hr TAKE 1 TABLET BY MOUTH TWICE DAILY ranolazine ER 500 mg tablet,exte nded release,12 hr TAKE 1 TABLET BY MOUTH TWICE DAILY No ranolazine ER 500 mg tablet,ext ended release,12 hr TAKE 1 TABLET BY MOUTH TWICE DAILY [facility] ciprofloxac in 500 mg tablet TAKE 1 TABLET BY MOUTH EVERY MORNING AND 1 TABLET EVERY EVENING FOR 7 DAYS ciprofloxac in 500 mg tablet TAKE 1 TABLET BY MOUTH EVERY MORNING AND 1 TABLET EVERY EVENING FOR 7 DAYS No ciprofloxa ingrid 500 mg tablet TAKE 1 TABLET BY MOUTH EVERY MORNING AND 1 TABLET EVERY EVENING FOR 7 DAYS [facility] fluconazole 150 mg tablet TAKE 1 TABLET BY MOUTH EVERY 72 HOURS FOR 3 DAYS fluconazole 150 mg tablet TAKE 1 TABLET BY MOUTH EVERY 72 HOURS FOR 3 DAYS No fluconazol e 150 mg tablet TAKE 1 TABLET BY MOUTH EVERY 72 HOURS FOR 3 DAYS [facility] metoclopram michela 10 mg tablet metoclopram michela 10 mg tablet No metoclopra mide 10 mg tablet [facility] ondansetron HCl 4 mg tablet ondansetron HCl 4 mg tablet No ondansetro n HCl 4 mg tablet [facility] Vital Signs Vital Name Observation Time Observation Value Comments S ource Height 2024-10-19 09:45:00 154.097719 cm [facility] Weight 2024-10-19 09:45:00 68.986761 kg [facility] BMI (Body Mass Index) 2024-10-19 09:45:00 28.3 kg/m2 [facility] Weight 2024-09-28 07:12:00 64.5 kg [facility] BMI (Body Mass Index) 2024-09-28 07:12:00 26.0 kg/m2 [facility] Height 2024-09-26 21:00:00 154.9 cm [facility] Systolic blood pressure 2024-09-19 21:00:00 129 mm[Hg] [facility] Diastolic blood pressure 2024-09-19 21:00:00 61 mm[Hg] [facility] Heart rate 2024-09-19 21:00:00 88 /min [facility] Body temperature 2024-09-19 21:00:00 36.67 [place] [facility] Respiratory rate 2024-09-19 21:00:00 19 /min [facility] Oxygen saturation in Arterial blood by Pulse oximetry 2024-09-19 21:00:00 92 /min [facility] Body height 2024-09-19 17:09:00 157.5 cm [facility] Body weight 2024-09-19 17:09:00 68.493 kg [facility] BMI 2024-09-19 17:09:00 27.62 kg/m2 [facility] Systolic blood pressure 2024-09-19 15:45:00 118 mm[Hg] [facility] Diastolic blood pressure 2024-09-19 15:45:00 84 mm[Hg] [facility] Heart rate 2024-09-19 15:45:00 88 /min [facility] Respiratory rate 2024-09-19 15:45:00 18 /min [facility] Body height 2024-09-19 15:45:00 154.9 cm [facility] Body weight 2024-09-19 15:45:00 68.493 kg [facility] BMI 2024-09-19 15:45:00 28.53 kg/m2 [facility] Oxygen saturation in Arterial blood by Pulse oximetry 2024-09-19 15:45:00 95 /min [facility] Systolic blood pressure 2024-08-02 19:53:00 127 mm[Hg] [facility] Diastolic blood pressure 2024-08-02 19:53:00 62 mm[Hg] [facility] Heart rate 2024-08-02 19:53:00 90 /min [facility] [facility] Respiratory rate 2024-08-02 19:53:00 20 /min [facility] Body height 2024-08-02 19:53:00 154.9 cm [facility] Body weight 2024-08-02 19:53:00 68.181 kg [facility] BMI 2024-08-02 19:53:00 28.40 kg/m2 [facility] Oxygen saturation in Arterial blood by Pulse oximetry 2024-08-02 19:53:00 98 /min [facility] Systolic blood pressure 2024-03-24 13:09:00 113 mm[Hg] [facility] Diastolic blood pressure 2024-03-24 13:09:00 67 mm[Hg] [facility] Heart rate 2024-03-24 13:09:00 70 /min [facility] Respiratory rate 2024-03-24 13:09:00 18 /min [facility] Body height 2024-03-24 13:09:00 154.9 cm [facility] Body weight 2024-03-24 13:09:00 60.555 kg [facility] BMI 2024-03-24 13:09:00 25.22 kg/m2 [facility] Oxygen saturation in Arterial blood by Pulse oximetry 2024-03-24 13:09:00 98 /min [facility] Body Weight 2024-02-08 00:00:00 134.4 [lb_av] [facility] BP Systolic 2024-02-08 00:00:00 122 mm[Hg] [facility] BP Diastolic 2024-02-08 00:00:00 59 mm[Hg] [facility] Systolic blood pressure 2023-12-11 13:06:00 132 mm[Hg] [facility] Diastolic blood pressure 2023-12-11 13:06:00 65 mm[Hg] [facility] Heart rate 2023-12-11 13:06:00 83 /min [facility] Respiratory rate 2023-12-11 13:06:00 18 /min [facility] Body height 2023-12-11 13:06:00 154.9 cm [facility] Body weight 2023-12-11 13:06:00 59.693 kg [facility] BMI 2023-12-11 13:06:00 24.87 kg/m2 [facility] Systolic blood pressure 2023-11-30 14:35:00 129 mm[Hg] [facility] Diastolic blood pressure 2023-11-30 14:35:00 81 mm[Hg] [facility] Heart rate 2023-11-30 14:35:00 81 /min [facility] Body height 2023-11-30 14:35:00 154.9 cm [facility] Body weight 2023-11-30 14:35:00 61.054 kg [facility] BMI 2023-11-30 14:35:00 25.43 kg/m2 [facility] Oxygen saturation in Arterial blood by Pulse oximetry 2023-11-30 14:35:00 98 /min [facility] Systolic blood pressure 2023-07-22 15:21:00 139 mm[Hg] [facility] Diastolic blood pressure 2023-07-22 15:21:00 63 mm[Hg] [facility] Heart rate 2023-07-22 15:21:00 85 /min [facility] Body height 2023-07-22 15:21:00 154.9 cm [facility] Body weight 2023-07-22 15:21:00 60.51 kg [facility] BMI 2023-07-22 15:21:00 25.21 kg/m2 [facility] Oxygen saturation in Arterial blood by Pulse oximetry 2023-07-22 15:21:00 97 /min [facility] Systolic blood pressure 2023-01-20 13:38:00 153 mm[Hg] [facility] Diastolic blood pressure 2023-01-20 13:38:00 78 mm[Hg] [facility] Heart rate 2023-01-20 13:38:00 80 /min [facility] Body height 2023-01-20 13:38:00 154.9 cm [facility] Body weight 2023-01-20 13:38:00 64.819 kg [facility] BMI 2023-01-20 13:38:00 27.00 kg/m2 [facility] Systolic blood pressure 2022-04-16 16:03:00 144 mm[Hg] [facility] Diastolic blood pressure 2022-04-16 16:03:00 77 mm[Hg] [facility] Heart rate 2022-04-16 16:02:00 65 /min [facility] Body height 2022-04-16 16:02:00 154.9 cm [facility] Body weight 2022-04-16 16:02:00 61.1 kg [facility] BMI 2022-04-16 16:02:00 25.45 kg/m2 [facility] Oxygen saturation in Arterial blood by Pulse oximetry 2022-04-16 16:02:00 96 /min [facility] Systolic blood pressure 2021-04-11 22:12:00 144 mm[Hg] [facility] Diastolic blood pressure 2021-04-11 22:12:00 54 mm[Hg] [facility] Heart rate 2021-04-11 22:12:00 95 /min [facility] Body temperature 2021-04-11 22:12:00 36.28 Sammie [facility] Respiratory rate 2021-04-11 22:12:00 20 /min [facility] Oxygen saturation in Arterial blood by Pulse oximetry 2021-04-11 22:12:00 97 /min [facility] Body height 2021-04-11 20:49:00 154.9 cm [facility] Body weight 2021-04-11 20:49:00 67.132 kg [facility] BMI 2021-04-11 20:49:00 27.96 kg/m2 [facility] BMI 2020-03-02 14:51:00 27.85 kg/m2 [facility] Oxygen saturation in Arterial blood by Pulse oximetry 2020-03-02 14:51:00 97 /min [facility] Systolic blood pressure 2020-03-02 14:51:00 125 mm[Hg] [facility] Diastolic blood pressure 2020-03-02 14:51:00 64 mm[Hg] [facility] Heart rate 2020-03-02 14:51:00 84 /min [facility] Respiratory rate 2020-03-02 14:51:00 18 /min [facility] Body height 2020-03-02 14:51:00 154.9 cm [facility] Body weight 2020-03-02 14:51:00 66.86 kg [facility] Systolic blood pressure 2019-12-20 15:11:00 131 mm[Hg] [facility] Diastolic blood pressure 2019-12-20 15:11:00 65 mm[Hg] [facility] Heart rate 2019-12-20 15:11:00 78 /min [facility] Body temperature 2019-12-20 15:11:00 36.61 Sammie [facility] Respiratory rate 2019-12-20 15:11:00 16 /min [facility] Body height 2019-12-20 15:11:00 154.9 cm [facility] Body weight 2019-12-20 15:11:00 65.091 kg [facility] BMI 2019-12-20 15:11:00 27.11 kg/m2 [facility] Systolic blood pressure 2024-09-19 21:00:00 129 mm[Hg] [facility] Diastolic blood pressure 2024-09-19 21:00:00 61 mm[Hg] [facility] Heart rate 2024-09-19 21:00:00 88 /min [facility] Body temperature 2024-09-19 21:00:00 36.67 Sammie [facility] Respiratory rate 2024-09-19 21:00:00 19 /min [facility] Oxygen saturation in Arterial blood by Pulse oximetry 2024-09-19 21:00:00 92 /min [facility] Body height 2024-09-19 17:09:00 157.5 cm [facility] Body weight 2024-09-19 17:09:00 68.493 kg [facility] BMI 2024-09-19 17:09:00 27.62 kg/m2 [facility] Procedures Procedure Date / Time Performed Performing Clinician Source EKG (SCANNED DOCUMENTS) 2024-09-27 17:18:20 Doct or Unassigned, Morven [facility] EKG-12 LEAD 2024-09-19 21:02:20 Branden sylvie [facility] TROPONIN I 2024-09-19 20:05:00 Branden sylvie [facility] TROPONIN I 2024-09-19 20:05:00 Branden [facility] C-REACTIVE PROTEIN 2024-09-19 20:05:00 Aleksandar Elias [facility] MAGNESIUM 2024-09-19 20:05:00 Aleksandar Elias [facility] TROPONIN I 2024-09-19 18:19:00 Branden [facility] COMP. METABOLIC PANEL (69092) 2024-09-19 18:19:00 Branden [facility] TROPONIN I 2024-09-19 18:19:00 Arnulfo Otero [facility] COMP. METABOLIC PANEL (92265) 2024-09-19 18:19:00 [facility]ST 1 VW 2024-09-19 18:11:58 HuArnulfo montaño [facility] XR CHEST 1 VW 2024-09-19 18:11:58 HuArnulfo montaño [facility] CBC WITH DIFF 2024-09-19 17:26:00 [facility]-BNP 2024-09-19 17:26:00 [facility] 2024-09-19 17:26:00 WilliamArnulfo [facility] CBC WITH DIFF 2024-09-19 17:26:00 Arnulfo Otero [facility] INFLUENZA A/B RSV COVID NAAT 2024-09-19 17:20:00 Barnden [facility] INFLUENZA A/B RSV COVID NAAT 2024-09-19 17:20:00 Williamsabra [facility] LAB ONLY COVID INTERPRETATION 2024-09-19 17:20:00 Branden [facility] HB ECG ROUTINE & RHYTHM STRIP 2024-09-19 17:07:15 Branden [facility] HB ECG ROUTINE & RHYTHM STRIP 2024-09-19 16:27:18 Kenneth [facility] HB ECG ROUTINE & RHYTHM STRIP 2024-09-19 16:27:18 Kenneth [facility] LIPID PANEL (30096)(TOTAL CHOLESTEROL, TRIGLYCERIDES, HDL) 2024-08-03 17:39:00 Renee Olivo [facility] POCT HEMOGLOBIN A1C TEST 2024-08-02 20:06:00 [facility]EM[facility]C TEST 2024-08-02 20:06:00 Estiven Olivog [facility] DME/SUPPLY JUSTIFICATION 2024-04-20 19:26:53 Doc bradley Unassigned, Morven [facility] POCT HEMOGLOBIN A1C TEST 2024-03-24 13:16:00 Estiven Olivo [facility] CT, abdomen + pelvis, w/o contrast 2024-03-01 00:00:00 [facility] US TRANSVAGINAL 2024-02-11 00:00:00 [facility]R SPINE THORACIC 3 VW 2023-12-11 14:28:01 Grady Sawyer [facility] MICROALBUMIN URINE 2023-11-30 15:46:00 Sherri Lopez [facility] POCT HEMOGLOBIN A1C TEST 2023-11-30 14:37:00 Juan Jose Lopez [facility] POCT HEMOGLOBIN A1C TEST 2023-07-22 15:32:00 Do Malone [facility] DME/SUPPLY JUSTIFICATION 2023-02-03 05:01:00 Doc bradley Unassigned, Morven [facility] POCT HEMOGLOBIN A1C TEST 2023-01-20 13:48:00 Estiven Olivo dewayne [facility] PATIENT FINANCIAL POLICY 2023-01-20 13:25:25 Doctor Unassigned, Morven [facility] POCT HEMOGLOBIN A1C TEST 2022-04-16 16:04:00 Estiven Olivo [facility] ASSIGNMENT OF BENEFITS 2022-04-16 15:38:44 Docto r Unassigned, Morven [facility] REFERRAL- REQUEST/RESPONSE 2022-02-07 05:01:00 Doctor Unassigned, Morven [facility] CONSENT/REFUSAL FOR DIAGNOSIS AND TREATMENT 2021-04-11 05:01:00 Doctor Unassigned, Morven [facility] CALCIUM 2019-12-20 16:20:00 Jamie Sawyer [facility] CREATINE KINASE 2019-12-20 16:20:00 Jamie Sawyer [facility] MAGNESIUM 2019-12-20 16:20:00 Jamie Sawyer [facility] VITAMIN B12, LEVEL 2019-12-20 16:20:00 Jamie Sawyer [facility] REFERRAL- REQUEST/RESPONSE 2019-10-14 06:01:00 Doctor Unassigned, Morven [facility] Encounters Start Date/Time End Date/Time Encounter Type Admission Type Attending Clinicians Care Facility Care Department Encounter ID Source 2024-10-24 07:30:00 Inpatient GERARDO ARANDA [facility] [id number] [facility] 2024-03-08 08:00:00 Inpatient Salina Currie [facility] RADI [id number] [facility] 2025-02-07 11:00:00 2025-02-07 11:00:00 Outpatient RENEE SNYDER [facility] [id number] [facility] 2024-10-24 16:00:00 2024-10-24 16:00:00 Outpatient PARUL ALDRIDGE [facility] [id number] [facility] 2024-10-19 13:07:00 2024-10-19 13:07:00 Outpatient MICK GERARDO KAT [facility] [id number] [facility] 2024-10-19 09:40:00 2024-10-19 12:29:00 Departed Emergency Room [facility] [id number] [facility] 2024-10-03 00:00:00 2024-10-03 00:00:00 Outpatient PARUL ALDRIDGE [facility] [id number] [facility] 2024-04-20 00:00:00 2024-10-01 07:01:43 Orders Only Doctor Unassigned, Morven Doctor Unassigned, Morven [facility] 1.2.840.114 350.1.13.10 4.2.7.2.686 [id number] [facility] 2024-09-26 18:51:00 2024-09-28 14:20:00 Inpatient TRINI BARRIOS [facility] [id number] [facility] 2024-09-26 18:51:00 2024-09-28 14:20:00 Discharged Inpatient (obs) [facility] [id number] [facility] 2024-09-22 13:00:00 2024-09-22 13:00:00 Outpatient R [facility] [id number] [facility] 2024-09-22 09:30:00 2024-09-22 09:30:00 Outpatient R PARUL CAGLE [facility] [id number] [facility] 2024-09-21 00:00:00 2024-09-21 11:32:48 Telephone Parul Cagle 1.2.840.1 [id number] 3.104.2.7 .3.857659 .8 [id number] [facility] 2024-09-21 00:00:00 2024-09-21 11:19:51 Telephone Aleksandar Elias 1.2.840.1 59768.1.1 3.104.2.7 .3.419107 .8 [id number] [facility] 2024-09-21 00:00:00 2024-09-21 10:55:25 Telephone Aleksandar Elias 1.2.840.1 [id number] 3.104.2.7 .3.148469 .8 [id number] [facility] 2024-09-21 00:00:00 2024-09-21 10:42:23 Telephone Aleksandar Elias 1.2.840.1 11790.1.1 3.104.2.7 .3.006929 .8 [id number] [facility] 2024-09-20 00:00:00 2024-09-20 12:01:29 Telephone Aleksandar Elias 1.2.840.1 63260.1.1 3.104.2.7 .3.029545 .8 [id number] [facility] 2024-09-19 11:10:00 2024-09-19 15:13:00 Emergency Arnulfo Otero 1.2.840.1 [id number] 3.104.2.7 .3.197852 .8 [id number] [facility] 2024-09-19 09:30:00 2024-09-19 10:00:00 Office Visit Parul Cagle 1.2.840.1 55580.1.1 3.104.2.7 .3.910476 .8 [id number] [facility] 2024-09-19 09:30:00 2024-09-19 09:30:00 Outpatient R PARUL CAGLE [facility] [id number] [facility] 2024-09-19 09:30:00 2024-09-19 09:30:00 Outpatient R PARUL CAGLE [facility] [id number] [facility] 2024-09-19 00:00:00 2024-09-19 00:00:00 Travel 1.2.840.1 62361.1.1 3.104.2.7 .3.703977 .8 1.2.840.114 350.1.13.10 4.2.7.3.698 [id number] [facility] 2024-09-11 00:00:00 2024-09-12 09:54:44 Telephone Parul Cagle 1.2.840.1 00232.1.1 3.104.2.7 .3.334588 .8 [id number] [facility] 2024-08-31 09:00:00 2024-08-31 09:00:00 Outpatient LEVON TAN [facility] [id number] [facility] 2024-08-03 11:45:00 2024-08-03 16:17:54 Band Tumbler Visit Renee Olivo, Ang - Db 1.2.840.1 50993.1.1 3.104.2.7 .3.858255 .8 [id number] [facility] 2024-08-03 11:45:00 2024-08-03 11:45:00 Outpatient R OLIVO [facility] [id number] [facility] 2024-08-02 14:00:00 2024-08-02 16:23:45 Outpatient R GEOVANI [facility] [id number] [facility] 2024-08-02 14:00:00 2024-08-02 16:23:45 Office Visit Renee Olivo 1.2.840.1 40674.1.1 3.104.2.7 .3.203405 .8 [id number] [facility] 2024-08-02 00:00:00 2024-08-02 00:00:00 Travel 1.2.840.1 55782.1.1 3.104.2.7 .3.295528 .8 1.2.840.114 350.1.13.10 4.2.7.3.698 084.8 [id number] [facility] 2024-07-15 00:00:00 2024-07-18 14:24:38 Refill Geovani Estivendewayne 1.2.840.1 72285.1.1 3.104.2.7 .3.537481 .8 [id number] [facility] 2024-06-23 00:00:00 2024-06-23 15:03:32 Refill [facility]ani [facility] 1.2840.114 350.1.13.10 4.2.7.2.686 [id number] [facility] 2024-03-21 00:00:00 2024-03-25 10:19:02 Telephone [facility]ani [facility] 1.2840.114 350.1.13.10 4.2.7.2.686 [id number] [facility] 2024-03-23 00:00:00 2024-03-25 09:15:56 Telephone [facility] 1.2.840.114 350.1.13.10 4.2.7.2.686 [id number] [facility] 2024-03-24 08:30:00 2024-03-24 09:06:57 Outpatient R OLIVO [facility] [id number] [facility] 2024-03-24 08:30:00 2024-03-24 09:06:57 Office Visit Geovani [facility] ANTELMO?[facility] 1..840.114 350.1.13.10 4.2.7.2.686 [id number] 220 [id number] [facility] 2024-03-14 00:00:00 2024-03-15 09:24:56 Telephone Geovani [facility] ANTELMO?[facility] 1.2840.114 350.1.13.10 4.2.7.2.686 [id number] [facility] 2024-03-11 15:00:00 2024-03-11 15:00:00 Outpatient R RACHEL [facility] [id number] [facility] 2024-03-11 00:00:00 2024-03-11 14:42:45 Telephone Geovani [facility] ANTELMO?[facility] 1.2.840.114 350.1.13.10 4.2.7.2.686 [id number] [facility] 2024-03-10 00:00:00 2024-03-10 11:13:05 Telephone Rachel [facility] ANTELMO?[facility] 1..840.114 350.1.13.10 4.2.7.2.686 [id number] 220 [id number] [facility] 2024-03-07 00:00:00 2024-03-08 13:48:36 Telephone Renee Olivo [facility] 1..840.114 350.1.13.10 4.2.7.2.686 [id number] [facility] 2024-03-01 10:22:00 2024-03-01 10:22:00 Outpatient Salina Jasso [facility] [id number] [facility] 2024-03-01 00:00:00 2024-03-01 00:00:00 Salina Jasso MD: [address], [facility] [address], [place] [address] , Ph. [facility] - GC_GCBZW_[facility]* [id number] [facility] 2024-02-17 11:08:00 2024-02-17 11:08:00 Outpatient CHOCO [facility] [id number] [facility] 2024-02-11 00:00:00 2024-02-11 00:00:00 Salina Jasso MD: [address], [place] [address] , Ph. [facility] - GC_GCBZW_[facility]* [id number] [facility] 2024-02-10 09:30:00 2024-02-10 09:30:00 Outpatient R [facility] [id number] [facility] 2024-02-06 00:00:00 2024-02-09 14:54:04 Telephone Sherri Lopez [facility] 1..840.114 350.1.13.10 4.2.7.2.686 [id number] [facility] 2024-02-08 00:00:00 2024-02-08 00:00:00 ALEJANDRA Thakur: [address], [address], [place] [address] , Ph. [facility] - GC_GCBZW_La lisa Edwards* [id number] [facility] 2023-12-02 00:00:00 2024-01-02 18:04:39 Patient Secure Sherri Lopez [facility] 1.840.114 350.1.13.10 4.2.7.2.686 [id number] [facility] 2023-12-11 09:12:47 2023-12-11 23:59:00 Hospital Encounter [facility]o [facility] ANTELMO?[facility] 1.84.114 350.1.13.10 4.2.7.2.686 [id number] [facility] 2023-12-11 08:20:00 2023-12-11 11:50:39 Outpatient R JAMIE SAWYER HOWARD [facility] [id number] [facility] 2023-12-11 08:20:00 2023-12-11 11:50:39 Office Visit Beto [facility] 1.284.114 350.1.13.10 4.2.7.2.686 [id number] [facility] 2023-12-11 00:00:00 2023-12-11 00:00:00 Telephone Beto [facility]ELMO[facility] 1.84.114 350.1.13.10 4.2.7.2.686 [id number] [facility] 2023-12-02 10:10:00 2023-12-02 10:10:00 Outpatient DANELLE GERARDO KAT [facility] [id number] [facility] 2023-11-30 11:30:00 2023-11-30 11:45:00 Band Tumbler Visit Lab, Sherri Victor [facility] BU[facility] 1.2.840.114 350.1.13.10 4.2.7.2.686 [id number] [facility] 2023-11-30 11:30:00 2023-11-30 11:30:00 Outpatient SHERRI STALLINGS [facility] [id number] [facility] 2023-11-30 10:00:00 2023-11-30 10:28:54 Office Visit Sherri Lopez [facility] 1.2.840.114 350.1.13.10 4.2.7.2.686 [id number] [facility] 2023-11-18 23:29:00 2023-11-19 19:15:00 observatio n encounter [facility] [id number] [facility] [id number] 2023-11-18 23:29:00 2023-11-19 19:15:00 Inpatient MICK ATILIO TRINI [facility] [id number] [facility] 2023-10-06 00:00:00 2023-10-06 00:00:00 Refill Renee Olivo [facility] 1.2.840.114 350.1.13.10 4.2.7.2.686 [id number] [facility] 2023-07-22 09:30:00 2023-07-22 09:58:24 Outpatient R DO MALONE [facility] [id number] [facility] 2023-07-22 09:30:00 2023-07-22 09:58:24 Office Visit Do Malone [facility] ANTELMO?[facility] 1.2.840.114 350.1.13.10 4.2.7.2.686 [id number] [facility] 2023-07-06 00:00:00 2023-07-06 00:00:00 Telephone [facility] 1.840.114 350.1.13.10 4.2.7.2.686 [id number] [facility] 2023-06-13 00:00:00 2023-06-13 00:00:00 Outpatient GC_GCBZW_Ka diyuria_S [facility] [id number] [facility] 2023-02-06 00:00:00 2023-02-06 00:00:00 Telephone [facility] 1.840.114 350.1.13.10 4.2.7.2.686 [id number] [facility] 2023-02-03 00:00:00 2023-02-03 00:00:00 Orders Only Doctor Unassigned, Morven [facility] 1.84.114 350.1.13.10 4.2.7.2.686 [id number] [facility] 2023-02-02 00:00:00 2023-02-02 00:00:00 [facility]phone [facility] 1..840.114 350.1.13.10 4.2.7.2.686 [id number] 220 [id number] [facility] 2023-01-27 00:00:00 2023-01-27 00:00:00 Telephone Geovani [facility] ANTEL[facility] 1.840.114 350.1.13.10 4.2.7.2.686 [id number] 220 [id number] [facility] 2023-01-27 00:00:00 2023-01-27 00:00:00 Telephone Geovani [facility] ANTELMO?[facility] 1.2840.114 350.1.13.10 4.2.7.2.686 [id number] 220 [id number] [facility] 2023-01-20 09:30:00 2023-01-20 09:45:00 Band Tumbler Visit Lab, Tato Coles [facility] [place] 1.840.114 350.1.13.10 4.2.7.2.686 [id number] [facility] 2023-01-20 08:30:00 2023-01-20 09:21:40 Outpatient R [facility] [id number] [facility] 2023-01-20 08:30:00 2023-01-20 09:21:40 Office Visit [facility] 1.840.114 350.1.13.10 4.2.7.2.686 [id number] [facility] 2023-01-20 00:00:00 2023-01-20 00:00:00 Orders Only Doctor Unassigned, [place] [facility] 1.840.114 350.1.13.10 4.2.7.2.686 [id number] [facility] 2023-01-10 00:00:00 2023-01-10 00:00:00 Refill Geovani [facility] ANTELMO?[facility] MED[facility] OFF[facility] 1.840.114 350.1.13.10 4.2.7.2.686 [id number] [facility] 2022-10-21 10:00:00 2022-10-21 10:00:00 Outpatient R [facility] [id number] [facility] 2022-09-26 00:00:00 2022-09-26 00:00:00 Outpatient FERGUSON[place] [id number] [facility] 2022-08-25 00:00:00 2022-08-25 00:00:00 Outpatient FERGUSON_JO HN [place] [id number] [facility] 2022-07-15 09:00:00 2022-07-15 09:00:00 Outpatient JAMIE GREENE [facility] [id number] [facility] 2022-07-01 09:00:00 2022-07-01 09:00:00 Outpatient JAMIE GREENE [facility] [id number] [facility] 2022-04-16 10:30:00 2022-04-16 11:54:55 Outpatient R [facility] [id number] [facility] 2022-04-16 10:30:00 2022-04-16 11:54:55 Office Visit Geovani Counts include 234 beds at the [facility] RAEGAN RODRIGES[facility] 1..840.114 350.1.13.10 4.2.7.2.686 [id number] [facility] 2022-04-16 00:00:00 2022-04-16 00:00:00 Orders Only Doctor Unassigned, [place] [facility] 1..840.114 350.1.13.10 4.2.7.2.686 [id number] [facility] 2022-02-07 00:00:00 2022-02-07 00:00:00 Telephone Olivo, Wentong [facility] 1.2.840.114 350.1.13.10 4.2.7.2.686 [id number] [facility] 2022-02-07 00:00:00 2022-02-07 00:00:00 Orders Only Doctor Unassigned, [place] [facility] 1.2.840.114 350.1.13.10 4.2.7.2.686 [id number] [facility] 2021-10-22 10:29:00 2021-10-22 10:29:00 Outpatient CHOCO [facility]O [facility] [id number] [facility] 2021-04-11 15:30:00 2021-04-11 15:30:00 Outpatient MONICA PIZANO [facility] [id number] [facility] 2021-04-11 14:16:53 2021-04-11 15:16:53 Nurse Visit Therapy, Adc Covid Monica Donaldson [facility] 1.2.840.114 350.1.13.10 4.2.7.2.686 [id number] [facility] 2021-04-11 00:00:00 2021-04-11 00:00:00 Orders Only Doctor Unassigned, [place] [facility] 1.2.840.114 350.1.13.10 4.2.7.2.686 [id number] [facility] 2020-05-29 09:20:00 2020-05-29 09:20:00 Outpatient JAMIE [facility]ENE [facility] [id number] [facility] 2020-05-07 09:20:00 2020-05-07 09:20:00 Outpatient JAMIE GREENE [facility] [id number] [facility] 2020-04-24 10:40:00 2020-04-24 10:40:00 Outpatient JAMIE GREENE [facility] [id number] [facility] 2020-04-09 00:00:00 2020-04-09 00:00:00 Telephone Jamie Sawyer [facility] Professio nal Building 1.2.840.114 350.1.13.10 4.2.7.2.686 [id number] 2020-04-09 00:00:00 2020-04-09 00:00:00 [facility] 1.2.840.114 350.1.13.10 4.2.7.2.686 [id number] [facility] 2020-03-02 09:32:12 2020-03-02 12:45:11 Office Visit Jamie Sawyer [facility] Building 1.2.840.114 350.1.13.10 4.2.7.2.686 [id number] [facility] 2020-03-02 09:40:00 2020-03-02 09:40:00 Outpatient JAMIE GREENE [facility] [id number] [facility] 2020-02-27 14:00:00 2020-02-27 14:00:00 Outpatient ERIKA Yuan [facility] [id number] [facility] 2020-02-24 10:00:00 2020-02-24 10:00:00 Outpatient ERIKA Yuan [facility] [id number] [facility] 2019-12-20 11:36:00 2019-12-20 11:51:00 Band Tumbler Visit Pob, Adc Lab Main Jamie Sawyer [facility] Building 1.2.840.114 350.1.13.10 4.2.7.2.686 [id number] [facility] 2019-12-20 09:58:25 2019-12-20 10:38:25 Office Visit Jamie Sawyer [facility] Raegan Goodson [facility] 1.2.840.114 350.1.13.10 4.2.7.2.686 [id number] [facility] 2019-12-20 10:00:00 2019-12-20 10:00:00 Outpatient JAMIE GREENE [facility] [id number] [facility] 2019-12-13 00:00:00 2019-12-13 00:00:00 Telephone Erika Grey [facility] 1.2.840.114 350.1.13.10 4.2.7.2.686 [id number] [facility] 2019-10-14 00:00:00 2019-10-14 00:00:00 Orders Only Doctor Unassigned, [place] [facility] 1.2.840.114 350.1.13.10 4.2.7.2.686 [id number] [facility] 2018-12-09 12:44:00 2018-12-09 12:44:00 Outpatient GERARDO ARANDA [facility] [id number] [facility] 2016-08-05 10:40:00 2016-08-05 10:40:00 Outpatient GERARDO ARANDA [facility] [id number] [facility] 2016-07-25 11:33:00 2016-07-25 11:33:00 Outpatient GERARDO ARANDA [facility] [id number] [facility] 2014-10-09 15:42:00 2014-10-11 13:40:00 Inpatient ER OLIVIA STEVENS [facility] [id number] [facility] 2014-05-24 12:14:00 2014-05-24 12:14:00 Outpatient GERARDO ARANDA [facility] [id number] [facility] 2014-05-18 09:53:00 2014-05-18 13:01:00 Emergency ER RHEA CRUZ [facility] [id number] [facility] 2014-01-05 13:12:00 2014-01-06 15:05:00 Inpatient ER OLIVIA STEVENS [facility] [id number] [facility] 2013-11-14 09:23:00 2013-11-14 09:23:00 Outpatient COLLETTE SÁNCHEZ [facility] [id number] [facility] 2013-10-14 10:03:00 2013-10-14 10:03:00 Outpatient GERARDO ARANDA [facility] [id number] [facility] 2013-08-31 09:59:00 2013-08-31 09:59:00 Outpatient CHOCO NORTH GERARDO [facility] [id number] [facility] 2013-02-21 10:59:00 2013-02-21 10:59:00 Outpatient MARISOL LACEY [facility] [id number] [facility] 2012-08-16 11:40:00 2012-08-21 14:23:00 Inpatient Demarco Chacon [facility] [id number] [facility] 2012-03-11 09:02:00 2012-03-11 09:02:00 Outpatient MARISOL LACEY [facility] [id number] [facility] 2011-07-14 04:51:00 2011-07-14 06:30:00 Emergency ER RHEA CRUZ [facility] [id number] [facility] 2010-11-21 08:15:00 2010-11-21 08:15:00 Outpatient MARISOL LACEY [facility] [id number] [facility] 2010-11-01 10:46:00 2010-11-01 14:05:00 Emergency ER RHEA CRUZ [facility] [id number] [facility] 2009-05-25 12:15:00 2009-05-28 12:53:00 Inpatient MIREYA KRAFT [facility] [id number] [facility] 2008-06-27 13:39:00 2008-06-27 13:39:00 Outpatient CHOCO GERARDO KAT [facility] [id number] [facility] 2007-09-09 15:14:00 2007-09-09 17:00:00 Emergency ER CLARICE JENKINS [facility] [id number] [facility] 2007-09-01 09:32:00 2007-09-01 09:32:00 Outpatient CHOCO TAMMIE LOPEZ [facility] [id number] [facility] 2007-08-20 13:59:00 2007-08-22 14:44:00 Inpatient JORDYN BEARD [facility] [id number] [facility] 2006-12-30 10:32:00 2006-12-30 10:32:00 Outpatient RACHEL CAMILOIN [facility] [id number] [facility] 2006-09-22 10:45:00 2006-09-22 10:45:00 Outpatient CHCOO GERARDO KAT [facility] [id number] [facility] 2006-06-01 14:23:00 2006-06-01 14:23:00 Outpatient GERARDO ARANDA [facility] [id number] [facility] 2005-07-25 08:00:00 2005-07-25 08:00:00 Outpatient AZAEL REYNOLDS [facility] [id number] [facility] 2004-12-20 09:06:00 2004-12-20 09:06:00 Outpatient AZAEL REYNOLDS [facility] [id number] [facility] 2004-11-26 15:46:00 2004-11-26 15:46:00 Outpatient AZAEL REYNOLDS [facility] [id number] [facility] 2004-09-06 09:51:00 2004-09-06 13:00:00 Emergency ER RHEA CRUZ [facility] [id number] [facility] 2004-04-23 13:17:00 2004-04-23 18:40:00 Emergency ER JENNIFER DIGGS [facility] [id number] [facility] 2004-01-30 20:06:00 2004-01-31 13:50:00 Inpatient ER DURAN MICHELE [facility] [id number] [facility] 2003-09-04 02:05:00 2003-09-05 16:40:00 Inpatient ER KACI PARRISH [facility] [id number] [facility] 2001-02-05 07:00:00 2001-02-05 07:00:00 Outpatient RICK CARLSON [facility] [id number] [facility] 2001-01-04 00:09:00 2001-01-04 03:30:00 Emergency ER ARIANA DIAZ [facility] [id number] [facility] 2000-12-13 21:04:00 2000-12-19 12:15:00 Inpatient ER DARRIAN AZAEL [facility] [id number] [facility] 1999-12-07 20:32:00 1999-12-07 22:55:00 Emergency ER TAYA BONILLA [facility] [id number] [facility] Results Test Description Test Time Test Comments Results Result Co mments Source [facility] CtrSerum or plasma creatine kinase MB (CK-MB) measurement by immunoassay (mass/volume)2024-10-19 10:51:00* Test Item Value Reference Range Interpretation Comme nts Creatine Kinase MB (test cod e = 25631-6) 1.6 [facility] CtrSerum or plasma cardiac troponin I panel by high sensitivity apylnb5512-99-49 10:51:00* Test Item Value Reference Range Interpretation Comme nts Troponin T High Sensitivity (test code = 82047-4) 13.7 [facility] CtrSerum or plasma glucose measurement (mass/volume) 2024-10-19 10:47:00* Test Item Value Reference Range Interpretation Comme nts Random Glucose (test code = 2345-7) 248 [facility] CtrSerum or plasma urea nitrogen measurement (mass/volume)2024-10-19 10:47:00* Test Item Value Reference Range Interpretation Comme nts Blood Urea Nitrogen (test co de = 3094-0) 18 [facility] GdlHND0755-14-56 10:47:00* Test Item Value Reference Range Interpretation Comme nts Aspartate Amino Transf (AST/ SGOT) (test code = EVG4371) 14 [facility] CtrBilirubin rnsex8990-68-75 10:47:00* Test Item Value Reference Range Interpretation Comme nts Total Bilirubin (test code = GWT5018) 0.4 [facility] CtrEstimated glomerular filtration rate (GFR) fpacnfzsaoxmq2921-16-67 10:47:00* Test Item Value Reference Range Interpretation Comme [facility] Glomerular Filtration Rate C alc (test code = 922523300) > 60.00 [facility] CtrBUN/creatinine jmale7908-61-98 10:47:00* Test Item Value Reference Range Interpretation Comme nts BUN/Creatinine Ratio (test c ode = 01014315) 25.7 [facility] ZfwJP04582-08-02 10:47:00* Test Item Value Reference Range Interpretation Comme nts Carbon Dioxide Level (test c ode = 86268819) 20 [facility] CtrAnion gap rzlnxylijpj4927-54-31 10:47:00* Test Item Value Reference Range Interpretation Comme nts Anion Gap (test code = 79392861) 16.3 [facility] CtrCalcium jdxus1300-11-92 10:47:00* Test Item Value Reference Range Interpretation Comme nts Calcium Level (test code = 56997667) 9.4 [facility] CtrGlobulin pak5175-62-65 10:47:00* Test Item Value Reference Range Interpretation Comme nts Globulin (test code = 459580379) 2.6 [facility] CtrALT (SGPT) ser/coqa0964-96-27 10:47:00* Test Item Value Reference Range Interpretation Comme nts Alanine Aminotransferase (AL T/SGPT) (test code = 1742-6) 20 [facility] KfgTjojef3070-08-70 10:47:00* Test Item Value Reference Range Interpretation Comme nts Lipase (test code = 746657259) 33 [facility] CtrALP ser/qkyv5499-84-75 10:47:00* Test Item Value Reference Range Interpretation Comme [facility] Total Alkaline Phosphatase ( test code = 6768-6) 121 [facility] CtrCreatine kinase buaofmjwvom0100-28-97 10:47:00* Test Item Value Reference Range Interpretation Comme [facility] Creatine Kinase (test code = 072744711) 30 [facility] UbgW-qxvgv0537-15-05 10:43:00* Test Item Value Reference Range Interpretation Comme [facility] D-Dimer (test code = 634031446) 472 [facility] CtrProthrombin isty5272-03-10 10:38:00* Test Item Value Reference Range Interpretation Comme [facility] Prothrombin Time (test code = 703643455) 10.0 [facility] CtrWhole blood INR olqxbidotox3754-77-18 10:38:00* Test Item Value Reference Range Interpretation Comme [facility] Prothromb Time International Ratio (test code = 64796-9) < 0.94 [facility] CtrActivated partial thromboplastin time (aPTT) in platelet poor plasma by coagulation gxsbk9879-18-20 10:38:00* Test Item Value Reference Range Interpretation Comme [facility] Activated Partial Thrombopla st Time (test code = 50844-1) 26.8 [facility] CtrAbsolute eosinophil hujsw4171-79-89 09:59:00* Test Item Value Reference Range Interpretation Comme nts Eosinophils # (Auto) (test c ode = DQZ9340) 0.22 [facility] CtrRBC xxjbu9822-21-66 09:59:00* Test Item Value Reference Range Interpretation Comme [facility] Red Blood Count (test code = 24464614) 4.80 [facility] HcfGkfroetukp0111-78-71 09:59:00* Test Item Value Reference Range Interpretation Comme [facility] Hematocrit (test code = 63649859) 41.7 [facility] CtrMCV (mean corpuscular volume) determination 2024-10-19 09:59:00* Test Item Value Reference Range Interpretation Comme [facility] Mean Corpuscular Volume (altagracia t code = 61338-3) 86.9 [facility] CtrMean corpuscular hemoglobin (MCH) determination 2024-10-19 09:59:00* Test Item Value Reference Range Interpretation Comme [facility] Mean Corpuscular Hemoglobin (test code = 20177132) 28.1 [facility] (MCHC) zdvwecfxvhlab4655-02-02 09:59:00* Test Item Value Reference Range Interpretation Comme [facility] Mean Corpuscular Hemoglobin Concent (test code = 64095329) 32.4 [facility] CtrRBC distribution width coefficient of variation 2024-10-19 09:59:00* Test Item Value Reference Range Interpretation Comme [facility] Red Cell Distribution Width (test code = 35438537) 14.7 [facility] CtrPlatelet wixlr8282-19-69 09:59:00* Test Item Value Reference Range Interpretation Comme [facility] Platelet Count (test code = 19226818) 293 [facility] CtrMean platelet lnxyrn9678-20-86 09:59:00* Test Item Value Reference Range Interpretation Comme [facility] Mean Platelet Volume (test c ode = 31106119) 10.1 [facility] CtrNeutrophils seg % khn3739-72-61 09:59:00* Test Item Value Reference Range Interpretation Comme [facility] Neutrophils (%) (Auto) (test code = 98975-8) 64.9 [facility] CtrAbsolute immature granulocyte rikrg8124-00-60 09:59:00* Test Item Value Reference Range Interpretation Comme nts Absolute Immature Granulocyt e (auto (test code = 30699-8) 0.07 [facility] CtrBasophil % diezzp0587-38-72 09:59:00* Test Item Value Reference Range Interpretation Comme nts Basophils (%) (Auto) (test c ode = 37691-0) 0.7 [facility] CtrBlood band neutrophils count (number/volume) 2024-10-19 09:59:00* Test Item Value Reference Range Interpretation Comme nts Neutrophils # (Auto) (test c ode = 00407-5) 5.39 [facility] CtrAbsolute lymphocyte kbvkg7956-56-05 09:59:00* Test Item Value Reference Range Interpretation Comme nts Lymphocytes # (Auto) (test c ode = 14768-0) 1.98 [facility] CtrAbsolute basophil ieerf4632-82-06 09:59:00* Test Item Value Reference Range Interpretation Comme nts Basophils # (Auto) (test cod e = 41913913) 0.06 [facility] CtrAbsolute NRBC cltsl2625-14-07 09:59:00* Test Item Value Reference Range Interpretation Comme nts Nucleated Red Blood Cells # (test code = 974832297) 0 [facility] CtrMonitoring of blood bzprxpz8788-98-06 08:28:00* Test Item Value Reference Range Interpretation Comme nts POC Capillary Blood Glucose (Chem) (test code = 765723463) 148 [facility] CtrMonitoring of blood xabbbby0201-95-29 08:28:00* Test Item Value Reference Range Interpretation Comme nts POC Capillary Blood Glucose (Chem) (test code = 104467431) 148 [facility] CtrChloride ubuuogzuivd4456-85-75 05:42:00* Test Item Value Reference Range Interpretation Comme nts Chloride Level (test code = MIB8681) 103 [facility] CtrSerum or plasma urea nitrogen measurement (mass/volume)2024-09-28 05:42:00* Test Item Value Reference Range Interpretation Comme nts Blood Urea Nitrogen (test co de = 3094-0) 26 [facility] CtrOsmolality ipt2625-33-42 05:42:00* Test Item Value Reference Range Interpretation Comme nts Serum Osmolality (test code = EDO4754) 282 [facility] CtrCreatinine wqyzs3369-32-25 05:42:00* Test Item Value Reference Range Interpretation Comme nts Creatinine (test code = 722304698) 0.76 [facility] CtrEstimated glomerular filtration rate (GFR) tmteiwyndbehs1485-95-78 05:42:00* Test Item Value Reference Range Interpretation Comme [facility] Glomerular Filtration Rate C alc (test code = 470795544) > 60.00 [facility] CtrBUN/creatinine sqmoq9100-82-31 05:42:00* Test Item Value Reference Range Interpretation Comme [facility] BUN/Creatinine Ratio (test c ode = 01928741) 34.2 [facility] CtrBody fluid potassium lxcoukdofmm3741-95-76 05:42:00* Test Item Value Reference Range Interpretation Comme nts Potassium Level (test code = 2821-7) 4.5 [facility] UieNM74026-23-57 05:42:00* Test Item Value Reference Range Interpretation Comme nts Carbon Dioxide Level (test c ode = 08641345) 20 [facility] CtrAnion gap jkdltzfuqwh1340-60-96 05:42:00* Test Item Value Reference Range Interpretation Comme nts Anion Gap (test code = 67343021) 18.5 [facility] CtrCalcium udyfl7773-22-66 05:42:00* Test Item Value Reference Range Interpretation Comme nts Calcium Level (test code = 49872037) 8.9 [facility] CtrAbsolute eosinophil rfpoh0919-34-90 04:58:00* Test Item Value Reference Range Interpretation Comme [facility] Eosinophils # (Auto) (test c ode = QZV0214) 0.15 [facility] CtrRBC fzntq8502-33-88 04:58:00* Test Item Value Reference Range Interpretation Comme nts Red Blood Count (test code = 32059263) 5.07 [facility] XjwGjvdewbzhp3472-27-58 04:58:00* Test Item Value Reference Range Interpretation Comme nts Hematocrit (test code = 13310709) 44.6 [facility] CtrMCV (mean corpuscular volume) determination 2024-09-28 04:58:00* Test Item Value Reference Range Interpretation Comme [facility] Mean Corpuscular Volume (altagracia t code = 36048-7) 88.0 [facility] CtrMean corpuscular hemoglobin (MCH) determination 2024-09-28 04:58:00* Test Item Value Reference Range Interpretation Comme [facility] Mean Corpuscular Hemoglobin (test code = 74346334) 27.6 [facility] CtrMean corpuscular hemoglobin concentration (MCHC) bervgrubqkmkn6235-52-30 04:58:00* Test Item Value Reference Range Interpretation Comme [facility] Mean Corpuscular Hemoglobin Concent (test code = 26160313) 31.4 [facility] CtrRBC distribution width coefficient of variation 2024-09-28 04:58:00* Test Item Value Reference Range Interpretation Comme [facility] Red Cell Distribution Width (test code = 23567042) 15.0 [facility] CtrPlatelet cnijz3575-82-96 04:58:00* Test Item Value Reference Range Interpretation Comme [facility] Platelet Count (test code = 15966094) 276 [facility] CtrMean platelet ahngfd1140-94-07 04:58:00* Test Item Value Reference Range Interpretation Comme [facility] Mean Platelet Volume (test c ode = 39388257) 10.0 [facility] CtrNeutrophils seg % gsb7480-53-23 04:58:00* Test Item Value Reference Range Interpretation Comme [facility] Neutrophils (%) (Auto) (test code = 54559-7) 55.4 [facility] CtrAbsolute immature granulocyte srjjm2489-37-70 04:58:00* Test Item Value Reference Range Interpretation Comme [facility] Absolute Immature Granulocyt e (auto (test code = 37525-0) 0.17 [facility] CtrBasophil % esxjys4768-52-01 04:58:00* Test Item Value Reference Range Interpretation Comme nts Basophils (%) (Auto) (test c ode = 43131-3) 0.4 [facility] CtrBlood band neutrophils count (number/volume) 2024-09-28 04:58:00* Test Item Value Reference Range Interpretation Comme nts Neutrophils # (Auto) (test c ode = 82945-3) 5.04 [facility] CtrAbsolute lymphocyte rpmys5026-15-82 04:58:00* Test Item Value Reference Range Interpretation Comme nts Lymphocytes # (Auto) (test c ode = 14651-9) 3.09 [facility] CtrAbsolute basophil cplgx4793-56-17 04:58:00* Test Item Value Reference Range Interpretation Comme nts Basophils # (Auto) (test cod e = 07440288) 0.04 [facility] CtrAbsolute NRBC gwxga2447-39-60 04:58:00* Test Item Value Reference Range Interpretation Comme nts Nucleated Red Blood Cells # (test code = 082582159) 0 [facility] CtrEKG (SCANNED DOCUMENTS)2024-09-27 17:18:20Ordered by an unspecified provider.[facility] antibody wwcpf2387-10-76 05:15:00* Test Item Value Reference Range Interpretation Comme nts Parainfluenza Type 1 (PCR) ( test code = 818125053) Not Detected [facility] CtrParainfluenza virus 2 antibody mhwom3323-27-52 05:15:00* Test Item Value Reference Range Interpretation Comme nts Parainfluenza Type 2 (PCR) ( test code = 702294861) Not Detected [facility] [facility] CtrParainfluenza virus 3 RNA detection in isolate by probe and target amplification ktiskq5590-32-39 05:15:00* Test Item Value Reference Range Interpretation Comme nts Parainfluenza Type 3 (PCR) ( test code = 60007-5) Not Detected [facility] CtrParainfluenza virus 4 RNA detection by probe and target amplification yrjuzw7239-60-16 05:15:00* Test Item Value Reference Range Interpretation Comme nts Parainfluenza Type 4 (PCR) ( test code = 61968-2) Not Detected [facility] CtrRespiratory syncytial virus (RSV) B detection by KDJ8794-79-28 05:15:00* Test Item Value Reference Range Interpretation Comme nts Resp Syncytial Virus Type B (PCR) (test code = BOV3918) Not Detected [facility] CtrMycoplasma pneumoniae antibody cbgmz8176-20-07 05:15:00* Test Item Value Reference Range Interpretation Comme nts Mycoplasma pneumoniae (PCR) (test code = 02025-5) Not Detected [facility] CtrAdenovirus antibody xzoiu4328-61-59 05:15:00* Test Item Value Reference Range Interpretation Comme nts Adenovirus (PCR) (test code = 11184-2) Not Detected [facility] CtrCoronavirus antibody vnoqn0790-81-89 05:15:00* Test Item Value Reference Range Interpretation Comme nts Coronavirus (PCR) (test code = 5099-7) Not Detected [facility] RNA detection by probe and target amplification zpyhad3616-91-66 05:15:00* Test Item Value Reference Range Interpretation Comme nts Human Metapneumovirus (PCR) (test code = 16249-0) Not Detected [facility] CtrRhinovirus and Enterovirus RNA detection by probe and target amplification dwkuhu5112-46-12 05:15:00* Test Item Value Reference Range Interpretation Comme [facility] Enterovirus/Rhinovirus (PCR) (test code = 96476-3) Not Detected [facility] CtrNasopharyngeal specimen influenza virus A RNA detection by probe and target amplification xosoge8392-06-98 05:15:00* Test Item Value Reference Range Interpretation Comme [facility] Influenza Type A (RT-PCR) (t est code = 38944-4) Not Detected [facility] CtrInfluenza A virus H1N1 RNA fzdbeiohe7136-44-78 05:15:00* Test Item Value Reference Range Interpretation Comme [facility] Influenza Type A (H1N1/09) ( PCR) (test code = 11463-6) Not Detected [facility] CtrInfluenza A H3 virus RNA detection by probe and target amplification method in cuture chrfeyn4251-27-57 05:15:00* Test Item Value Reference Range Interpretation Comme nts Influenza Type A (H3) (PCR) (test code = 08625-0) Not Detected [facility] CtrNasopharyngeal specimen influenza virus B RNA detection by probe and target amplification fexaen3108-85-47 05:15:00* Test Item Value Reference Range Interpretation Comme nts Influenza Type B (RT-PCR) (t est code = 33717-7) Not Detected [facility] CtrParainfluenza virus 1 antibody nvfto9195-96-34 05:15:00* Test Item Value Reference Range Interpretation Comme nts Parainfluenza Type 1 (PCR) ( test code = 303451611) Not Detected [facility] CtrParainfluenza virus 2 antibody qbwoe6979-62-06 05:15:00* Test Item Value Reference Range Interpretation Comme nts Parainfluenza Type 2 (PCR) ( test code = 675030822) Not Detected [facility] CtrParainfluenza virus 3 RNA detection in isolate by probe and target amplification aaycug5164-06-23 05:15:00* Test Item Value Reference Range Interpretation Comme nts Parainfluenza Type 3 (PCR) ( test code = 93403-5) Not Detected [facility] CtrParainfluenza virus 4 RNA detection by probe and target amplification onmnve4261-78-19 05:15:00* Test Item Value Reference Range Interpretation Comme nts Parainfluenza Type 4 (PCR) ( test code = 22505-2) Not Detected [facility] HospitalRes[facility] syncytial virus (RSV) B detection by CRJ1923-15-64 05:15:00* Test Item Value Reference Range Interpretation Comme nts Resp Syncytial Virus Type B (PCR) (test code = DFE2604) Not Detected [facility] CtrMycoplasma pneumoniae antibody ykjsa5123-49-33 05:15:00* Test Item Value Reference Range Interpretation Comme nts Mycoplasma pneumoniae (PCR) (test code = 68986-7) Not Detected [facility] CtrAdenovirus antibody ugtsu9398-01-89 05:15:00* Test Item Value Reference Range Interpretation Comme nts Adenovirus (PCR) (test code = 11289-2) Not Detected [facility] CtrCoronavirus antibody iwxlk3233-60-74 05:15:00* Test Item Value Reference Range Interpretation Comme nts Coronavirus (PCR) (test code = 5099-7) Not Detected [facility] CtrHuman metapneumovirus (hMPV) RNA detection by probe and target amplification eswbpd4547-52-50 05:15:00* Test Item Value Reference Range Interpretation Comme nts Human Metapneumovirus (PCR) (test code = 93889-2) Not Detected [facility] CtrRhinovirus and Enterovirus RNA detection by probe and target amplification kgvhwz8391-34-87 05:15:00* Test Item Value Reference Range Interpretation Comme nts Enterovirus/Rhinovirus (PCR) (test code = 44699-6) Not Detected [facility] CtrNasopharyngeal specimen influenza virus A RNA detection by probe and target amplification ezyjcn0413-43-28 05:15:00* Test Item Value Reference Range Interpretation Comme [facility] Influenza Type A (RT-PCR) (t est code = 85460-0) Not Detected [facility] CtrInfluenza A virus H1N1 RNA rzwqgcfaq2670-01-99 05:15:00* Test Item Value Reference Range Interpretation Comme [facility] Influenza Type A (H1N1/09) ( PCR) (test code = 86191-9) Not Detected [facility] CtrInfluenza A H3 virus RNA detection by probe and target amplification method in cuture cnmpend6018-10-85 05:15:00* Test Item Value Reference Range Interpretation Comme [facility] Influenza Type A (H3) (PCR) (test code = 46909-2) Not Detected [facility] CtrNasopharyngeal specimen influenza virus B RNA detection by probe and target amplification ireqzl4096-55-25 05:15:00* Test Item Value Reference Range Interpretation Comme [facility] Influenza Type B (RT-PCR) (t est code = 35767-3) Not Detected [facility] CtrSerum or plasma thyroid stimulating hormone (TSH) pcfoonjwqmz0329-25-76 04:56:00* Test Item Value Reference Range Interpretation Comme nts Thyroid Stimulating Hormone (TSH) (test code = 3016-3) 0.34 [facility] WijO21554-93-79 04:56:00* Test Item Value Reference Range Interpretation Comme nts Thyroxine (T4) (test code = 05783220) 6.8 [facility] CtrSerum or plasma thyroid stimulating hormone (TSH) sunbrhwidbh1686-00-63 04:56:00* Test Item Value Reference Range Interpretation Comme nts Thyroid Stimulating Hormone (TSH) (test code = 3016-3) 0.34 [facility] AdcH26936-08-45 04:56:00* Test Item Value Reference Range Interpretation Comme nts Thyroxine (T4) (test code = 27704281) 6.8 [facility] CtrSpecific gravity of Urine by Automated test strip 2024-09-27 03:37:00* Test Item Value Reference Range Interpretation Comme nts Urine Specific [place] (test code = 64187-7) 1.015 [facility] CtrSpecific gravity of Urine by Automated test strip 2024-09-27 03:37:00* Test Item Value Reference Range Interpretation Comme nts Urine Specific [place] (test code = 43090-3) 1.015 [facility] CtrRBC count ur idle6979-15-01 03:29:00* Test Item Value Reference Range Interpretation Comme nts Urine RBC (test code = 798-9) 0-2 [facility] CtrUrine examination for white blood cells (WBC) 2024-09-27 03:29:00* Test Item Value Reference Range Interpretation Comme nts Urine WBC (test code = 171999643) 0-2 [facility] CtrAutomated epithelial cells count in urine sediment (number/area)2024-09-27 03:29:00* Test Item Value Reference Range Interpretation Comme nts Urine Epithelial Cells (test code = 24409-7) 0-2 [facility] CtrBacteria detection in urine sediment by light jkrqqzvtsn0012-08-41 03:29:00* Test Item Value Reference Range Interpretation Comme nts Urine Bacteria (test code = 32881-9) None Seen [facility] CtrUrine casts detection by automated method 2024-09-27 03:29:00* Test Item Value Reference Range Interpretation Comme nts Urine Casts (test code = 61376-1) 0-2 [facility] CtrRBC count ur nqhd1497-89-43 03:29:00* Test Item Value Reference Range Interpretation Comme nts Urine RBC (test code = 798-9) 0-2 [facility] CtrUrine examination for white blood cells (WBC) 2024-09-27 03:29:00* Test Item Value Reference Range Interpretation Comme nts Urine WBC (test code = 535310426) 0-2 [facility] CtrAutomated epithelial cells count in urine sediment (number/area)2024-09-27 03:29:00* Test Item Value Reference Range Interpretation Comme nts Urine Epithelial Cells (test code = 30958-2) 0-2 [facility] CtrBacteria detection in urine sediment by light ktxxxtopey3266-81-47 03:29:00* Test Item Value Reference Range Interpretation Comme nts Urine Bacteria (test code = 34574-3) None Seen [facility] CtrUrine casts detection by automated method 2024-09-27 03:29:00* Test Item Value Reference Range Interpretation Comme nts Urine Casts (test code = 99283-3) 0-2 [facility] CtrColor of Urine by Ijav7632-29-41 03:24:00* Test Item Value Reference Range Interpretation Comme nts Urine Color (test code = 01231-9) Yellow [facility] CtrAppearance of Vzjte8224-01-63 03:24:00* Test Item Value Reference Range Interpretation Comme nts Urine Appearance (test code = 5767-9) Clear [facility] HospitalU[facility] glucose ocprifdvk0653-30-41 03:24:00* Test Item Value Reference Range Interpretation Comme nts Urine Glucose (UA) (test code = 2349-9) 3+ (200-600 mg/dL) [facility] CtrBilirubin zo3949-96-44 03:24:00* Test Item Value Reference Range Interpretation Comme nts Urine Bilirubin (test code = 096288940) Negative [facility] CtrKetones gj5924-49-48 03:24:00* Test Item Value Reference Range Interpretation Comme nts Urine Ketones (test code = 68517037) 1+(SMALL) [facility] CtrUrine blood yxmqcjyhb6004-84-24 03:24:00* Test Item Value Reference Range Interpretation Comme nts Urine Blood (test code = 539904-1) Negative [facility] CtrpH yu4964-06-89 03:24:00* Test Item Value Reference Range Interpretation Comme nts Urine pH (test code = 2756-5) 5.000 [facility] CtrProtein vw2050-39-66 03:24:00* Test Item Value Reference Range Interpretation Comme nts Urine Protein (test code = 84645657) Negative [facility] CtrUrobilinogen, urine, ug8464-88-49 03:24:00* Test Item Value Reference Range Interpretation Comme nts Urine Urobilinogen (test cod e = 862556155) 1.0 [facility] CtrUrine nitrate nojleljqs7035-44-32 03:24:00* Test Item Value Reference Range Interpretation Comme nts Urine Nitrate (test code = 92887-5) Negative [facility] HospitalU[facility] leukocyte esterase agjxdtiiy2027-41-78 03:24:00* Test Item Value Reference Range Interpretation Comme [facility] Urine Leukocyte Esterase (te st code = 667303-1) Negative [facility] CtrColor of Urine by Xzys2002-69-93 03:24:00* Test Item Value Reference Range Interpretation Comme nts Urine Color (test code = 42139-7) Yellow [facility] CtrAppearance of Rmntk8170-40-03 03:24:00* Test Item Value Reference Range Interpretation Comme nts Urine Appearance (test code = 5767-9) Clear [facility] HospitalU[facility] glucose bkwzbxvlh7868-96-35 03:24:00* Test Item Value Reference Range Interpretation Comme nts Urine Glucose (UA) (test code = 2349-9) 3+ (200-600 mg/dL) [facility] CtrBilirubin lv3541-74-41 03:24:00* Test Item Value Reference Range Interpretation Comme nts Urine Bilirubin (test code = 802776747) Negative [facility] CtrKetones qz0991-53-76 03:24:00* Test Item Value Reference Range Interpretation Comme nts Urine Ketones (test code = 78299760) 1+(SMALL) [facility] CtrUrine blood ilogjjasv4315-41-16 03:24:00* Test Item Value Reference Range Interpretation Comme nts Urine Blood (test code = 909904-4) Negative [facility] CtrpH fg7424-13-70 03:24:00* Test Item Value Reference Range Interpretation Comme nts Urine pH (test code = 2756-5) 5.000 [facility] CtrProtein uh2377-69-59 03:24:00* Test Item Value Reference Range Interpretation Comme nts Urine Protein (test code = 68465439) Negative [facility] CtrUrobilinogen, urine, xb5654-59-06 03:24:00* Test Item Value Reference Range Interpretation Comme nts Urine Urobilinogen (test cod e = 637036735) 1.0 [facility] CtrUrine nitrate hpnycwgrm8020-30-02 03:24:00* Test Item Value Reference Range Interpretation Comme nts Urine Nitrate (test code = 29339-6) Negative [facility] CtrUrine leukocyte esterase lnwblccat7133-15-84 03:24:00* Test Item Value Reference Range Interpretation Comme nts Urine Leukocyte Esterase (te st code = 197143-1) Negative [facility] CtrHemoglobin C2e5838-88-62 23:07:00* Test Item Value Reference Range Interpretation Comme nts Hemoglobin A1c (test code = 34999-5) 9.2 [facility] CtrHemoglobin D3c6352-83-31 23:07:00* Test Item Value Reference Range Interpretation Comme nts Hemoglobin A1c (test code = 67848-2) 9.2 [facility] DykZexqitkkvv4690-65-78 19:11:00* Test Item Value Reference Range Interpretation Comme nts Phosphorus Level (test code = UOO3876) 3.0 [facility] KgbDubocjlze8373-70-50 19:11:00* Test Item Value Reference Range Interpretation Comme nts Magnesium Level (test code = 09196574) 2.1 [facility] SnhStodxcbath1683-72-29 19:11:00* Test Item Value Reference Range Interpretation Comme nts Phosphorus Level (test code = SKJ7683) 3.0 [facility] ZnbYuityokqo4664-36-07 19:11:00* Test Item Value Reference Range Interpretation Comme nts Magnesium Level (test code = 63311276) 2.1 [facility] CtrNT-proBNP ppswxnbgpqy5542-70-36 17:35:00* Test Item Value Reference Range Interpretation Comme nts BQ-Lkn-D-Type Natriuretic Pe ptide (test code = 566047539) 274 [facility] CtrSerum or plasma creatine kinase MB (CK-MB) measurement by immunoassay (mass/volume)2024-09-26 17:33:00* Test Item Value Reference Range Interpretation Comme nts Creatine Kinase MB (test cod e = 07224-3) 2.5 [facility] CtrSerum or plasma cardiac troponin I panel by high sensitivity yhgypx9846-77-37 17:33:00* Test Item Value Reference Range Interpretation Comme nts Troponin T High Sensitivity (test code = 31591-0) 9.7 [facility] CtrBilirubin dwdue7475-15-10 17:31:00* Test Item Value Reference Range Interpretation Comme nts Total Bilirubin (test code = EVT6387) 0.4 [facility] BlxXHK9033-38-12 17:31:00* Test Item Value Reference Range Interpretation Comme nts Aspartate Amino Transf (AST/ SGOT) (test code = AUQ2406) 16 [facility] CtrGlobulin yug6887-39-60 17:31:00* Test Item Value Reference Range Interpretation Comme nts Globulin (test code = 586724258) 3.2 [facility] CtrALT (SGPT) ser/jjnj8041-77-06 17:31:00* Test Item Value Reference Range Interpretation Comme nts Alanine Aminotransferase (AL T/SGPT) (test code = 1742-6) 19 [facility] CtrALP ser/bhee6283-70-12 17:31:00* Test Item Value Reference Range Interpretation Comme nts Total Alkaline Phosphatase ( test code = 6768-6) 129 [facility] CtrCreatine kinase wbcqgibnqax8270-34-82 17:31:00* Test Item Value Reference Range Interpretation Comme nts Creatine Kinase (test code = 211541407) 68 [facility] CtrProthrombin yrhc5645-58-53 17:28:00* Test Item Value Reference Range Interpretation Comme nts Prothrombin Time (test code = 154839638) 9.9 [facility] CtrWhole blood INR rdehjpdwxop8494-24-85 17:28:00* Test Item Value Reference Range Interpretation Comme nts Prothromb Time International Ratio (test code = 67932-5) < 0.94 [facility] CtrActivated partial thromboplastin time (aPTT) in platelet poor plasma by coagulation hvlsp6506-61-11 17:28:00* Test Item Value Reference Range Interpretation Comme nts Activated Partial Thrombopla st Time (test code = 98923-3) 26.5 [facility] VgbZzseckbdw5175-85-94 16:04:55* Test Item Value Reference Range Interpretation Comme nts MAGNESIUM (test code = 5338040837) 2.0 mg/dL 1.7-2.4 Lab Interpretation (test cod e = 19766-2) Normal [facility] HospitalC-Reactive Iiiaujg3968-42-36 14:58:44* Test Item Value Reference Range Interpretation Comme nts CRP (test code = 8639753672) <=1.0 Lab Interpretation (test cod e = 20357-7) Normal [facility] O2895-37-02 20:46:20* Test Item Value Reference Range Interpretation Comme nts TROPONIN I (test code = 5886532396) <=0.034 WAYLON (test code = WAYLON) Reference (Normal) Range (defined by the 99th percentile reference limit): <= 0.034 ng/mL Note: Cardiac troponin begins to rise 3-4 hours after the onset of ischemia. Repeat in 4-6 hours if the sample was drawn within 3-4 hours of the onset of the symptom and found normal. Diagnosis of myocardial injury is made with acute changes in cTn concentrations with at least one serial sample above the 99th percentile upper reference limit (URL), taken together with the patient's clinical presentation. Biotin has been reported to cause a negative bias, interpret results relative to patient's use of biotin. Lab Interpretation (test code = 34757-7) Normal [facility] B2470-79-62 18:55:17* Test Item Value Reference Range Interpretation Comme nts TROPONIN I (test code = 0337519552) <=0.034 WAYLON (test code = WAYLON) Reference (Normal) Range (defined by the 99th percentile reference limit): <= 0.034 ng/mL Note: Cardiac troponin begins to rise 3-4 hours after the onset of ischemia. Repeat in 4-6 hours if the sample was drawn within 3-4 hours of the onset of the symptom and found normal. Diagnosis of myocardial injury is made with acute changes in cTn concentrations with at least one serial sample above the 99th percentile upper reference limit (URL), taken together with the patient's clinical presentation. Biotin has been reported to cause a negative bias, interpret results relative to patient's use of biotin. Lab Interpretation (test code = 47385-6) Normal [facility] HospitalCMP2025-02-03 18:46:55* Test Item Value Reference Range Interpretation Comme nts NA (test code = 7377369793) 133 mmol/L 135-145 L K (test code = 6637953511) 4.2 mmol/L 3.5-5.0 CL (test code = 6946945025) 103 mmol/L 98-108 CO2 TOTAL (test code = 8121514618) 21 mmol/L 23-31 L AGAP (test code = 7701193082) 9 2-16 BUN (test code = 2589353587) 26 mg/dL 7-23 H GLUCOSE (test code = 0404586647) 186 mg/dL 70-110 H CREATININE (test code = 2160-0) 0.79 mg/dL 0.50-1.04 TOTAL BILI (test code = 4585838938) 0.6 mg/dL 0.1-1.1 CALCIUM (test code = 8536532651) 9.0 mg/dL 8.6-10.6 T PROTEIN (test code = 6881637626) 6.7 g/dL 6.3-8.2 ALBUMIN (test code = 1959622586) 4.0 g/dL 3.5-5.0 ALK PHOS (test code = 1372871806) 105 U/L 34-122 ALTv (test code = 1742-6) 17 U/L 5-35 AST(SGOT) (test code = 1342387677) 20 U/L 13-40 eGFR (test code = 69748-1) 80.1 mL/min/1.73m2 CKD-EPI eGFR (2020). Assuming creatinine has been stable day-to-day for at least three months, the eGFR indicates Category G2 (60 - 89 mL/min/1.73 m2) Lab Interpretation (test code = 52555-2) Abnormal [facility]XR CHEST 1 [id number] 18:24:14CHEST ONE VIEW HISTORY: ?Chest pain TECHNIQUE: ?AP view of the chest is obtained. FINDINGS: Linear lung markings are seen in the left lung base. Heart sizeis normal. Blunting of the costophrenic angles is seen. There is nopneumothorax. CONCLUSIONS: 1. Left lower lobe subsegmental atelectasis and suspected small bilateralpleural effusionsUniCorpus Christi Medical Center Bay AreaN-Terminal Pro-BNP 2024-09-19 18:08:29* Test Item Value Reference Range Interpretation Comme nts NT-proBNP (test code = 26354-4) 305 pg/mL <=125 WAYLON (test code = WAYLON) Result Indeterminate-Consid er causes of NT-proBNP elevation other than Heart failure such as acute coronary syndrome, pulmonary embolism, pulmonary hypertension, sepsis, stroke, and renal dysfunction. Lab Interpretation (test code = 52581-7) Abnormal [facility] HospitalCBC with Aivb2471-96-69 17:45:05* Test Item Value Reference Range Interpretation Comme nts WBC (test code = 6690-2) 8.09 4.30-11.10 RBC (test code = 789-8) 4.95 3.93-5.25 HGB (test code = 718-7) 14.0 g/dL 11.6-15.0 HCT (test code = 4544-3) 41.7 % 35.7-45.2 MCV (test code = 787-2) 84.2 fL 80.6-95.5 MCH (test code = 785-6) 28.3 pg 25.9-32.8 MCHC (test code = 786-4) 33.6 g/dL 31.6-35.1 RDW-SD (test code = 05742-3) 46.5 fL 39.0-49.9 RDW-CV (test code = 788-0) 15.3 % 12.0-15.5 PLT (test code = 777-3) 292 166-358 MPV (test code = 14120-9) 10.4 fL 9.5-12.9 NRBC/100 WBC (test code = 4873185517) 0.0 0.0-10.0 NRBC x10^3 (test code = 8933547370) See_Comment [Automated messa ge] The system which generated this result transmitted reference range: 10*3/?L. The reference range was not used to interpret this result as normal/abnormal. GRAN MAT (NEUT) % (test code = 770-8) 66.1 % IMM GRAN % (test code = 7104540219) 0.90 % LYMPH % (test code = 736-9) 25.1 % MONO % (test code = 5905-5) 6.3 % EOS % (test code = 713-8) 1.2 % BASO % (test code = 706-2) 0.4 % GRAN MAT x10^3(ANC) (test code = 9631089381) 5.35 10*3/uL 1.88-7.09 IMM GRAN x10^3 (test code = 3482953228) 0.07 10*3/uL 0.00-0.06 H LYMPH x10^3 (test code = 731-0) 2.03 10*3/uL 1.32-3.29 MONO x10^3 (test code = 742-7) 0.51 10*3/uL 0.33-0.92 EOS x10^3 (test code = 711-2) 0.10 10*3/uL 0.03-0.39 BASO x10^3 (test code = 704-7) 0.03 10*3/uL 0.01-0.07 Lab Interpretation (test code = 97561-1) Abnormal [facility] HospitalLipid Panel (83064)(Total Cholesterol, Triglycerides, HDL)2024-08-03 20:58:49* Test Item Value Reference Range Interpretation Comme nts CHOL (test code = 6353890224) 205 mg/dL 120-200 H HDL (test code = 7565630260) 110 mg/dL >=50 HDLC RATIO (test code = 7747047096) 1.9 <=4.5 TRIG (test code = 8636554213) 100 mg/dL 30-170 LDL CHOL (test code = 50636-6) 75 mg/dL <=160 VLDL (test code = 7643985524) 20 mg/dL 5-60 Lab Interpretation (test cod e = 34586-9) Abnormal [facility] Hemoglobin A1C Tdnm9567-99-12 20:06:00* Test Item Value Reference Range Interpretation Comme [facility] POCT HBA1C (test code = 4548-4) 8.2 % 4-6 A Lab Interpretation (test cod e = 96489-6) Abnormal [facility] HospitalDME/SUPPLY YASZAXVZLWIMV7254-97-32 19:26:53 Ordered by an unspecified provider.[facility] Hemoglobin A1C Ueya1139-41-55 13:22:00* Test Item Value Reference Range Interpretation Comme [facility] POCT HBA1C (test code = 4548-4) 7.6 % 4-6 A Lab Interpretation (test cod e = 44982-6) Abnormal [facility] HospitalUrinalysis macro (dipstick) panel - Urine 2024-03-01 11:32:00* Test Item Value Reference Range Interpretation Comme nts Leukocytes (test code = Leukocytes) Negative Nitrite (test code = Nitrite) negative Urobilinogen (test code = Urobilinogen) Normal Protein (test code = Protein) Negative pH (test code = pH) 5.5 Blood (test code = Blood) Negative Specific [place] (test code = Specific [place]) 1.015 Ketone (test code = Ketone) Negative Bilirubin (test code = Bilirubin) Negative Glucose (test code = Glucose) Negative Appearance (test code = Appearance) Clear Color (test code = Color) Yellow [facility] [id number] 18:45:31EXAM: XR THORACIC SPINE 3 VW HISTORY: Pain look for compression. COMPARISON: None.[facility] Hemoglobin A1C [id number] 14:37:00* Test Item Value Reference Range Interpretation Comme [facility] POCT HBA1C (test code = 4548-4) 7.7 % 4-6 A Lab Interpretation (test cod e = 30785-2) Abnormal [facility] Hemoglobin A1C [id number] 14:37:00* Test Item Value Reference Range Interpretation Comme nts POCT HBA1C (test code = 4548-4) 7.7 % 4-6 A Lab Interpretation (test cod e = 78559-9) Abnormal [facility] HEMOGLOBIN A1C [id number] 15:33:00* Test Item Value Reference Range Interpretation Comme nts POCT HBA1C (test code = 4548-4) 7.9 % 4-6 A Lab Interpretation (test cod e = 99082-8) Abnormal [facility] HEMOGLOBIN A1C [id number] 15:33:00* Test Item Value Reference Range Interpretation Comme nts POCT HBA1C (test code = 4548-4) 7.9 % 4-6 A Lab Interpretation (test cod e = 01882-3) Abnormal [facility] HEMOGLOBIN A1C [id number] 13:48:00* Test Item Value Reference Range Interpretation Comme nts POCT HBA1C (test code = 4548-4) 9.1 % 4-6 A Lab Interpretation (test cod e = 16936-2) Abnormal [facility] HEMOGLOBIN A1C [id number] 13:48:00* Test Item Value Reference Range Interpretation Comme nts POCT HBA1C (test code = 4548-4) 9.1 % 4-6 A Lab Interpretation (test cod e = 12354-0) Abnormal [facility] HEMOGLOBIN A1C [id number] 16:04:00* Test Item Value Reference Range Interpretation Comme nts POCT HBA1C (test code = 4548-4) 6.4 % 4-6 A Lab Interpretation (test cod e = 84940-1) Abnormal [facility] HEMOGLOBIN A1C [id number] 16:04:00* Test Item Value Reference Range Interpretation Comme nts POCT HBA1C (test code = 4548-4) 6.4 % 4-6 A Lab Interpretation (test cod e = 20928-2) [facility] [id number] 22:17:00* Test Item Value Reference Range Interpretation Comme nts VIT B12 (test code = 7829077543) 589 pg/mL 240-930 WAYLON (test code = WAYLON) Biotin has been reported to cause a positive bias, interpret results relative to patient's use of biotin. Lab Interpretation (test code = 74758-4) [facility], [id number] 22:17:00* Test Item Value Reference Range Interpretation Comme nts VIT B12 (test code = 2755238445) 589 pg/mL 240-930 WAYLON (test code = WAYLON) Biotin has been reported to cause a positive bias, interpret results relative to patient's use of biotin. Lab Interpretation (test code = 89352-9) [facility] 18:50:00* Test Item Value Reference Range Interpretation Comme nts CALCIUM (test code = 3643657694) 10.4 mg/dL 8.6-10.6 Lab Interpretation (test cod e = 01519-8) [facility] 18:50:00* Test Item Value Reference Range Interpretation Comme nts MAGNESIUM (test code = 8702403698) 1.9 mg/dL 1.7-2.4 Lab Interpretation (test cod e = 05241-5) [facility] 18:50:00* Test Item Value Reference Range Interpretation Comme nts CALCIUM (test code = 5193388637) 10.4 mg/dL 8.6-10.6 Lab Interpretation (test cod e = 88208-1) [facility] 18:50:00* Test Item Value Reference Range Interpretation Comme nts MAGNESIUM (test code = 9399635540) 1.9 mg/dL 1.7-2.4 Lab Interpretation (test cod e = 71779-7) Normal [facility] [id number] 18:49:00* Test Item Value Reference Range Interpretation Comme nts CK (test code = 7788216243) 34 U/L 33-194 Lab Interpretation (test cod e = 30196-5) Normal [facility] [id number] 18:49:00* Test Item Value Reference Range Interpretation Comme nts CK (test code = 4577107561) 34 U/L 33-194 Lab Interpretation (test cod e = 71262-1) Normal [facility] Notes <thead> Date/Time Note Provider Source [facility] [id number] 13:09:18 Future Tests Future scheduled test information is unavailable Pending Tests Pending diagnostic test information is unavailable Future Visits Future appointment information is unavailable Referrals to Other Providers <thead> Reason for Referral Referral Start Date Provider Provider Contact Information Provider Address KASSANDRA REYNOLDS MD Work Phone: [address] [facility] [address] [facility] [address] KASSANDRA REYNOLDS MD Work Phone: [phone] [address] Future Procedures <thead> Procedure Name Ordered Date Scheduled Date Cardiac, BP, Pulse Ox Monitor November 18, 2023 7: 10pm November 18, 2023 7:10pm Insert Peripheral IV Access November 18, 2023 7:10 pm November 18, 2023 7:10pm Remove Clothing/Place in Gown November 18, 2023 7: 10pm November 18, 2023 7:10pm 2L NC Oxygen Therapy November 18, 2023 7:10pm Apri 2023 7:10pm VS - Adult November 18, 2023 7:10pm November 7:10pm Electrocardiogram, Complete November 18, 2023 7:10 pm November 18, 2023 7:10pm CARDIOLOGY CONSULT November 18, 2023 8:53pm November 18, 2023 Place in Observation November 18, 2023 11:33pm Apr 2023 11:29pm ECHOCARDIOGRAM COMPLETE November 18, 2023 11:33pm November 19, 2023 8:00am INITIAL RESPIRATORY TREATMENT November 18, 2023 11 :33pm November 18, 2023 11:29pm TRANSFER ROOM November 19, 2023 12:09am November DISCHARGE PATIENT November 19, 2023 4:30pm November 182023 Cardiac, BP, Pulse Ox Monitor September 26 5:01pm September 26, 2024 5:01pm Insert Peripheral IV Access September 26, 2024 5:01pm September 26, 2024 5:01pm Remove Clothing/Place in Gown September 26 5:01pm September 26, 2024 5:01pm 2L NC Oxygen Therapy September 26, 2024 5:01pm September 26, 2024 5:01pm VS - Adult September 26, 2024 5:01pm Febru [email or web address] 5:01pm Electrocardiogram, Complete September 26, 2024 5:01pm September 26, 2024 5:[address] in Observation September 26, 2024 6:54pm September 26, 2024 6:51pm Resuscitation Status September 26, 2024 6:54pm September 26, 2024 6:51pm CARDIOLOGY CONSULT September 26, 2024 7:20pm Fe bruary 2024 TRANSFER ROOM September 26, 2024 7:40pm Febru rosetta 2024 DISCHARGE PATIENT September 28, 2024 1:31pm Feb ruary 2024 EKG,INITIAL October 19, 2024 9:46am October 9:45am Cardiac, BP, Pulse Ox Monitor October 19, 2024 9: 46am October 19, 2024 9:45am Insert Peripheral IV Access October 19, 2024 9:46 am October 19, 2024 9:45am Remove Clothing/Place in Gown October 19, 2024 9: 46am October 19, 2024 9:45am 2L NC Oxygen Therapy October 19, 2024 9:46am Yordy h 2024 9:45am VS - Adult October 19, 2024 9:46am October 9:45am Electrocardiogram, Complete October 19, 2024 9:46 am October 19, 2024 9:45am CARDIOLOGY CONSULT October 19, 2024 11:49am October 19, 2024 ER to Surgical Services October 19, 2024 1:04pm Sherly ozuna 2024 12:29pm Future Medications Future medication information is unavailable Patient Instructions <tbody> Nonspecific Chest Pain, Adul t, Dnvx-cc-Rryc Nonspecific Chest Pain, Adul t Clopidogrel tablets Isosorbide Mononitrate exten ded-release tablets Codeine; Guaifenesin oral so lution or syrup Aspirin Tablets Lidocaine dermal patch [facility]2025-02-12 15:43:12 Patient Care Team <thead> Team Status: Active Member Role Status Dates KASSANDRA REYNOLDS MD primary care physician Active NORTH CASTAÑEDA MD Emergency Provider Active TANIA INGRAM Next of Kin Active JAENETTE MARSHALL Emergency Contact Active TINA WELLS Guarantor Active [facility] [id number] 15:43:12 [facility]2025-02-12 15:43:12 Future Tests Future scheduled test information is unavailable Pending Tests Pending diagnostic test information is unavailable Future Visits Future appointment information is unavailable Referrals to Other Providers <thead> Reason for Referral Referral Start Date Provider Provider Contact Information Provider Address KASSANDRA REYNOLDS MD Work Phone: [address] [place] [phone] Future Procedures <thead> Procedure Name Ordered Date Scheduled Date Cardiac, BP, Pulse Ox Monitor November 18, 2023 7: 10pm November 18, 2023 7:10pm Insert Peripheral IV Access November 18, 2023 7:10 pm November 18, 2023 7:10pm Remove Clothing/Place in Gown November 18, 2023 7: 10pm November 18, 2023 7:10pm 2L NC Oxygen Therapy November 18, 2023 7:10pm Apri l 2023 7:10pm VS - Adult November 18, 2023 7:10pm November 7:10pm Electrocardiogram, Complete November 18, 2023 7:10 pm November 18, 2023 7:10pm CARDIOLOGY CONSULT November 18, 2023 8:53pm November 18, 2023 Place in Observation November 18, 2023 11:33pm Apr il 2023 11:29pm ECHOCARDIOGRAM COMPLETE November 18, 2023 11:33pm November 19, 2023 8:00am INITIAL RESPIRATORY TREATMENT November 18, 2023 11 :33pm November 18, 2023 11:29pm TRANSFER ROOM November 19, 2023 12:09am November DISCHARGE PATIENT November 19, 2023 4:30pm November 182023 Cardiac, BP, Pulse Ox Monitor September 26 5:01pm September 26, 2024 5:01pm Insert Peripheral IV Access September 26, 2024 5:01pm September 26, 2024 5:01pm Remove Clothing/Place in Gown September 26 5:01pm September 26, 2024 5:01pm 2L NC Oxygen Therapy September 26, 2024 5:01pm September 26, 2024 5:01pm VS - Adult September 26, 2024 5:01pm Febru [email or web address] 5:01pm Electrocardiogram, Complete September 26, 2024 5:01pm September 26, 2024 5:[address] in Observation September 26, 2024 6:54pm September 26, 2024 6:51pm Resuscitation Status September 26, 2024 6:54pm September 26, 2024 6:51pm CARDIOLOGY CONSULT September 26, 2024 7:20pm Fe bruary 2024 TRANSFER ROOM September 26, 2024 7:40pm Febru rosetta 2024 STRESS TEST-REST & STRESS September 27, 2024 2: 57am September 27, 2024 2:56am DISCHARGE PATIENT September 28, 2024 1:31pm Feb ruary 2024 Future Medications Future medication information is unavailable Patient Instructions <tbody> Nonspecific Chest Pain, Adul t, Srhi-qh-Hild Nonspecific Chest Pain, Adul t Clopidogrel tablets Isosorbide Mononitrate exten ded-release tablets Codeine; Guaifenesin oral so lution or syrup Aspirin Tablets Lidocaine dermal patch [facility]2025-02-05 11:32:34 Breyna ordered by provider. [facility]2025-[facility] 11:19:06 Called pharmacy again, they said breyna would be covered now but not dulera, changed back to breyna.Aleksandar Elias MD PhD [facility]2025-02-05 11:07:32 Pharmacy states that rx Mometasone-Formoterol (DULERA) 200-5 mcg/actuation inhaler is not covered. They're requesting a rx for Breyna. [facility] advise [id number] - [place], [place] - [address] AT [facility] [address] [facility] [id number] [facility]25-[facility]-05 10:51:55 Called pharmacy, symbicort and breyna not covered, but dulera is. Dulera rx sent, 5 days pred 50, and Famotidine 40 BID for 14 days given past hx of GERD. Will need repeat Flow cytometry and Immunoglobulins when not acutely ill or receiving steroids (got some in ED as well). Skuumar pearls to help her keep medications down without coughing acutely. If cough continues on Dulera, will RX spriva. Aleksandar Elias MD PhD [facility]2025-02-04 11:50:13 Attempted to call x2, no answer. Will order laboratory evaluation for immunodef, CT thorax, and attempt to set up follow up visit. Mg, Trop, BMP, CRP, CBCwDiff, Nasal Panel, NTproBNP wnl. CXR with bilateral effusions. Concern for immunodeficiency Unclear prognosis. Hx of hypogam on IVIG. More than 10x ABX in the last year for sinopulm infections (PNA and sinusitis per hx). - CD3 SUBSET ASSAY; Future - CD4/CD8 SUBSET ASSAY; Future - CD19 SUBSET ASSAY; Future - CD16+56 SUBSET ASSAY; Future - Misc. Sendout- [facility] Lymphocyte Antigen and Mitogen Proliferation Panel [id number]; Future - Misc. Sendout- [facility] Streptococcus pneumoniae Antibodies, IgG (23 Serotypes) [id number]; Future - if needed post PPSV-23 vaccination and strep pneumo antibodies - Diphtheria & Tetanus IgG; Future - Immunoglobulin G A M Panel; Future - Immunoglobulin E, in form of GCP, Serum; - Misc. Sendout- [id number] B Cell Subset Analysis - Vit D - Procal CT chest w/o contrast ordered to further evaluate parenchyma and r/o bronchiectasis. Aleksandar Elias MD PhD [facility]2025-02-03 15:12:34 Discussed discharge paperwork and prescription with patient and answered all questions. Patient ambulated out of the ED unassisted. Respirations even and unlabored, skin warm and dry, aaox4. GER GROCERY [facility] 11:10:00 Patient with viral symptoms x4 months and went to asthma/allergy center today for testing. MD at clinic thought patient had ST elevation, ecg here does not show STEMI. Patient also with CP associated with viral symptoms. GER GROCERY Sana Flores [facility] - [id number] 11:03:00 Associated Order(s): EKG-12 Lead ROUTINE ONCE Pre-Procedure Diagnose(s): Chest pain, unspecified type Post-Procedure Diagnose(s): Chest pain, unspecified type [facility] Emergency Department Note Patient Name: Tina Wells Date of : 1955 69 year old female Treatment Room: [place] [address] Primary Care Physician: Kassandra Reynolds Patient Escorted by: Self [9] Mode of Arrival: EMS - [place] [32] EMS Treatment Prior to ED Arrival: [facility] treatment comments: omperazole, juardiance, metoprolol and ASA Travel and Exposure Screening: Symptoms Does patient have any of these symptoms?: (not recorded) Exposure Screening Has patient had contact with someone with a communicable disease in the last month?: (not recorded) Diseases exposed to:: (not recorded) Is Patient ?: (not recorded) Exposure Date: (not recorded) Chief Complaint: Chief Complaint Patient presents with Chest Pain Viral Syndrome History of Present Illness: Patient is a 69-year-old female who presents with have concerns of chest pain that has been on and off but got worse today. Patient was at a urgent care due to having concerns of some shortness of breath with cough and congestion that she has been fighting a bronchitis recently. Patient denies any abdominal pain or vomiting or diarrhea at this time. Patient was given nitroglycerin by EMS that did help with her pain. History provided by: Patient and EMS personnel content producer used: No Chest Pain Pain location: Substernal area Pain quality: pressure Pain severity: Moderate Onset quality: Gradual Timing: Intermittent Progression: Waxing and waning Chronicity: New Relieved by: Nothing Worsened by: Nothing Associated symptoms: cough and shortness of breath Associated symptoms: no abdominal pain, no fever, no headache, no nausea and no vomiting Past Medical History/Immunizations: History reviewed. No pertinent past medical history. Tetanus received in last 5 years: No Allergies: Allergies Allergen Reactions Decongest Palpitations Lodine [Etodolac] Swelling Solu-Medrol Mix-O-Vial Palpitations Tetracycline Unknown - See comments Gets pancreatitis Past Social History: Tobacco Use Never smoked or used smokeless tobacco. Passive Exposure: Never Past Surgical History: History reviewed. No pertinent surgical history. Review of Systems: Review of Systems Constitutional: Negative for fever. Respiratory: Positive for cough and shortness of breath. Cardiovascular: Positive for chest pain. Gastrointestinal: Negative for abdominal pain, diarrhea, nausea and vomiting. Neurological: Negative for headaches. Physical Exam: ED Triage Vitals [09/19/24 1109] Weight 68.5 kg (151 lb) Actual or estimated Estimated by patient/family report Height 1.575 m (5' 2") BP 134/71 Pulse 85 Resp 22 Temp 36.7 ?C (98 ?F) Temp source Oral SpO2 98 % Measured on On oxygen Physical Exam Vitals and nursing note reviewed. Constitutional: Appearance: Normal appearance. HENT: Head: Normocephalic. Mouth/Throat: Mouth: Mucous membranes are moist. Eyes: Extraocular Movements: Extraocular movements intact. Cardiovascular: Rate and Rhythm: Normal rate and regular rhythm. Pulses: Normal pulses. Pulmonary: Effort: Pulmonary effort is normal. No respiratory distress. Breath sounds: No wheezing. Abdominal: General: There is no distension. Palpations: Abdomen is soft. Tenderness: There is no abdominal tenderness. There is no guarding. Musculoskeletal: General: No swelling. Skin: General: Skin is warm and dry. Neurological: Mental Status: She is alert. Mental status is at baseline. Psychiatric: Mood and Affect: Mood normal. Behavior: Behavior normal. Radiology: XR CHEST 1 VW Final Result CHEST ONE VIEW HISTORY: Chest pain TECHNIQUE: AP view of the chest is obtained. FINDINGS: Linear lung markings are seen in the left lung base. Heart size is normal. Blunting of the costophrenic angles is seen. There is no pneumothorax. CONCLUSIONS: 1. Left lower lobe subsegmental atelectasis and suspected small bilateral pleural effusions Lab Results: Lab Results N-TERMINAL PRO-BNP - Abnormal Result Value Ref Range NT-proBNP 305 <=125 pg/mL CBC WITH DIFF - Abnormal WBC 8.09 4.30 - 11.10 10*3/?L RBC 4.95 3.93 - 5.25 10*6/?L HGB 14.0 11.6 - 15.0 g/dL HCT 41.7 35.7 - 45.2 % MCV 84.2 80.6 - 95.5 fL MCH 28.3 25.9 - 32.8 pg MCHC 33.6 31.6 - 35.1 g/dL RDW-SD 46.5 39.0 - 49.9 fL RDW-CV 15.3 12.0 - 15.5 % PLT 292 166 - 358 10*3/?L MPV 10.4 9.5 - 12.9 fL NRBC/100 WBC 0.0 0.0 - 10.0 /100 WBCs NRBC x103<0.01 10*3/?L GRAN MAT (NEUT) % 66.1 % IMM GRAN % 0.90 % LYMPH % 25.1 % MONO % 6.3 % EOS % 1.2 % BASO % 0.4 % GRAN MAT x103(ANC) 5.35 1.88 - 7.09 10*3/uL IMM GRAN x1030.07 (*) 0.00 - 0.06 10*3/uL LYMPH x1032.03 1.32 - 3.29 10*3/uL MONO x1030.51 0.33 - 0.92 10*3/uL EOS x1030.10 0.03 - 0.39 10*3/uL BASO x1030.03 0.01 - 0.07 10*3/uL COMP. METABOLIC PANEL (14561) - Abnormal NA 133 (*) 135 - 145 mmol/L K 4.2 3.5 - 5.0 mmol/L CL 103 98 - 108 mmol/L CO2 TOTAL 21 (*) 23 - 31 mmol/L AGAP 9 2 - 16 BUN 26 (*) 7 - 23 mg/dL GLUCOSE 186 (*) 70 - 110 mg/dL CREATININE 0.79 0.50 - 1.04 mg/dL TOTAL BILI 0.6 0.1 - 1.1 mg/dL CALCIUM 9.0 8.6 - 10.6 mg/dL T PROTEIN 6.7 6.3 - 8.2 g/dL ALBUMIN 4.0 3.5 - 5.0 g/dL ALK PHOS 105 34 - 122 U/L ALTv 17 5 - 35 U/L AST(SGOT) 20 13 - 40 U/L eGFR 80.1 mL/min/1.73m2 TROPONIN I - Normal TROPONIN I <0.012 <=0.034 ng/mL INFLUENZA A/B RSV COVID NAAT - Normal Influenza A NAAT Negative Negative Influenza B NAAT Negative Negative RSV by PCR Negative Negative SARS-CoV-2 NAAT Negative Negative TROPONIN I - Normal TROPONIN I <0.012 <=0.034 ng/mL EKG: If EKG completed, see Procedure Note. Orders and Treatments: Orders Placed This Encounter Procedures XR CHEST 1 VW Troponin I N-Terminal Pro-BNP CBC with Diff CMP Influenza A B RSV COVID NAAT Lab Only COVID Interpretation TROPONIN I NASAL CANNULA Orders Placed This Encounter Medications dexamethasone sod phos PF injection 10 mg ondansetron (ZOFRAN (PF)) injection 4 mg ondansetron (ZOFRAN (PF)) injection 4 mg furosemide 20 mg tablet First Provider Eval: ED Events Date/Time Event User Comments 09/19/24 1112 Medical Screening Begins ARNULFO OTERO MD, I. -- 09/19/24 1112 First Provider Evaluation ARNULFO OTERO MD, I. -- ED COURSE ED Course as of 09/19/24 1502 Mon Sep 19, 2024 1308 Second trop at 1420 [YH] 1228 XR CHEST 1 VW CONCLUSIONS: 1. Left lower lobe subsegmental atelectasis and suspected small bilateral pleural effusions [YH] ED Course User Index [YH] Arnulfo Otero MD Diagnosis/Impression as of 09/19/24 1502 Chest pain, unspecified type Pleural effusion Procedures: EKG-12 Lead ROUTINE ONCE Date/Time: 09/19/2024 11:14 AM Performed by: Arnulfo Otero MD Authorized by: Arnulfo Otero MD ECG interpreted by ED Physician in the absence of a barrel roller operator: yes Rate: ECG rate: 93 ECG rate assessment: normal Rhythm: Rhythm: sinus rhythm QRS: QRS axis: Left QRS intervals: Normal QRS conduction: normal ST segments: ST segments: Non-specific T waves: T waves: non-specific MDM: Medical Decision Making The differential diagnosis includes but not limited to CAD, PE, PTX, PNA, Aortic Dissection, Esophageal rupture, pericarditis, myocarditis, chest wall pain/costochondritis, pleurisy, Gastritis/GERD, PUD, pancreatitis. DDX includes causes considered but not specified given they were low prob or unlikely to cause immediate or disability. Workup for unlisted, unlikely, or benign causes would likely have yielded harm exceeding benefit. Amount and/or Complexity of Data Reviewed Independent Historian: EMS Details: Pt with complaints of worsening chest pain better with nitro. Labs: ordered. Radiology: ordered. Decision-making details documented in ED Course. ECG/medicine tests: ordered and independent interpretation performed. Decision-making details documented in ED Course. Risk Prescription drug management. Flowsheet Documentation: Scoring Tools: No data recorded HEART Score: 3 Disposition/Condition: ED Disposition ED Disposition Discharge Condition Stable Comment -- Discharge Medications: Patient's Medications START taking these medications FUROSEMIDE 20 MG TABLET Take 1 tablet by mouth every morning for 7 days. CONTINUE taking these medications which have NOT CHANGED BLOOD SUGAR DIAGNOSTIC (ACCU-CHEK GUIDE TEST STRIPS) STRIP Use as directed BLOOD-GLUCOSE METER (ACCU-CHEK GUIDE GLUCOSE METER) MISC Use as directed BUDESONIDE-FORMOTEROL (BREYNA) 160-4.5 MCG/ACTUATION INHALER Inhale 2 Puffs in the morning and 2 Puffs in the evening. BUSPIRONE 5 MG TABLET Take 1 tablet by mouth in the morning and 1 tablet in the evening. CETIRIZINE 10 MG TABLET Take 1 tablet by mouth. CYCLOBENZAPRINE 10 MG TABLET EMPAGLIFLOZIN (JARDIANCE) 25 MG TAB TABLET Take 1 tablet by mouth every morning. ESCITALOPRAM OXALATE 20 MG TABLET Take 1 tablet by mouth at bedtime. FAMOTIDINE 40 MG TABLET Take 1 tablet by mouth in the morning and 1 tablet in the evening. GLIPIZIDE XL 5 MG 24 HR TABLET Take 1 tablet by mouth daily with breakfast. LANCETS 33 GAUGE MISC Use as directed METOPROLOL SUCCINATE XL 25 MG 24 HR TABLET Take 1 tablet every day by oral route. OMEPRAZOLE 40 MG CAPSULE Take 1 capsule by mouth in the morning. PRAVASTATIN 40 MG TABLET Take 1 tablet by mouth at bedtime. RANOLAZINE 500 MG 12 HR TABLET ranolazine ER 500 mg tablet,extended release,12 hr TAKE 1 TABLET BY MOUTH TWICE DAILY START taking Modified Medications as Prescribed No medications on file STOP taking these medications No medications on file Follow-up: Contact information for follow-up Kassandra Reynolds Specialty: INTERNAL MEDICINE Relationship: PCP - General [address] [place] [address] Justo Mora MD Specialty: PULMONARY DISEASE [facility] [address] [place] [facility] [address] Electronically signed by: Arnulfo Otero MD 09/19/24 1502 [facility]2025-01-28 10:08:38 Left message to offer sooner appointment with Dr. Rogers. [facility]aila Torres [facility]30[facility] 11:44:29 There are a couple available this afternoon if she would like to come then? Parul Cagle MD Allergy/Immunology 09/12/2024 [facility] IM-ALLERGY & IMMUNOLOGY [facility]2025-01-26 16:34:28 Tina Wells is a 69 year old female Pt is scheduled for 09/22 and the appt has been added to the wait list. Patient would like a sooner appt if possible and she prefers Thursday morning if one is available. Patient can be contacted at [phone] (home) Please advise [facility] Alexa [facility]Igsrsi6792-82-04 11:45:00 Images from the original note were not included. Venipuncture collection performed by clean technique on the left anticubitus and left forearm(s). Total of 2 attempts were made. Slight pressure and a bandage/dressing were applied to the site(s). The patient experienced no complications. The following specimens were processed according to instructions and sent to [facility] laboratories per lab order on 08/03/2024 : LT BLUE SST RED LAV PPT DK GREEN (LiHep) DK GREEN (SodH) FARFAN DK BLUE (K2) DK BLUE (S) ACD Blood Culture NIPT/NTD 1 lt green [place] 044514-12-02 14:23:16 Refill has been sent to pharmacy on file. Future Appointments Date Type Provider Dept 08/02/24 Appointment Renee Olivo MD [facility]- Endocrinology Showing future appointments within next 150 days with a meds authorizing provider and meeting all other requirements [facility] Mohini Varghese [place] [id number] 15:02:49 Refill has been sent to pharmacy on file. [facility] Mohini Varghese [place] [id number] 14:53:59 Tina Wells is a 68 year old female Pt is calling stating that she lost her bottle of her medication Disp Refills Start End SOTO glipiZIDE XL 5 mg 24 hr tablet Pt is requesting a new 90 day supply be written and sent to her pharmacy and they try to get insurance to pay for it and if they won't the pt will get the Good RX coupon and self pay for the medication. Pt last taking the medication was yesterday 06/22/24 [place] [id number] 10:17:11 Called and notified patient that orders had been faxed and confirmation received. Patient informed to contact office if any further issues. Rashida Maurice [facility] 09:14:39 Spoke with patient 03/24/24 12:29 and notified her that we had the prescription and chart notes for provider to sign and would notify her once they were signed and faxed to supply company. Patient verbalizes understanding. Rashida Maurice [facility]Mnznhm9710-10-14 07:53:35 Rerouting for closure and completion Rupali ShultzHaywood Regional Medical CenterJpgneh3783-40-82 10:07:34 Tina Wells is a 68 year old female Yasir from diabetic store Pt has order that they are following up on Sent 03/11 resent 03/21 and was told it was being reviewed by provider Pt is out of supplies Please advise Dea DhaliwalCommunity Regional Medical CenterEjylyl4918-17-62 15:39:30 Tina Wells is a 68 year old female Pt is requesting that an Rx and chart notes be sent to the [facility] [email or web address] for her supplys. [facility]- [facility] CenterTrwynn0721-57-95 14:36:17 Medical notes from Myriam Orellana the Diabetes store Damaris McneilRiverview Health InstituteEuymvf5594-65-15 14:41:45 Received Forms from [employer]. Placed in provider box. Mars GarciaCape Fear Valley Hoke HospitalQjnvxo7301-86-35 11:05:48 Tina Wells is a 68 year old female Rick form ELIKE is calling in stating that he will send over medical records request and rx refill request for the pt. Fax number given to Tony. Cabrera stated that the office can be reached at P. [phone] P. [phone] F. [phone] Yossi CarrilloRiverview Health InstituteFzrebl1684-97-58 10:04:08 Patient scheduled at 830am Ronit HansonCommunity Regional Medical CenterManspk5174-42-87 17:36:44 I will see her at 830 Cirilo 3pm on 03/24/24 Renee Olivo MD Division of Endocrinology and Metabolism IM-ENDOCRINOLOGY,DIABETES & METABOLISM [facility]2024-07-25 11:20:45 Please review and advice for OB. Rashida Maurice RNCommunity Regional Medical CenterBhaehx2674-44-91 10:50:52 Spoke to patient and she rather see Renee Olivo due to her having Surgery on 03/04/24 performed Colonoscopy and Endoscopic. Ulcers were found and polyps and very bad gastritis. She would like to see Geovani ELLI. Patient is in a lot of pain and unable to eat. Patient is wanting to know if she will be able to be OB. Please advise. Mars GarciaCape Fear Valley Hoke HospitalTgyxfr7436-06-71 10:12:20 Tina Wells is a 68 year old female pt needs to RS her appt for tomorrow earlier than we have availability to in [facility], she had surgery and needs to discuss medicine but just can not make it tomorrow. Please advise. Mitesh SudhaTanmayCaroMont Regional Medical Center - Mount HollyNawone1284-50-46 13:46:20 Patient denies the need for pain medication. Patient states she has an extensive history with stomach ulcers, polyps, diverticulitis and colon cancer. Patient is concerned that she has been taking metformin 2x daily and gastritis is a side affect. Patient BG 03/08/24 AM 243. Patient reports still taking jardiance, stopped metformin. Patient scheduled for office visit 03/11/24 with Giselle at 1500. Rashida Maurice RNCommunity Regional Medical CenterCokaba9664-87-25 12:38:13 Please also let her know that she should contact her surgeon. GI doctor, or PCP to help her with her pain. SOFTWARE DEVELOPMENT LEADER-GERONTOLOGY MIDLEVEL PROVIDERCommunity Regional Medical CenterLxgeuj6087-09-25 12:05:56 Her last two appointments was with Dr. Malone and then Dr. Lopez. I will be out for sick this week. Please try any other providers who has available slots this week Renee Olivo MD Division of Endocrinology and Metabolism IM-ENDOCRINOLOGY,DIABETES & METABOLISM [facility]2024-07-23 10:49:55 Tina Wells is a 68 year old female Patient calling in stating she needs to speak with nurse, her sugar is high and is unsure of what to do because the medication she takes makes her sick. Patient states she did not receive a call yesterday, and is requesting a call back as soon as possible. Please advise Charmaine RodriguezCommunity Regional Medical CenterWjuyjl9211-32-80 10:31:11 She is welcome to make an appointment with either of us at [facility] or [facility]. T [facility] CenterKsxpzt0163-03-94 09:11:03 Please review and advise. T [facility] CenterLylpuy5864-54-12 08:58:10 Tina Wells is a 68 year old female Pt is calling stating she had surgery on Thursday and they found numerous polyps and removed. Lots of gastritis. She is in excruciating pain. States she does not want to take the metformin because they think this is what caused the polyps. She needs an appt with Dr. Olivo but nothing available soon enough. Pt is crying due to pain being so bad. Please advise [phone] Adalgisa RuizCommunity Regional Medical CenterHgsitj3903-91-48 14:53:32 Done Sherri Lopez MD Maintenance Technician Division of Endocrinology [facility] CenterOafbwb4207-62-71 14:22:10 Called to speak with patient. She confirms that she is currently using: - Glucocard Expression - Strips - Lancets Will send message to provider for new prescription and we may send to [place] for assistance. Lizzy Amezcua RNCommunity Regional Medical CenterDvcmsp9843-81-80 16:43:09 Tina Wells is a 68 year old female Pts current diabetic supplier is no longer in business, pt is asking for assistance with finding a new supplier because she is currently out of her diabetic supplies now. Please call pt back at [phone]. Blanca GaitanKarl [place] [id number] 11:44:28 Pt came by dropped off records from [facility] per provider request, stated she was unable to get [facility] records office was closed until Thursday, records placed in provider's box Alison BetancourtCommunity Regional Medical CenterKyrkpo2003-79-23 11:30:00 Images from the original note were not included. Venipuncture collection performed by clean technique on the left hand. Total of 3 attempts were made. Slight pressure and a bandage/dressing were applied to the site(s). The patient experienced no complications. The following specimens were processed according to instructions and sent to [facility] laboratories per lab order on 11/30/2023 : LT BLUE SST 1 RED LAV 1 PPT DK GREEN (LiHep) DK GREEN (SodH) FARFAN DK BLUE (K2) DK BLUE (S) ACD Blood Culture NIPT/NTD Patient has been identified by and name and was provided with cup, antiseptic towelette, and clean catch instructions. 1 urine specimen(s) sent. Unpreserved 1 Urine Culture Aptima tube Other urine [place] [id number] 10:14:37 BAIRON 07/22/2023 NOV 11/30/2023 continue metformin at current dose. Lizzy Valdivia MA 10/07/2023 10:21 AM [facility]
[2024-11-23 09:22] LABS: Absolute Basophils 0.1 K/uL (0-0.5); Absolute Eosinophils 0.2 K/uL (0-0.5); Absolute Lymphocytes (CBC) 2.6 K/uL (0.7-4.9); Absolute Monocytes 0.7 K/uL (0.1-1.3); Absolute Neutrophil 6.9 K/uL (1.8-8.0); Basophils % 0.7 % (0-1.3); Eosinophils % 1.8 % (0-4.4); Hematocrit 40.2 % (36.0-45.0); Hemoglobin 13.3 g/dL (12.0-15.0); MCH 28.4 pg (27.0-35.0); MCHC 33.2 g/dL (32.0-36.0); MCV 85.4 fL (80-100); MPV 8.2 fL (7.6-11.3); Monocytes % 6.4 % (3.3-12.3); Neutrophils % 66.1 % (41.7-73.7); Nucleated Red Blood Cells % 0.2 % (0-0); Platelets 308 thou/uL (152-406)
--- NOTE | 2024-11-23 09:28 | RAD REPORT ---
EXAM: CT CHEST, ABDOMEN AND PELVIS WITHOUT CONTRAST CLINICAL INDICATION: chest pain after endoscopy, r/o per;Pain TECHNIQUE: CT chest, abdomen and pelvis was performed without contrast, as per department protocol. A xial, sagittal and coronal reconstructions were obtained. One or more of the following dose reduction techniques were used: Automated exposure control, adjustment of the mA and/or kV according to patient size, and/or iterative reconstruction. Unless otherwise specified, incidental findings do not require dedicated imaging follow-up. Examination is limited by the lack of intravenous contrast material. COMPARISON: 02/19/2024 FINDINGS: LUNGS: No evidence of airspace or interstitial process. No nodules. PLEURA: No pleural effusion. No pneumothorax. MEDIASTINUM AND LYMPH NODES: No mediastinal mass or fluid collection. Normal size mediastinal, hilar, and axillary lymph nodes. Diffusely patulous esophagus. OSSEOUS STRUCTURES AND CHEST WALL: Intact. LIVER: Normal in size and contour. No focal lesion or biliary dilatation. Cholecystectomy clips. PANCREAS: Prominent pancreatic atrophy. SPLEEN: Normal size. No focal lesion. ADRENALS: Normal; no mass. KIDNEYS: Normal size and contour. No hydronephrosis. URINARY BLADDER: Normal contour. GASTROINTESTINAL TRACT: No bowel obstruction, free air, significant free fluid or abscess. Moderate diverticulosis coli of the sigmoid colon. APPENDIX: Normal appendix. LYMPH NODES: No lymphadenopathy. MUSCULOSKELETAL: Right SI joint screw is present. Spinal stimulator device. Moderate lower lumbar deg enerative changes. IMPRESSION: No acute abnormalities seen in the chest, abdomen or pelvis.
[2024-11-23] MEDS ORDERED: ONDANSETRON 4 MG/2 ML VIAL ONE (09:48)
[2024-11-23 10:38] LABS: Albumin 3.4 g/dL (3.4-5.0); Anion Gap 9.2 mEq/L (5.0-15.0); Bilirubin Total 0.4 mg/dL (0.2-1.0); Globulin 3.3 g/dL (2.3-3.5); Potassium 4.2 mEq/L (3.5-5.1); Protein, Total 6.7 g/dL (6.4-8.2)
--- NOTE | 2024-11-23 11:03 | EDPHYS ---
Physician Documentation [facility] Name: Tina Elizalde Age: 69 yrs Sex: Female : 1955 Arrival Date: 11/23/2024 Time: 08:51 Bed 6 Private MD: ED Physician Tejal Dangelo HPI: 11/23 11:03 This 69 yrs old Female presents to ER via Stretcher with complaints of Chest gb1 Pain. 11:03 69-year-old female was having an endoscopy today by Dr. Zamarripa and immediately gb1 after the procedure described 10 of the 10 chest pain. She denies any shortness of breath she has history of diabetes, hypertension, pancreatitis and mitral valve prolapse. Patient did not vomit and has not have a fever.. Historical: - Allergies: 08:59 artificial sweetners; db 08:59 Iodine and Iodide Containing Products; db 08:59 Bactrim; db 08:59 Solu-Medrol; db 08:59 TETRACYCLINES; db - PMHx: 08:59 Diabetes - IDDM; heart problems; Hypertension; MVP (Pancreatitis); Pancreatitis; db - PSHx: 08:59 C5-C6 fused (at); R SI joint (at); db - Immunization history:: Adult Immunizations unknown. - Infectious Disease History:: Denies. - Social history:: Smoking status: Patient denies any tobacco usage or history of. Exam: 11:03 Constitutional: This is a well developed, well nourished patient who is awake, alert, gb1 and in no acute distress. Head/Face: Normocephalic, atraumatic. Eyes: Pupils equal round and reactive to light, extra-ocular motions intact. Lids and lashes normal. Conjunctiva and sclera are non-icteric and not injected. Cornea within normal limits. Periorbital areas with no swelling, redness, or edema. ENT: Nares patent. No nasal discharge, no septal abnormalities noted. Tympanic membranes are normal and external auditory canals are clear. Oropharynx with no redness, swelling, or masses, exudates, or evidence of obstruction, uvula midline. Mucous membranes moist. Neck: Trachea midline, no thyromegaly or masses palpated, and no cervical lymphadenopathy. Supple, full range of motion without nuchal rigidity, or vertebral point tenderness. No Meningismus. Chest/axilla: Normal chest wall appearance and motion. Nontender with no deformity. No lesions are appreciated. Cardiovascular: Regular rate and rhythm with a normal S1 and S2. No gallops, murmurs, or rubs. Normal PMI, no JVD. No pulse deficits. Respiratory: Lungs have equal breath sounds bilaterally, clear to auscultation and percussion. No rales, rhonchi or wheezes noted. No increased work of breathing, no retractions or nasal flaring. Abdomen/GI: Soft, non-tender, with normal bowel sounds. No distension or tympany. No guarding or rebound. No evidence of tenderness throughout. Back: No spinal tenderness. No costovertebral tenderness. Full range of motion. Skin: Warm, dry with normal turgor. Normal color with no rashes, no lesions, and no evidence of cellulitis. MS/ Extremity: Pulses equal, no cyanosis. Neurovascular intact. Full, normal range of motion. Neuro: Awake and alert, GCS 15, oriented to person, place, time, and situation. Cranial nerves II-XII grossly intact. Motor strength 5/5 in all extremities. Sensory grossly intact. Cerebellar exam normal. Normal gait. Vital Signs: 08:48 BP 130 / 66; Pulse 78; Resp 16; Temp 97.3; Pulse Ox 95% ; Weight 67.13 kg; Height 5 ft. db 1 in. ; Pain 10/10; 09:00 BP 154 / 80; Pulse 78; Resp 16; Pulse Ox 95% on R/A; db 10:30 BP 120 / 54; Pulse 69; Resp 16; Pulse Ox 95% on R/A; db 11:00 BP 116 / 54; Pulse 68; Resp 16; Pulse Ox 94% ; cm10 08:48 Body Mass Index 27.96 (67.13 kg, 154.94 cm) db 08:48 Pain Scale: Adult db MDM: 08:57 Medical Screening Exam initiated gb1 11:03 Data reviewed: vital signs, nurses notes, lab test result(s), radiologic studies, CT gb1 scan. ED course: Ms. Tina Black is a 69-year-old female here status post an endoscopy with Dr. Zamarripa who had immediate chest pain after the procedure. CT chest abdomen pelvis reveals no free air doubt perforation at this time. Enzymes and other labs are normal. I have discussed the case with Dr. Zamarripa post evaluation here in the emergency department and he is comfortable with discharging the patient home. I have given the patient explicit return precautions which he is compliant to prior to leaving the ER today. Her sons at the bedside and has no other questions or concerns at this time. Patient's discharge blood pressure is 120/54 heart rate is 70.. 11/23 09:00 Order name: CBC with Diff; Complete Time: 09:43 gb1 11/23 09:00 Order name: CMP; Complete Time: 10:44 gb1 11/23 09:00 Order name: Lipase; Complete Time: 10:44 gb1 11/23 09:00 Order name: CT Chest Abdomen Pelvis W/O Contrast; Complete Time: :43 gb1 11/23 09:00 Order name: IV Saline Lock; Complete Time: 09:14 gb1 11/23 09:00 Order name: Labs collected and sent; Complete Time: 09:17 gb1 Administered Medications: 09:50 Drug: Ondansetron IVP 4 mg IVP once; over 2 minutes Route: IVP; Site: left hand; iw 11:19 Follow up: Response: No adverse reaction cm10 Disposition Summary: 11/23/24 11:02 Discharge Ordered Notes: Location: Home gb1 Problem: new gb1 Symptoms: have improved gb1 Condition: Stable gb1 Diagnosis - Chest pain on breathing gb1 Followup: gb1 - With: Private Physician - When: - Reason: Recheck today's complaints Discharge Instructions: - Discharge Summary Sheet gb1 - Nonspecific Chest Pain, Adult gb1 Forms: - Medication Reconciliation Form gb1 - Antibiotic Education gb1 - Prescription Opioid Use gb1 - Patient Portal Instructions gb1 - Leadership Thank You Letter gb1 Signatures: Dispatcher [employer] EDRani Ta RN RN iw Amara Guerra RN RN db Tejal Dangelo MD MD gb1 Perri Logan RN cm10 Corrections: (The following items were deleted from the chart) 08:59 08:59 PSHx: C5-C6 fused (at); db db 09:11 09:11 CBC+H.LAB.BRZ ordered. EDMS EDMS 09:11 09:11 COMPREHENSIVE METABOLIC PANEL+C.LAB.BRZ ordered. EDMS EDMS 09:11 09:11 LIPASE+C.LAB.BRZ ordered. EDMS EDMS 09:11 09:11 Chest Abdomen Pelvis Wo Con+CT.RAD.BRZ ordered. EDMS EDMS
--- NOTE | 2024-11-23 11:03 | ER ---
Nurse's Notes [facility] Name: Tina Elizalde Age: 69 yrs Sex: Female : 1955 Arrival Date: 11/23/2024 Time: 08:51 Bed 6 Private MD: Diagnosis: Chest pain on breathing Presentation: 11/23 08:48 Chief complaint: Patient states: PATIENT IS COMING FROM RECOVERY. EGD THIS AM. STARTED db WITH CHEST PAIN AT 0812 AFTER EGD. PATIENT GIVEN ZOFRAN 4 MG PRIOR TO PROCEDURE. FOR PAIN GIVEN MORPHINE 4 MG, FENTANYL 50 MCG TOTAL IN 2 25 MCG DOSES. COMPLAINS NOW OF 10/10 CHEST PAIN AND NAUSEA. Coronavirus screen: Client denies travel out of the [place] in the last 14 days. At this time, the client does not indicate any symptoms associated with coronavirus-19. Ebola Screen: Patient negative for fever greater than or equal to 101.5 degrees Fahrenheit, and additional compatible Ebola Virus Disease symptoms Patient denies exposure to infectious person. Patient denies travel to an Ebola-affected area in the 21 days before illness onset. No symptoms or risks identified at this time. Initial Sepsis Screen: Does the patient meet any 2 criteria? No. Patient's initial sepsis screen is negative. Does the patient have a suspected source of infection? No. Patient's initial sepsis screen is negative. Risk Assessment: Do you want to hurt yourself or someone else? Patient reports no desire to harm self or others. Onset of symptoms was November 23, 2024. Care prior to arrival: IV initiated. 24 G LEFT HAND Glucose check: 228. 08:48 Method Of Arrival: Stretcher db 08:48 Acuity: ALETHEA 2 db Triage Assessment: 08:59 General: Appears in no apparent distress. uncomfortable, Behavior is cooperative, db anxious. Pain: Complains of pain in chest. Neuro: Level of Consciousness is awake, alert, obeys commands, Oriented to person, place, time, situation. Cardiovascular: Reports chest pain. Respiratory: Airway is patent Respiratory effort is even, unlabored, Respiratory pattern is regular, symmetrical. GI: Reports nausea. Historical: - Allergies: 08:59 artificial sweetners; db 08:59 Iodine and Iodide Containing Products; db 08:59 Bactrim; db 08:59 Solu-Medrol; db 08:59 TETRACYCLINES; db - PMHx: 08:59 Diabetes - IDDM; heart problems; Hypertension; MVP (Pancreatitis); Pancreatitis; db - PSHx: 08:59 C5-C6 fused (at); R SI joint (at); db - Immunization history:: Adult Immunizations unknown. - Infectious Disease History:: Denies. - Social history:: Smoking status: Patient denies any tobacco usage or history of. Screenin:53 [facility] ED Fall Risk Assessment (Adult) History of falling in the last 3 months, db including since admission No falls in past 3 months (0 pts) Confusion or Disorientation No (0 pts) Intoxicated or Sedated No (0 pts) Impaired Gait No (0 pts) Mobility Assist Device Used No (0 pt) Altered Elimination No (0 pt) Score/Fall Risk Level 0 - 2 = Low Risk Oriented to surroundings, Maintained a safe environment. Abuse screen: Denies threats or abuse. Denies injuries from another. Nutritional screening: No deficits noted. Tuberculosis screening: No symptoms or risk factors identified. Assessment: 09:53 Reassessment: Patient appears in no apparent distress at this time. Patient and/or db family updated on plan of care and expected duration. Pain level reassessed. Patient is alert, oriented x 3, equal unlabored respirations, skin warm/dry/pink. General: Appears in no apparent distress. comfortable, Behavior is calm, cooperative. Pain: Pain does not radiate. Pain began gradually. Neuro: Level of Consciousness is awake, alert, obeys commands, Oriented to person, place, time, situation, Speech is normal. Respiratory: Airway is patent Respiratory effort is even, unlabored, Respiratory pattern is regular, symmetrical. 10:00 Reassessment: pt feeling better, requesting water, Dr. Dangelo notified, will wait to iw give water until nausea subsides. 10:58 Reassessment: Patient appears in no apparent distress at this time. Patient and/or db family updated on plan of care and expected duration. Pain level reassessed. Patient is alert, oriented x 3, equal unlabored respirations, skin warm/dry/pink. Patient states feeling better. Patient states symptoms have improved. Pain: Denies pain. Vital Signs: 08:48 BP 130 / 66; Pulse 78; Resp 16; Temp 97.3; Pulse Ox 95% ; Weight 67.13 kg; Height 5 ft. db 1 in. ; Pain 10/10; 09:00 BP 154 / 80; Pulse 78; Resp 16; Pulse Ox 95% on R/A; db 10:30 BP 120 / 54; Pulse 69; Resp 16; Pulse Ox 95% on R/A; db 11:00 BP 116 / 54; Pulse 68; Resp 16; Pulse Ox 94% ; cm10 08:48 Body Mass Index 27.96 (67.13 kg, 154.94 cm) db 08:48 Pain Scale: Adult db ED Course: 08:55 Patient arrived in ED. db 08:57 Tejal Dangelo MD is Attending Physician. gb1 08:58 Triage completed. db 08:59 Arm band placed on Patient placed in an exam room. db 09:00 Maintain EMS IV. Dressing intact. Good blood return noted. Site clean \T\ dry. Gauge \T\ db site: 24 G LEFT HAND. Patient maintains SpO2 saturation greater than 95% on room air. 09:01 Amara Guerra, RN is Primary Nurse. db 09:23 CT Chest Abdomen Pelvis W/O Contrast In Process Unspecified. EDMS 09:53 Patient has correct armband on for positive identification. Bed in low position. Call db light in reach. Side rails up X 1. Provided Education on: CHEST PAIN. Client placed on continuous cardiac and pulse oximetry monitoring. NIBP monitoring applied. athletic monitor on. Pulse ox on. NIBP on. Warm blanket given. Pillow given. 11:20 No provider procedures requiring assistance completed. IV discontinued, intact, cm10 bleeding controlled, No redness/swelling at site. Pressure dressing applied. Administered Medications: 09:50 Drug: Ondansetron IVP 4 mg IVP once; over 2 minutes Route: IVP; Site: left hand; iw 11:19 Follow up: Response: No adverse reaction cm10 Medication: 09:53 VIS not applicable for this client. db Outcome: 11:02 Discharge ordered by . gb1 11:20 Discharged to home ambulatory, with family, cm10 11:20 Condition: good 11:20 Discharge instructions given to patient, Instructed on discharge instructions, follow up and referral plans. Demonstrated understanding of instructions, follow-up care, 11:20 Patient left the ED. cm10 Signatures: Dispatcher [employer] EDMS Rani Castaneda RN Amara Blackburn RN Perri Granado RN EDUARDO cm10 Tejal Dangelo MD MD gb1 Corrections: (The following items were deleted from the chart) 08:59 08:59 PSHx: C5-C6 fused (at); jameel jorgensen
[2024-11-23 11:38] VITALS: TEMP 97.9
[2024-11-23 11:40] VITALS: BP 134/76; O2SAT 100
== END 2024-11-23 11:20 | disposition home or self-care (01) ==
LOC: ER 08:51
DX: R07.1 Chest pain on breathing (principal); I10 Essential (primary) hypertension; E11.9 Type 2 diabetes mellitus without complications; Z98.890 Other specified postprocedural states
CPT/HCPCS: 85025; 36415; 83690; 80053; 71250; 74176; J2405